=== PATIENT | male | born 1945 | race Caucasian/White ===

== ENCOUNTER → 2017-10-06 11:25 | Outpatient (CLI) | payer MEDICARE, OTHER, SELFPAY ==
[2017-10-06 11:47] LABS: Basophils % 0.3 % (0.1-2.0); Eosinophils # 0.3 K/mm3 (0.0-0.4); Hematocrit 34.7 % (42.0-52.0); Hemoglobin 11.4 g/dL (14.1-18.0); Lymphocytes # 1.7 K/mm3 (0.7-4.5); Lymphocytes % 15.5 K/mm3 (10-50); Mean Corpuscular HGB Conc 32.8 g/dL (31.8-35.4); Mean Corpuscular Hemoglobin 27.6 pg (27.0-31.2); Mean Corpuscular Volume 84.3 fl (80-94); Mean Platelet Volume 9.1 fl (7.4-10.4); Monocytes # 0.9 K/mm3 (0.1-1.0); Monocytes % 8.2 % (1.7-9.3); Neutrophils # 7.9 K/mm3 (1.8-7.8); Neutrophils % 72.9 % (37.0-80.0); Platelet Count 153 K/mm3 (142-424); Red Blood Count 4.11 M/mm3 (4.60-6.20); Red Cell Distribution Width 13.8 % (11.5-17.5); White Blood Count 10.8 K/mm3 (4.8-10.8)
[2017-10-06 12:53] LABS: Alanine Aminotransferase 30 U/L (12-78); Albumin Level 3.5 gm/dL (3.4-5.0); Albumin/Globulin Ratio 1.1 (1.1-1.8); Alkaline Phosphatase 68 U/L (46-116); Anion Gap 11.1 mEq/L (5-15); Aspartate Amino Transferase 13 U/L (15-37); Bilirubin,Total 0.5 mg/dL (0.2-1.0); Blood Urea Nitrogen 28 mg/dL (7-18); Calcium 8.4 mg/dL (8.5-10.1); Carbon Dioxide 29 mmol/L (21.0-32.0); Chloride 103 mmol/L (98-107); Creatinine,Serum 1.48 mg/dL (0.70-1.30); Estimated Glomerular Filt Rate 47 ml/min (>60); GFR (African American) 56 ML/MIN (>60); Globulin 3.2 gm/dl (1.3-3.2); Glucose 103 mg/dL (74-106); Potassium 4.1 mmoL/L (3.5-5.1); Sodium 139 mmol/L (136-145); Total Protein,Serum 6.7 gm/dL (6.4-8.2)
== END ==
PROVIDERS: PCP Nurse Practitioner Family; Visit Provider Nurse Practitioner Family
DX: J18.0 Bronchopneumonia, unspecified organism (principal); R42 Dizziness and giddiness; R19.7 Diarrhea, unspecified
CPT/HCPCS: 36415; 80053; 85025

== ENCOUNTER → 2018-01-20 10:31 | Outpatient (CLI) | payer MEDICARE, OTHER, SELFPAY ==
[2018-01-20 10:50] LABS: Basophils % 0.3 % (0.1-2.0); Eosinophils # 0.1 K/mm3 (0.0-0.4); Eosinophils % 1.4 % (0.1-12.0); Hematocrit 37.3 % (42.0-52.0); Hemoglobin 12.4 g/dL (14.1-18.0); Lymphocytes # 1.9 K/mm3 (0.7-4.5); Lymphocytes % 21.4 K/mm3 (10-50); Mean Corpuscular HGB Conc 33.3 g/dL (31.8-35.4); Mean Corpuscular Hemoglobin 28.1 pg (27.0-31.2); Mean Corpuscular Volume 84.4 fl (80-94); Mean Platelet Volume 7.6 fl (7.4-10.4); Monocytes # 0.7 K/mm3 (0.1-1.0); Monocytes % 7.6 % (1.7-9.3); Neutrophils # 6.2 K/mm3 (1.8-7.8); Neutrophils % 69.4 % (37.0-80.0); Platelet Count 208 K/mm3 (142-424); Red Blood Count 4.42 M/mm3 (4.60-6.20); Red Cell Distribution Width 13.4 % (11.5-17.5); White Blood Count 8.9 K/mm3 (4.8-10.8)
--- NOTE | 2018-01-20 11:11 | XR_ITS ---
XR chest 2V HISTORY: Cough, COPD ITS.REASON: COPD ORDERING PHYSICIAN: Ronna Bush PATIENT AGE: 72 years COMPARISON: 09/26/2017 FINDINGS: The cardiomediastinal silhouette and pulmonary vascularity are within normal limits. The lungs are clear without infiltrates, suspicious nodules, or pleural effusions. No acute bony abnormalities. IMPRESSION: Negative chest, no acute finding
[2018-01-20 12:13] LABS: Alanine Aminotransferase 26 U/L (12-78); Albumin Level 3.7 gm/dL (3.4-5.0); Albumin/Globulin Ratio 1.1 (1.1-1.8); Alkaline Phosphatase 98 U/L (46-116); Anion Gap 13.2 mEq/L (5-15); Aspartate Amino Transferase 18 U/L (15-37); Bilirubin,Total 0.5 mg/dL (0.2-1.0); Blood Urea Nitrogen 22 mg/dL (7-18); Calcium 9.1 mg/dL (8.5-10.1); Carbon Dioxide 27 mmol/L (21.0-32.0); Chloride 103 mmol/L (98-107); Chol/HDL Ratio 3.3 (1-3.5); Cholesterol 166 mg/dL (140-200); Creatinine,Serum 1.36 mg/dL (0.70-1.30); Estimated Glomerular Filt Rate 51 ml/min (>60); GFR (African American) 62 ML/MIN (>60); Globulin 3.4 gm/dl (1.3-3.2); Glucose 91 mg/dL (74-106); HDL Cholesterol 50 mg/dL (27-67); LDL Cholesterol 94 mg/dL (0-130); Potassium 4.2 mmoL/L (3.5-5.1); Sodium 139 mmol/L (136-145); Thyroid Stimulating Hormone 1.79 uIU/ml (0.358-3.740); Total Protein,Serum 7.1 gm/dL (6.4-8.2); Triglycerides 109 mg/dL (30-200); VLDL Cholesterol 22 mg/dL (0-40)
== END ==
PROVIDERS: Visit Provider Nurse Practitioner Family
DX: Z00.00 Encounter for general adult medical examination without abnormal findings (principal); E03.9 Hypothyroidism, unspecified; J44.1 Chronic obstructive pulmonary disease with (acute) exacerbation
CPT/HCPCS: 36415; 71046; 80053; 80061; 84443; 85025

== ENCOUNTER → 2018-05-10 15:48 | Outpatient (CLI) | payer MEDICARE, OTHER, SELFPAY ==
--- NOTE | 2018-05-10 16:06 | XR_ITS ---
XR chest 2V HISTORY: ITS.REASON: COPD, SOA, COUGH ORDERING PHYSICIAN: Ronna Bush PATIENT AGE: 72 years COMPARISON: 01/20/2018 FINDINGS: Borderline cardiomegaly without failure. No lobar consolidation or collapse. There is mild biapical pleural thickening unchanged. The mediastinum is somewhat prominent and may be related to mediastinal lipomatosis. This is not significantly changed. No acute bony anomalies. There are degenerative changes in the thoracic spine. IMPRESSION: No acute finding
[2018-05-10 16:46] LABS: Basophils % 0.2 % (0.1-2.0); Eosinophils % 0.3 % (0.1-12.0); Hematocrit 37.4 % (42.0-52.0); Hemoglobin 11.8 g/dL (14.1-18.0); Lymphocytes # 0.7 K/mm3 (0.7-4.5); Mean Corpuscular HGB Conc 31.6 g/dL (31.8-35.4); Mean Corpuscular Hemoglobin 26.9 pg (27.0-31.2); Mean Corpuscular Volume 84.9 fl (80-94); Mean Platelet Volume 7.5 fl (7.4-10.4); Monocytes # 0.3 K/mm3 (0.1-1.0); Monocytes % 3.4 % (1.7-9.3); Neutrophils # 8.6 K/mm3 (1.8-7.8); Neutrophils % 89.1 % (37.0-80.0); Platelet Count 135 K/mm3 (142-424); Red Cell Distribution Width 14.5 % (11.5-17.5); White Blood Count 9.6 K/mm3 (4.8-10.8)
[2018-05-10 16:55] LABS: MANUAL DIFFERENTIAL MANUAL DIFFERENTIAL (MANUAL DIFF)
[2018-05-10 17:32] LABS: Alanine Aminotransferase 30 U/L (12-78); Albumin Level 3.2 gm/dL (3.4-5.0); Albumin/Globulin Ratio 1.1 (1.1-1.8); Alkaline Phosphatase 57 U/L (46-116); Aspartate Amino Transferase 10 U/L (15-37); Bilirubin,Total 0.6 mg/dL (0.2-1.0); Blood Urea Nitrogen 19 mg/dL (7-18); Calcium 8.2 mg/dL (8.5-10.1); Carbon Dioxide 25 mmol/L (21.0-32.0); Chloride 102 mmol/L (98-107); Creatinine,Serum 1.43 mg/dL (0.70-1.30); Estimated Glomerular Filt Rate 48 ml/min (>60); GFR (African American) 59 ML/MIN (>60); Globulin 2.9 gm/dl (1.3-3.2); Glucose 184 mg/dL (74-106); Sodium 138 mmol/L (136-145); Total Protein,Serum 6.1 gm/dL (6.4-8.2)
[2018-05-10 17:33] LABS: Lymphocytes % 4 % (10-50); Monocytes % 1 % (2-9); Neutrophils % 95 % (42-76); Platelet Estimate Slight Decrease; RBC Morphology Normal; Total Cells Counted 100
== END ==
PROVIDERS: PCP Nurse Practitioner Family; Visit Provider Nurse Practitioner Family
DX: R05 Cough (principal); R06.02 Shortness of breath; J44.1 Chronic obstructive pulmonary disease with (acute) exacerbation
CPT/HCPCS: 36415; 71046; 80053; 85007; 85025

== ENCOUNTER 2018-05-12 13:55 | Inpatient (IN) ==
[2018-05-12 15:41] LABS: Basophils % 0.1 % (0.1-2.0); Eosinophils # 0.1 K/mm3 (0.0-0.4); Eosinophils % 0.5 % (0.1-12.0); Hematocrit 34.2 % (42.0-52.0); Hemoglobin 11.1 g/dL (14.1-18.0); Lymphocytes # 0.9 K/mm3 (0.7-4.5); Lymphocytes % 9.8 K/mm3 (10-50); Mean Corpuscular HGB Conc 32.5 g/dL (31.8-35.4); Mean Corpuscular Hemoglobin 27.5 pg (27.0-31.2); Mean Corpuscular Volume 84.6 fl (80-94); Mean Platelet Volume 7.3 fl (7.4-10.4); Monocytes # 0.3 K/mm3 (0.1-1.0); Monocytes % 3.3 % (1.7-9.3); Neutrophils # 7.8 K/mm3 (1.8-7.8); Neutrophils % 86.2 % (37.0-80.0); Platelet Count 151 K/mm3 (142-424); Red Blood Count 4.04 M/mm3 (4.60-6.20); Red Cell Distribution Width 14.5 % (11.5-17.5); White Blood Count 9.1 K/mm3 (4.8-10.8)
[2018-05-12 15:49] LABS: Anion Gap 8.8 mEq/L (5-15); Calcium 8.2 mg/dL (8.5-10.1); Potassium 3.8 mmoL/L (3.5-5.1)
--- NOTE | 2018-05-12 15:59 | Pharmacy Consult Notes ---
[facility] Pharmacy VTE Monitoring - Patient Demographics Admission date: 05/12/18 Report Date: 05/12/18 Time: 15:59 Allergies/Adverse Reactions: Patient Allergies menthol [From BenGay] Allergy (Mild, Verified 05/12/18 15:58) Unknown allergy reaction methyl salicylate [From BenGay] Allergy (Mild, Verified 05/12/18 15:58) Unknown allergy reaction ramipril [From ALTACE] Allergy (Mild, Verified 05/12/18 15:58) Unknown allergy reaction tetracycline [TETRACYCLINE] Allergy (Mild, Verified 05/12/18 15:58) Unknown allergy reaction tolmetin [From TOLECTIN] Allergy (Mild, Verified 05/12/18 15:58) Unknown allergy reaction tramadol [From ULTRAM] Allergy (Mild, Verified 05/12/18 15:58) Unknown allergy reaction Height: 1.85 m Weight: 130.408 kg - VTE Risk Labs: VTE Related Lab Results Hgb 11.1 g/dL (14.1-18.0) L 05/12/18 15:20 Hct 34.2 % (42.0-52.0) L 05/12/18 15:20 Plt Count 151 K/mm3 (142-424) 05/12/18 15:20 BUN 20 mg/dL (7-18) H 05/12/18 15:20 Creatinine 1.18 mg/dL (0.70-1.30) 05/12/18 15:20 Estimated Creat Clear 103 mL/min (0-300) 05/12/18 15:20 VTE Risk Level: Very Low Risk - Prophylaxis VTE Prophylaxis Ordered?: Yes Types of VTE Prophylaxis: TEDS Knee High Location of Applied Device: Bilateral Lower Extremeties - VTE Diagnosis Confirmed Treatment or plan recommended: Continue Current Treatment
[2018-05-12 16:49] LABS: Lymphocytes % 14 % (10-50); Monocytes % 2 % (2-9); Neutrophils % 84 % (42-76); RBC Morphology Normal; Total Cells Counted 100
--- NOTE | 2018-05-12 17:52 | History & Physical Report ---
*Admission Date: 05/12/18 *Chief complaint: Shortness of air and cough *History of present illness: 72-year-old white male with long history of COPD, prednisone and antibiotics over the past week with significant history of exacerbation. Has been treated with Augmentin, doxycycline and prednisone but came to the office today with cough, congestion. Found to have wheezing. Dyspnea. Admitted to hospital for in-hospital care for COPD exacerbation given failure of outpatient therapy. [facility] History I have reviewed the patient's past medical history: Yes Medical History: Reports:: BPH, Chronic Obstructive Pulmonary Disease (COPD) ("just mild" per pt), Coronary Artery Disease, Gastroesophageal Reflux Disease(GERD), Hyperlipidemia, Hypertension Denies:: Cancer, Diabetes Mellitus Type 1, Diabetes Mellitus Type 2, MRSA Laterality Cases: Bilateral: Arthroscopy Hip, Total Hip Replacement Other Surgeries: Yes: Other Amputation: No Fractures: No - *Social History Educational Level: Completed High School Smoking Status: Former smoker Alcohol Intake: never Occupational Status: retired Housing: house Household Members: spouse, children - Psychiatric History Expresses thoughts of harming self/others: None Suicide Plan Description: No Plan Review of Systems - Review of Systems Review of systems:: pertinent systems reviewed and negative unless documented below - Constitutional Denies anorexia, Denies body ache(s) - Eyes Denies blurry vision - ENT Denies bleeding gums, Denies change in voice - *Cardiovascular Reports shortness of breath, Reports shortness of breath with activity, Reports leg swelling, Denies chest pain, Denies chest pain at rest, Denies irregular heart rhythm, Denies leg sores, Denies shortness of breath when lying down - *Respiratory Reports change in phlegm color, Reports chest congestion, Reports cough, Reports shortness of breath, Reports excessive phlegm production, Denies coughing up blood, Denies pain on inspiration - *Gastrointestinal Denies abdominal pain, Denies belching, Denies coffee ground vomit, Denies constipation, Denies difficulty swallowing - *Genitourinary Denies difficulty urinating - *Musculoskeletal Denies abnormal walking, Denies joint pain - Integumentary/Breasts Denies hair loss - *Neurologic Denies abnormal walking Meds Home Medications Medication Instructions Recorded Confirmed Type Albuterol Sulfate [Albuterol HFA 90 mcg INHALATION DAILY 09/26/17 05/12/18 History Inhaler] Amlodipine Besylate [Amlodipine 10 mg PO DAILY 09/26/17 05/12/18 History 10mg Tab] Carvedilol [Carvedilol 25mg Tab] 25 mg PO BID 09/26/17 05/12/18 History Gabapentin [Gabapentin 300mg Cap] 300 mg PO BID 09/26/17 05/12/18 History Montelukast Sodium [Singulair 10mg 10 mg PO PM 09/26/17 05/12/18 History tablet] Pantoprazole Sodium [Protonix 40mg 40 mg PO DAILY 09/26/17 05/12/18 History tablet] Simvastatin 10 mg PO DAILY 09/26/17 05/12/18 History Amoxicillin/Potassium Clav 1 tab PO Q12H PRN 05/12/18 05/12/18 History [Augmentin 875-125 Tablet] Aspirin [Aspirin 81mg chewable 81 mg PO DAILY 05/12/18 05/12/18 History tab] Budesonide/Formoterol Fumarate 10.2 gm IH BID 05/12/18 05/12/18 History [Symbicort 160-4.5 Mcg Inhaler] Escitalopram Oxalate 20 mg PO DAILY 05/12/18 05/12/18 History Levothyroxine Sodium 50 mcg PO DAILY 05/12/18 05/12/18 History [Levothyroxine 50mcg (0.05mg) Tab] Metformin HCl [Metformin HCl ER] 500 mg PO BID 05/12/18 05/12/18 History predniSONE [Prednisone 20mg 20 mg PO BID 05/12/18 05/12/18 History Tab] Allergies Allergy/AdvReac Type Severity Reaction Status Date / Time menthol [From BenGay] Allergy Mild Unknown Verified 05/12/18 15:58 allergy reaction methyl salicylate Allergy Mild Unknown Verified 05/12/18 15:58 [From BenGay] allergy reaction ramipril [From ALTACE] Allergy Mild Unknown Verified 05/12/18 15:58 allergy reaction tetracycline [TETRACYCLINE] Allergy Mild Unknown Verified 05/12/18 15:58 allergy reaction tolmetin [From TOLECTIN] Allergy Mild Unknown Verified 05/12/18 15:58 allergy reaction tramadol [From ULTRAM] Allergy Mild Unknown Verified 05/12/18 15:58 allergy reaction Exam Vital signs and Labs for Last 24 Hours: Temp Pulse Resp BP Pulse Ox 97.9 F 66 20 150/83 98 05/12/18 15:07 05/12/18 15:07 05/12/18 15:07 05/12/18 15:07 05/12/18 15:44 Laboratory Results - last 24 hr 05/12/18 15:20: Sodium 135 L, Potassium 3.8, Chloride 103, Carbon Dioxide 27, Anion Gap 8.8, BUN 20 H, Creatinine 1.18, Estimated Creat Clear 103, Estimated GFR 61, Est GFR ( Amer) 73, Glucose 141 H, Calcium 8.2 L 05/12/18 15:20: WBC 9.1, RBC 4.04 L, Hgb 11.1 L, Hct 34.2 L, MCV 84.6, MCH 27.5, MCHC 32.5, RDW 14.5, Plt Count 151, MPV 7.3 L, Neut % (Auto) 86.2 H, Lymph % (Auto) 9.8 L, [place] % (Auto) 3.3, Eos % (Auto) 0.5, Baso % (Auto) 0.1, Neut # (Auto) 7.8, Lymph # (Auto) 0.9, [place] # (Auto) 0.3, Eos # (Auto) 0.1, Baso # (Auto) 0.0, Total Counted 100, Neutrophils % (Manual) 84 H, Lymphocytes % (Manual) 14, Monocytes % (Manual) 2, Platelet Estimate Normal, RBC Morphology Normal 05/12/18 15:20: Mycoplasma pneumon IgM Non-reactive 05/12/18 16:30: Influenza Type A Ag Negative, Influenza Type B Ag Negative I & O for Last 24 hours: Intake & Output 05/10/18 05/11/18 05/12/18 05/13/18 11:59 11:59 11:59 11:59 Weight 287 lb 8 oz Narrative: Oropharynx clear, no JVD, ENT exam otherwise clear. Lungs with rhonchi and wheezing in both lower and upper lung hammonds. Anterior and posterior lung hammonds have rhonchi in equal amounts. Heart rate regular but exam difficult because of wheezing and his obesity. Abdomen soft. 2+ ankle edema to the mid dukes. Old finding apparently. No skin breakdown. Patient is alert and oriented 3. Morbid obesity noted. Assessment and Plan (1) Chronic systolic CHF (congestive heart failure), NYHA class 2 Current visit: Yes Status: Acute Category: Medical Code(s): I50.22 - Chronic systolic (congestive) heart failure IV Lasix. Does not seem to be a significant exacerbation but given his IV fluids with antibiotics we will guard against fluid overload (2) Morbid obesity Current visit: Yes Status: Acute Category: Medical Code(s): E66.01 - Morbid (severe) obesity due to excess calories Complicates all aspects of his care (3) Hypertension, essential Current visit: Yes Status: Acute Category: Medical Code(s): I10 - Essential (primary) hypertension Complicate and factor (4) Hypothyroidism (acquired) Current visit: Yes Status: Acute Category: Medical Code(s): E03.9 - Hypothyroidism, unspecified Continue levothyroxine (5) History of depression Current visit: Yes Status: Acute Category: Medical Code(s): Z86.59 - Personal history of other mental and behavioral disorders Remains on SSRI. (6) COPD with exacerbation Current visit: No Status: Acute Category: Medical Code(s): J44.1 - Chronic obstructive pulmonary disease with (acute) exacerbation Admit, IV Solu-Medrol, enhanced pulmonary toilet. IV antibiotics.
[2018-05-13 06:25] LABS: Basophils % 0.1 % (0.1-2.0); Eosinophils % 0.1 % (0.1-12.0); Hematocrit 39.5 % (42.0-52.0); Lymphocytes # 1.1 K/mm3 (0.7-4.5); Mean Corpuscular HGB Conc 31.7 g/dL (31.8-35.4); Mean Corpuscular Hemoglobin 26.9 pg (27.0-31.2); Mean Corpuscular Volume 84.8 fl (80-94); Mean Platelet Volume 7.3 fl (7.4-10.4); Monocytes # 0.3 K/mm3 (0.1-1.0); Monocytes % 2.2 % (1.7-9.3); Neutrophils # 10.3 K/mm3 (1.8-7.8); Neutrophils % 88.6 % (37.0-80.0); Platelet Count 164 K/mm3 (142-424); Red Blood Count 4.66 M/mm3 (4.60-6.20); Red Cell Distribution Width 14.3 % (11.5-17.5); White Blood Count 11.6 K/mm3 (4.8-10.8)
[2018-05-13 07:00] LABS: Hemoglobin 12.5 g/dL (14.1-18.0)
--- NOTE | 2018-05-13 07:34 | Progress Note ---
Internal Medicine - PN: Subj *Date: 05/13/18 *Time: 07:33 Interval history: Overall patient feels much better, has had a good diuresis with IV Lasix. Breathing is improving. He feels nebulizers have helped significantly. Exam Vital signs and Labs for Last 24 Hours: Temp Pulse Resp BP Pulse Ox 97.8 F 84 22 188/90 95 05/13/18 04:00 05/13/18 07:11 05/13/18 04:00 05/13/18 04:00 05/13/18 07:11 Laboratory Results - last 24 hr 05/12/18 15:20: Sodium 135 L, Potassium 3.8, Chloride 103, Carbon Dioxide 27, Anion Gap 8.8, BUN 20 H, Creatinine 1.18, Estimated Creat Clear 103, Estimated GFR 61, Est GFR ( Amer) 73, Glucose 141 H, Calcium 8.2 L 05/12/18 15:20: WBC 9.1, RBC 4.04 L, Hgb 11.1 L, Hct 34.2 L, MCV 84.6, MCH 27.5, MCHC 32.5, RDW 14.5, Plt Count 151, MPV 7.3 L, Neut % (Auto) 86.2 H, Lymph % (Auto) 9.8 L, [place] % (Auto) 3.3, Eos % (Auto) 0.5, Baso % (Auto) 0.1, Neut # (Auto) 7.8, Lymph # (Auto) 0.9, [place] # (Auto) 0.3, Eos # (Auto) 0.1, Baso # (Auto) 0.0, Total Counted 100, Neutrophils % (Manual) 84 H, Lymphocytes % (Manual) 14, Monocytes % (Manual) 2, Platelet Estimate Normal, RBC Morphology Normal 05/12/18 15:20: Mycoplasma pneumon IgM Non-reactive 05/12/18 16:30: Influenza Type A Ag Negative, Influenza Type B Ag Negative 05/13/18 05:35: WBC 11.6 H D, RBC 4.66, Hgb 12.5 L D, Hct 39.5 L, MCV 84.8, MCH 26.9 L, MCHC 31.7 L, RDW 14.3, Plt Count 164, MPV 7.3 L, Neut % (Auto) 88.6 H, Lymph % (Auto) 9.0 L, [place] % (Auto) 2.2, Eos % (Auto) 0.1, Baso % (Auto) 0.1, Neut # (Auto) 10.3 H, Lymph # (Auto) 1.1, [place] # (Auto) 0.3, Eos # (Auto) 0.0, Baso # (Auto) 0.0 I & O for Last 24 hours: Intake & Output 05/10/18 05/11/18 05/12/18 05/13/18 11:59 11:59 11:59 11:59 Intake Total 1459 / 1459 Output Total 1700 / 1700 Balance -241 / -241 Weight 283 lb 6 oz Narrative: Patient is awake, pleasant. ENT exam clear. No JVD. Oropharynx clear. Lungs have much better air entry. He continues to have some rhonchi in the bases. Heart rate regular. Edema is much improved. Patient is wearing CRYSTAL hose. Assessment and Plan (1) Chronic systolic CHF (congestive heart failure), NYHA class 2 Current visit: Yes Status: Acute Category: Medical Code(s): I50.22 - Chronic systolic (congestive) heart failure (2) Morbid obesity Current visit: Yes Status: Acute Category: Medical Code(s): E66.01 - Morbid (severe) obesity due to excess calories (3) Hypertension, essential Current visit: Yes Status: Acute Category: Medical Code(s): I10 - Essential (primary) hypertension (4) Hypothyroidism (acquired) Current visit: Yes Status: Acute Category: Medical Code(s): E03.9 - Hypothyroidism, unspecified (5) History of depression Current visit: Yes Status: Acute Category: Medical Code(s): Z86.59 - Personal history of other mental and behavioral disorders (6) COPD with exacerbation Current visit: No Status: Acute Category: Medical Code(s): J44.1 - Chronic obstructive pulmonary disease with (acute) exacerbation - Assessment and plan all Dx Assessment and Plan for all problems:: Overall improving. Serologic testing negative. Await sputum culture and blood culture results given his significant infections burden over the past couple of weeks. Possible discharge home tomorrow with home nebulizer treatments.
[2018-05-13 07:46] LABS: Lymphocytes % 9 % (10-50); Monocytes % 3 % (2-9); Neutrophils % 86 % (42-76); Total Cells Counted 100
[2018-05-13 08:01] LABS: Anion Gap 13.3 mEq/L (5-15); Calcium 8.8 mg/dL (8.5-10.1); Potassium 4.3 mmoL/L (3.5-5.1)
[2018-05-14 06:48] LABS: Basophils % 0.1 % (0.1-2.0); Eosinophils % 0.1 % (0.1-12.0); Hematocrit 35.2 % (42.0-52.0); Hemoglobin 11.4 g/dL (14.1-18.0); Lymphocytes # 0.9 K/mm3 (0.7-4.5); Lymphocytes % 7.1 K/mm3 (10-50); Mean Corpuscular HGB Conc 32.3 g/dL (31.8-35.4); Mean Corpuscular Volume 83.5 fl (80-94); Mean Platelet Volume 7.1 fl (7.4-10.4); Monocytes # 0.5 K/mm3 (0.1-1.0); Monocytes % 4.2 % (1.7-9.3); Neutrophils # 11.3 K/mm3 (1.8-7.8); Neutrophils % 88.5 % (37.0-80.0); Platelet Count 146 K/mm3 (142-424); Red Blood Count 4.21 M/mm3 (4.60-6.20); Red Cell Distribution Width 14.4 % (11.5-17.5); White Blood Count 12.7 K/mm3 (4.8-10.8)
[2018-05-14 06:55] LABS: Anion Gap 9.4 mEq/L (5-15); Calcium 8.5 mg/dL (8.5-10.1); Potassium 3.4 mmoL/L (3.5-5.1)
[2018-05-14 07:15] LABS: Lymphocytes % 9 % (10-50); Monocytes % 2 % (2-9); Neutrophils % 84 % (42-76); RBC Morphology Normal; Total Cells Counted 100
--- NOTE | 2018-05-14 08:27 | Discharge Summary ---
General - General Admission date:: 05/12/18 Discharge date: 05/14/18 HPI HPI: 72-year-old white male with long history of COPD, prednisone and antibiotics over the past week with significant history of exacerbation. Has been treated with Augmentin, doxycycline and prednisone but came to the office today with cough, congestion. Found to have wheezing. Dyspnea. Admitted to hospital for in-hospital care for COPD exacerbation given failure of outpatient therapy. Hospital Course Hospital Course: Patient was admitted, diuresed with IV Lasix 3 doses. Had a good diuresis and nice improvement of his leg edema. Placed on standard community-acquired pneumonia/COPD exacerbation antibiotics and steroids. He did very nicely with this with the addition of nebulized albuterol/Atrovent to his regimen. Over the next 48 hours he improved. This morning his exam is nearly normal in his lungs. He will be discharged home with home nebulizer treatment, continued antibiotic therapy, Lasix and close follow-up in our office. Objective Vital signs: Temp Pulse Resp BP Pulse Ox 98.0 F 87 20 172/80 98 05/14/18 07:43 05/14/18 07:43 05/14/18 07:43 05/14/18 07:43 05/14/18 07:49 Narrative: Oropharynx clear, no JVD. Alert, oriented, no scleral icterus. Otherwise ENT exam clear. Lungs are much clearer with excellent air movement. Minimal rhonchi with a deep breath but vastly improved over admission. Heart rate regular without murmurs. Abdomen soft nontender. Extremities with trace ankle edema while wearing CRYSTAL hose. Results Labs on day of discharge: Labs from last 24 hours 05/14/18 05/14/18 06:08 06:08 WBC 12.7 H RBC 4.21 L Hgb 11.4 L Hct 35.2 L MCV 83.5 MCH 27.0 MCHC 32.3 RDW 14.4 Plt Count 146 MPV 7.1 L Neut % (Auto) 88.5 H Lymph % (Auto) 7.1 L [place] % (Auto) 4.2 Eos % (Auto) 0.1 Baso % (Auto) 0.1 Neut # (Auto) 11.3 H Lymph # (Auto) 0.9 [place] # (Auto) 0.5 Eos # (Auto) 0.0 Baso # (Auto) 0.0 Total Counted 100 Neutrophils % (Manual) 84 H Band Neutrophils % 5.0 Lymphocytes % (Manual) 9 L Monocytes % (Manual) 2 Platelet Estimate Normal RBC Morphology Normal Sodium 137 Potassium 3.4 L D Chloride 101 Carbon Dioxide 30 Anion Gap 9.4 BUN 31 H D Creatinine 1.18 Estimated Creat Clear 101 Estimated GFR 61 Est GFR ( Amer) 73 Glucose 149 H Calcium 8.5 DS: Diagnosis - Discharge Diagnosis (1) Chronic systolic CHF (congestive heart failure), NYHA class 2 Status: Acute (2) Morbid obesity Status: Acute (3) Hypertension, essential Status: Acute (4) Hypothyroidism (acquired) Status: Acute (5) History of depression Status: Acute (6) COPD with exacerbation Status: Acute Discharge Plan - Patient Discharge Instructions ACTIVITY: Continue current activity DIET: continue same diet - Follow up Plan Follow up with: Ronna Bush APRN [Nurse Practitioner] - 1 week Disposition: Home, Self-Detention Medications: Home Medications Medication Instructions Recorded Confirmed Type Albuterol Sulfate [Albuterol HFA 90 mcg INHALATION DAILY 09/26/17 05/12/18 History Inhaler] Amlodipine Besylate [Amlodipine 10 mg PO DAILY 09/26/17 05/12/18 History 10mg Tab] Carvedilol [Carvedilol 25mg Tab] 25 mg PO BID 09/26/17 05/12/18 History Gabapentin [Gabapentin 300mg Cap] 300 mg PO BID 09/26/17 05/12/18 History Montelukast Sodium [Singulair 10mg 10 mg PO PM 09/26/17 05/12/18 History tablet] Pantoprazole Sodium [Protonix 40mg 40 mg PO DAILY 09/26/17 05/12/18 History tablet] Simvastatin 10 mg PO DAILY 09/26/17 05/12/18 History Amoxicillin/Potassium Clav 1 tab PO Q12H PRN 05/12/18 05/12/18 History [Augmentin 875-125 Tablet] Aspirin [Aspirin 81mg chewable 81 mg PO DAILY 05/12/18 05/12/18 History tab] Budesonide/Formoterol Fumarate 10.2 gm IH BID 05/12/18 05/12/18 History [Symbicort 160-4.5 Mcg Inhaler] Escitalopram Oxalate 20 mg PO DAILY 05/12/18 05/12/18 History Levothyroxine Sodium 50 mcg PO DAILY 05/12/18 05/12/18 History [Levothyroxine 50mcg (0.05mg) Tab] Metformin HCl [Metformin HCl ER] 500 mg PO BID 05/12/18 05/12/18 History predniSONE [Prednisone 20mg 20 mg PO BID 05/12/18 05/12/18 History Tab] Prescriptions/Medication Reconciliation: New Azithromycin [Zithromax 250mg tab] 250 mg PO DIRECTED #6 tab Cefdinir [Omnicef 300mg Capsule] 300 mg PO BID #14 cap Ipratropium/Albuterol Sulfate [Duoneb 3mL neb] 3 ml IH TID 30 Days neb Continue Montelukast Sodium [Singulair 10mg tablet] 10 mg PO PM Amlodipine Besylate [Amlodipine 10mg Tab] 10 mg PO DAILY Simvastatin 10 mg PO DAILY Pantoprazole Sodium [Protonix 40mg tablet] 40 mg PO DAILY Gabapentin [Gabapentin 300mg Cap] 300 mg PO BID Carvedilol [Carvedilol 25mg Tab] 25 mg PO BID Aspirin [Aspirin 81mg chewable tab] 81 mg PO DAILY predniSONE [Prednisone 20mg Tab] 20 mg PO BID Budesonide/Formoterol Fumarate [Symbicort 160-4.5 Mcg Inhaler] 10.2 gm IH BID Metformin HCl [Metformin HCl ER] 500 mg PO BID Escitalopram Oxalate 20 mg PO DAILY Levothyroxine Sodium [Levothyroxine 50mcg (0.05mg) Tab] 50 mcg PO DAILY Discontinued Albuterol Sulfate [Albuterol HFA Inhaler] 90 mcg INHALATION DAILY Amoxicillin/Potassium Clav [Augmentin 875-125 Tablet] 1 tab PO Q12H PRN PRN Reason: DENTAL WORK
== END 2018-05-14 09:35 | disposition home or self-care (01) ==
LOC: 2ND 13:57
PROVIDERS: ADMIT Internal Medicine Adolescent Medicine; ATTEND Internal Medicine Adolescent Medicine

== ENCOUNTER → 2018-05-12 14:58 | Outpatient (CLI) | payer MEDICARE, OTHER, SELFPAY ==
[2018-05-12 13:15] LABS: Basophils % 0.3 % (0.1-2.0); Eosinophils # 0.1 K/mm3 (0.0-0.4); Eosinophils % 0.9 % (0.1-12.0); Hematocrit 35.6 % (42.0-52.0); Hemoglobin 11.3 g/dL (14.1-18.0); Lymphocytes # 0.9 K/mm3 (0.7-4.5); Mean Corpuscular HGB Conc 31.7 g/dL (31.8-35.4); Mean Corpuscular Hemoglobin 27.1 pg (27.0-31.2); Mean Corpuscular Volume 85.5 fl (80-94); Mean Platelet Volume 7.9 fl (7.4-10.4); Monocytes # 0.4 K/mm3 (0.1-1.0); Monocytes % 4.1 % (1.7-9.3); Neutrophils # 7.1 K/mm3 (1.8-7.8); Neutrophils % 83.7 % (37.0-80.0); Platelet Count 135 K/mm3 (142-424); Red Blood Count 4.16 M/mm3 (4.60-6.20); Red Cell Distribution Width 14.4 % (11.5-17.5); White Blood Count 8.5 K/mm3 (4.8-10.8)
[2018-05-12 13:20] LABS: Alanine Aminotransferase 27 U/L (12-78); Albumin Level 2.9 gm/dL (3.4-5.0); Albumin/Globulin Ratio 0.9 (1.1-1.8); Alkaline Phosphatase 54 U/L (46-116); Anion Gap 10.8 mEq/L (5-15); Aspartate Amino Transferase 7 U/L (15-37); Bilirubin,Total 0.5 mg/dL (0.2-1.0); Blood Urea Nitrogen 20 mg/dL (7-18); Calcium 8.3 mg/dL (8.5-10.1); Carbon Dioxide 28 mmol/L (21.0-32.0); Chloride 104 mmol/L (98-107); Creatinine,Serum 1.21 mg/dL (0.70-1.30); Estimated Glomerular Filt Rate 59 ml/min (>60); GFR (African American) 71 ML/MIN (>60); Globulin 3.3 gm/dl (1.3-3.2); Glucose 138 mg/dL (74-106); Potassium 3.8 mmoL/L (3.5-5.1); Sodium 139 mmol/L (136-145); Total Protein,Serum 6.2 gm/dL (6.4-8.2)
== END ==
PROVIDERS: PCP Internal Medicine Adolescent Medicine; Visit Provider Nurse Practitioner Family
DX: J44.1 Chronic obstructive pulmonary disease with (acute) exacerbation (principal)
CPT/HCPCS: 36415; 80053; 85025

== ENCOUNTER → 2018-05-30 08:19 | Outpatient (CLI) | payer MEDICARE, OTHER, SELFPAY ==
--- NOTE | 2018-05-30 08:21 | CA_ITS ---
PROCEDURE: 2-D M-mode and color Doppler study INDICATIONS FOR THE TEST: Chest pain COPD+ Heart Murmur+ Tobacco Smokingex Palpitations+ Fatigue+ Syncope+ Edema+ Hypertension+Diabetes Mellitus+ Rheumatic Fever SOB+JIMENEZ+Obesity+Hyperlipidemia+ Family History HD+ Additional History cad, chf, 2 cardiac stents PATIENT INFORMATION HEIGHT: 72 WEIGHT: 284 GENDER: Male B/P: 150/83 2-D/M-MODE INTERPRETATION: 2-D MEASUREMENTS OBSERVED VALUES IN CMS Right Ventricular Dimension (RVDd) 2.7 Interventricular Septum (Thickness)(IVsd) 1.9 Left Ventricular Internal Dimensions(LVIDd) 3.2 Left Ventricular Posterior Wall (Thickness)(LVPWd) 1.8 Aortic Root 3.0 Aortic Cusp Separation 2.1 Left Atrial Dimensions (LAD) 4.4 2D 1. Technically difficult study because of the patient's factor and poor acoustic windows 2. The left atrium is mildly enlarged, left ventricle is normal size, there is moderate concentric left ventricular hypertrophy, visually estimated ejection fraction of 55-60% with no regional wall motion abnormality. 3. The aortic valve is thickened and calcified. 4. The mitral and tricuspid valve are grossly normal. 5. The pulmonic valve is poorly visualized. 6. No significant pericardial effusion noted. DOPPLER INTERROGATION: Doppler interrogation of the aortic, mitral and tricuspid valve reveals mean gradient of 14 mmHg across the aortic valve this represents mild aortic stenosis, there is moderate aortic insufficiency present. There is mild mitral and tricuspid regurgitation noted, tricuspid regurgitation jet velocity is insufficient for calculation of the right ventricular systolic pressure, grade 1 diastolic dysfunction seen with tissue Doppler evidence of raised left atrial pressure. CONCLUSION: 1. Technically difficult study because of the patient's factor and poor acoustic windows 2. The left atrium is mildly enlarged, left ventricle is normal size, moderate concentric left ventricular hypertrophy, visually estimated ejection fraction of 55-60% with no obvious regional wall motion abnormality, grade 1 diastolic dysfunction seen with tissue Doppler evidence of raised left atrial pressure. 3. Thickened and calcified aortic valve with mild aortic stenosis, there is moderate aortic insufficiency. 4. Mild mitral and tricuspid regurgitation. 5. No significant pericardial effusion noted.
== END ==
PROVIDERS: PCP Internal Medicine Adolescent Medicine; Visit Provider Nurse Practitioner Family
DX: R06.02 Shortness of breath (principal); R42 Dizziness and giddiness; R60.9 Edema, unspecified
CPT/HCPCS: 93306

== ENCOUNTER 2018-09-19 22:30 | Inpatient (IN) ==
[2018-09-19 23:09] LABS: Basophils % 0.2 % (0.1-2.0); Eosinophils # 0.1 K/mm3 (0.0-0.4); Eosinophils % 0.7 % (0.1-12.0); Hematocrit 30.7 % (42.0-52.0); Lymphocytes # 1.7 K/mm3 (0.7-4.5); Lymphocytes % 8.4 % (10-50); Mean Corpuscular HGB Conc 35.8 g/dL (31.8-35.4); Mean Corpuscular Hemoglobin 29.5 pg (27.0-31.2); Mean Corpuscular Volume 82.5 fl (80-94); Mean Platelet Volume 6.9 fl (7.4-10.4); Monocytes % 5.2 % (1.7-9.3); Neutrophils % 85.5 % (37.0-80.0); Platelet Count 188 K/mm3 (142-424); Red Blood Count 3.72 M/mm3 (4.60-6.20); Red Cell Distribution Width 14.4 % (11.5-17.5); White Blood Count 19.8 K/mm3 (4.8-10.8)
[2018-09-19 23:20] LABS: Albumin Level 3.8 gm/dL (3.4-5.0); Anion Gap 13.7 mEq/L (5-15); Bilirubin,Total 0.4 mg/dL (0.2-1.0); Calcium 8.8 mg/dL (8.5-10.1); Globulin 3.8 gm/dl (1.3-3.2); Potassium 3.7 mmoL/L (3.5-5.1); Total Protein,Serum 7.6 gm/dL (6.4-8.2)
[2018-09-20 00:15] LABS: Microscopic, Urine URINE MICROSCOPIC (MICROSCOPIC)
[2018-09-20 00:19] LABS: Appearance,Urine CLEAR (Clear); Bilirubin,Urine Negative (Negative); Blood, Urine 2+ (Negative); Color,Urine YELLOW (Yellow); Glucose,Urine (UA) Negative (Negative); Ketones,Urine Negative (Negative); Leukocyte Esterase,Urine 1+ (Negative); PH,Urine 5.5 (5.0-8.5); Protein,Urine TRACE (Negative); Urobilinogen,Urine 0.2 EU/dl (0.2)
[2018-09-20 00:22] LABS: Eosinophils % 1 % (0-3); Lymphocytes % 7 % (10-50); Monocytes % 1 % (2-9); Neutrophils % 90 % (42-76); Total Cells Counted 100
[2018-09-20 00:23] LABS: Anisocytosis 1+; Ovalocytes 1+
--- NOTE | 2018-09-20 00:25 | Emergency Department Note ---
ED Disposition Clinical Impression: Morbid obesity, Renal insufficiency Community acquired pneumonia Qualifiers: Laterality: right Lung location: lower lobe of lung Qualified Code(s): J18.1 - Lobar pneumonia, unspecified organism Leukocytosis Qualifiers: Leukocytosis type: unspecified Qualified Code(s): D72.829 - Elevated white blood cell count, unspecified Disposition: Admitted as Observation Condition on Discharge: Good Referrals: Sterling Rodriguez MD [Primary Care Provider] - - Critical Care Critical Care Time: No Attestation: On 09/19/18, the high probability of a clinically significant, sudden or life threatening deterioration of the following system(s) required my full and direct attention, intervention and personal management. The time I documented below is in addition to time spent performing reported procedures but includes the following listed in this critical care notation. Medical Decision Making - Medical Records Medical records reviewed: Yes: I reviewed the patient's medical records. - Jesus Inquiry Pt receiving controlled substance: No Vital Signs: 09/19/18 22:35 09/20/18 00:02 Temperature 98.2 F Temperature Source Oral Pulse Rate [Right Brachial] 81 76 Respiratory Rate 18 16 Blood Pressure [Right Arm] 132/76 141/75 H Blood Pressure Mean [Right Arm] 94 97 Blood Pressure Source [Right Arm] Automatic Cuff Automatic Cuff Blood Pressure Position [Right Arm] Sitting Sitting 02 Sat by Pulse Oximetry 96 96 Oxygen Delivery Method Room Air Room Air - Lab Data Lab results reviewed: Yes: I reviewed the patient's lab results. Lab Results 09/19/18 22:41: Influenza Type A Ag Negative, Influenza Type B Ag Negative 09/19/18 22:56: WBC 19.8 H, RBC 3.72 L, Hgb 11.0 L, Hct 30.7 L, MCV 82.5, MCH 29.5, MCHC 35.8 H, RDW 14.4, Plt Count 188, MPV 6.9 L, Neut % (Auto) 85.5 H, Lymph % (Auto) 8.4 L, [place] % (Auto) 5.2, Eos % (Auto) 0.7, Baso % (Auto) 0.2, Neut # (Auto) 17.0 H, Lymph # (Auto) 1.7, [place] # (Auto) 1.0, Eos # (Auto) 0.1, Baso # (Auto) 0.0 09/19/18 22:56: Sodium 137, Potassium 3.7, Chloride 99, Carbon Dioxide 28, Anion Gap 13.7, BUN 21 H, Creatinine 1.41 H, Estimated Creat Clear 83, Estimated GFR 49 L, Est GFR ( Amer) 59, Glucose 108 H, Calcium 8.8, Total Bilirubin 0.4, AST 13 L, ALT 23, Alkaline Phosphatase 84, Total Protein 7.6, Albumin 3.8, Globulin 3.8 H, Albumin/Globulin Ratio 1.0 L 09/19/18 22:56: Lactate 1.0 Result diagrams: 09/19/18 22:56 09/19/18 22:56 Orders (Tests/Meds): ED MEDICATIONS Generic Name Dose Route Start Last Admin Trade Name Freq PRN Reason Stop Dose Admin Sodium Chloride 10 ml 09/19/18 22:49 Saline Flush 10ml Syringe IV 10/19/18 22:48 NEEDED PRN Maintain IV Site ORDERS Category Date Time Status CXR --portable [XR chest portable] Stat Exams 09/19/18 22:57 Taken Complete Blood Count Auto Diff Stat Lab 09/19/18 22:56 Results Urinalysis and Microscopic Stat Lab 09/20/18 00:08 Ordered Blood Culture Stat Micro 09/19/18 23:06 Ordered - Radiology Data #1 Image(s): Chest Image Reviewed: Yes I reviewed the patient's radiology image Preliminary Findings: Abnormal (changes rt base ) - Physician Consults Physician Consulted: kobe Reason -: Admission Resp/SOB HPI - General Chief Complaint: Fever Stated Complaint: fever,cough,vomiting Time Seen by Provider: 09/19/18 23:00 Mode of Arrival: Wheelchair Source of Information: Patient, Spouse, Medical Record Limitations: No Limitations Description of Symptoms (Recalled from ER Triage Doc. by RN): Pt has a fever for a couple days, cough, congestion, weakness, vomiting. - History of Present Illness progressive weakness and has cough with greenish sputum with fever/chills - no diabetes with dec po intake Complaint: cough Onset (ago): day(s) Severity: moderate Associated symptoms: fever, other (chills ) - Related Data Home oxygen amount: none Home Medications Medication Instructions Recorded Confirmed Carvedilol [Carvedilol 25mg Tab] 25 mg PO BID 09/26/17 09/19/18 Gabapentin [Gabapentin 300mg Cap] 300 mg PO BID 09/26/17 09/19/18 Montelukast Sodium [Singulair 10mg 10 mg PO PM 09/26/17 09/19/18 tablet] Pantoprazole Sodium [Protonix 40mg 40 mg PO DAILY 09/26/17 09/19/18 tablet] Simvastatin 10 mg PO DAILY 09/26/17 09/19/18 Aspirin [Aspirin 81mg chewable 81 mg PO DAILY 05/12/18 09/19/18 tab] Escitalopram Oxalate 20 mg PO DAILY 05/12/18 09/19/18 Levothyroxine Sodium 50 mcg PO DAILY 05/12/18 09/19/18 [Levothyroxine 50mcg (0.05mg) Tab] Losartan Potassium 100 mg PO DAILY 08/08/18 09/19/18 Oxycodone HCl/Acetaminophen 1 each PO BID PRN 08/08/18 09/19/18 [Percocet 7.5-325 mg Tablet] Potassium Chloride 20 meq PO DAILY 08/08/18 09/19/18 Allergies Allergy/AdvReac Type Severity Reaction Status Date / Time tolmetin [From TOLECTIN] Allergy Severe Anaphylaxis Verified 09/19/18 22:44 tetracycline [TETRACYCLINE] Allergy Intermediate Hives Verified 09/19/18 22:44 menthol [From BenGay] Allergy Mild Rash Verified 09/19/18 22:44 methyl salicylate Allergy Mild Rash Verified 09/19/18 22:44 [From BenGay] ramipril [From ALTACE] Allergy Mild Cough Verified 09/19/18 22:44 tramadol [From ULTRAM] Allergy Mild Nausea Verified 09/19/18 22:44 [facility] History - Hepatitis A Screen Drug use history?: No High risk sexual behaviors?: No History of sexually transmitted infection?: No Currently employed?: No Childcare worker?: No Do you have indoor plumbing?: Yes Do you have electricity?: Yes Attestation statement:: This patient has been screened for Hepatitis A risk factors. I have reviewed the patient's past medical history: Yes Medical History: Reports:: BPH, Chronic Obstructive Pulmonary Disease (COPD), Coronary Artery Disease, Gastroesophageal Reflux Disease(GERD), Hyperlipidemia, Hypertension Denies:: Cancer, Diabetes Mellitus Type 1, Diabetes Mellitus Type 2, MRSA Laterality Cases: Bilateral: Arthroscopy Hip, Total Hip Replacement Other Surgeries: Yes: Other Amputation: No Fractures: No Comment: spinal fusion, rt CEA, left elbow bursa, beto shoulders rotator cuff, rt shoulder replacement, rt thumb arthroplasty, EGD esophageal dilation x11, heart cath w/ 2 stents, oral surgery, lumbar discectomy x2, vasectomy, cystoscopy, bronchoscopy - Social History Smoking Status: Former smoker Alcohol Intake: never Occupational Status: retired Housing: house Household Members: spouse, children - Psychiatric History Expresses thoughts of harming self/others: None Suicide Plan Description: No Plan ROS Obtained: Yes All systems reviewed & no additional complaints - Constitutional Constitutional: Reports chills, Reports fever(s) - Eyes Eyes: Denies change in vision - ENT Ears, Nose, Mouth, and Throat: Denies sore throat - Cardiovascular Cardiovascular: Denies chest pain, Denies dyspnea - Respiratory Respiratory: Yes change in phlegm color, Yes cough - Gastrointestinal Gastrointestingal: Reports: as per HPI, nausea. Denies: diarrhea - Genitourinary Male Genitourinary: Denies hematuria - Musculoskeletal Musculoskeletal: Denies joint pain, Denies joint swelling, Denies neck pain - Integumentary/Breasts Skin/Breast: Denies rash - Neurologic Neurologic: Denies seizure-like activity Physical Exam - General General appearance: in no apparent distress, obese - Head Head exam: normocephalic - Eye Eye exam: Present: PERRL, EOMI. Absent: scleral icterus - ENT ENT exam: Present: mucous membranes dry - Neck Neck exam: Present: trachea midline - Respiratory Respiratory exam: Present: other (dec bs bilat ). Absent: respiratory distress - Cardiovascular Cardiovascular exam: Present: regular rate, systolic murmur, +S4 - Abdominal Exam Abdominal exam: Present: soft - Neurological Exam Neurological exam: Present: alert, oriented X3, CN II-XII intact - Psychiatric Psychiatric exam: Present: normal affect - Skin Skin exam: Absent: rash
[2018-09-20 00:58] LABS: Bacteria,Urine 4+ /lpf; Mucus,Urine 2+ /lpf
[2018-09-20 07:20] LABS: Basophils % 0.2 % (0.1-2.0); Eosinophils # 0.1 K/mm3 (0.0-0.4); Eosinophils % 0.3 % (0.1-12.0); Hematocrit 33.4 % (42.0-52.0); Hemoglobin 10.5 g/dL (14.1-18.0); Lymphocytes # 1.9 K/mm3 (0.7-4.5); Lymphocytes % 9.8 % (10-50); Mean Corpuscular HGB Conc 31.6 g/dL (31.8-35.4); Mean Corpuscular Hemoglobin 26.5 pg (27.0-31.2); Mean Corpuscular Volume 83.9 fl (80-94); Mean Platelet Volume 7.1 fl (7.4-10.4); Monocytes # 1.1 K/mm3 (0.1-1.0); Monocytes % 5.7 % (1.7-9.3); Neutrophils # 16.3 K/mm3 (1.8-7.8); Neutrophils % 83.9 % (37.0-80.0); Platelet Count 169 K/mm3 (142-424); Red Blood Count 3.98 M/mm3 (4.60-6.20); Red Cell Distribution Width 14.4 % (11.5-17.5); White Blood Count 19.4 K/mm3 (4.8-10.8)
[2018-09-20 07:27] LABS: Anion Gap 13.6 mEq/L (5-15); Blood Urea Nitrogen 18 mg/dL (7-18); Calcium 8.6 mg/dL (8.5-10.1); Carbon Dioxide 27 mmol/L (21.0-32.0); Chloride 99 mmol/L (98-107); Glucose 104 mg/dL (74-106); Potassium 3.6 mmoL/L (3.5-5.1); Sodium 136 mmol/L (136-145)
--- NOTE | 2018-09-20 07:48 | Pharmacy Consult Notes ---
[facility] Pharmacy VTE Monitoring - Patient Demographics Admission date: 09/20/18 Report Date: 09/20/18 Time: 07:48 Allergies/Adverse Reactions: Patient Allergies tolmetin [From TOLECTIN] Allergy (Severe, Verified 09/19/18 22:44) Anaphylaxis tetracycline [TETRACYCLINE] Allergy (Intermediate, Verified 09/19/18 22:44) Hives menthol [From BenGay] Allergy (Mild, Verified 09/19/18 22:44) Rash methyl salicylate [From BenGay] Allergy (Mild, Verified 09/19/18 22:44) Rash ramipril [From ALTACE] Allergy (Mild, Verified 09/19/18 22:44) Cough tramadol [From ULTRAM] Allergy (Mild, Verified 09/19/18 22:44) Nausea Height: 1.85 m Weight: 79.379 kg Patient Problems: Current Active Problems Morbid obesity (Acute) Community acquired pneumonia (Acute) Renal insufficiency (Acute) Leukocytosis (Acute) - VTE Risk Labs: VTE Related Lab Results Hgb 10.5 g/dL (14.1-18.0) L 09/20/18 06:53 Hct 33.4 % (42.0-52.0) L 09/20/18 06:53 Plt Count 169 K/mm3 (142-424) 09/20/18 06:53 BUN 18 mg/dL (7-18) 09/20/18 06:53 Creatinine 1.22 mg/dL (0.70-1.30) 09/20/18 06:53 Estimated Creat Clear 60 mL/min (50-200) 09/20/18 06:53 - Prophylaxis VTE Prophylaxis Ordered?: Yes Types of VTE Prophylaxis: TEDS Knee High Location of Applied Device: Bilateral Lower Extremeties - VTE Diagnosis Confirmed Treatment or plan recommended: Continue Current Treatment
--- NOTE | 2018-09-20 08:08 | History & Physical Report ---
*Admission Date: 09/20/18 *Chief complaint: Cough/congestion/weakness *History of present illness: 73-year-old white male with history of stroke disease in the recent past who K emerged with cough and congestion. Found to have right lower lobe infiltrate on chest x-ray, elevated white blood cell count and was admitted to hospital for IV therapy given his age, comorbidities and leukocytosis. He reports productive cough over the past week. Denies GI symptoms although has had some posttussive emesis in the hospital. No diarrhea noted. No ill contacts. [facility] History I have reviewed the patient's past medical history: Yes Medical History: Reports:: BPH, Cancer (skin), Chronic Obstructive Pulmonary Disease (COPD), Coronary Artery Disease, Gastroesophageal Reflux Disease(GERD), Hyperlipidemia, Hypertension Denies:: Diabetes Mellitus Type 1, Diabetes Mellitus Type 2, MRSA Have you ever received a pneumonia vaccine?: Yes Have you received a flu vaccine this season?: Yes Laterality Cases: Right: Arthroscopy Shoulder, Bilateral: Arthroscopy Hip, Total Hip Replacement Other Surgeries: Yes: Other Amputation: No Fractures: No - *Social History Educational Level: Completed GED/General Educational Development Smoking Status: Former smoker Tobacco Type: cigarettes Alcohol Intake: never Occupational Status: retired Housing: house Household Members: spouse, children Travel in the last 8 weeks: None - Psychiatric History Expresses thoughts of harming self/others: None Suicide Plan Description: No Plan *Family Hx:: No significant family history Review of Systems - Review of Systems Review of systems:: pertinent systems reviewed and negative unless documented below - Constitutional Reports chills, Reports fever(s), Denies anorexia, Denies body ache(s) - Eyes Denies blind spots, Denies blurry vision - ENT Denies abnormal hearing, Denies bleeding gums, Denies change in voice - *Cardiovascular Reports shortness of breath, Reports shortness of breath with activity, Denies chest pain, Denies chest pain at rest, Denies chest pain with activity, Denies irregular heart rhythm - *Respiratory Reports change in phlegm color, Reports chest congestion, Reports cough, Reports shortness of breath, Reports shortness of breath with activity, Reports excessive phlegm production, Reports wheezing, Denies stridor - *Gastrointestinal Reports vomiting, Denies abdominal pain, Denies belching, Denies coffee ground vomit, Denies vomiting blood, Denies bright, red blood in stools - *Genitourinary Denies difficulty urinating - *Musculoskeletal Denies abnormal walking - *Neurologic Denies seizure-like activity Meds Home Medications Medication Instructions Recorded Confirmed Type Carvedilol [Carvedilol 25mg Tab] 25 mg PO BID 09/26/17 09/19/18 History Gabapentin [Gabapentin 300mg Cap] 300 mg PO BID 09/26/17 09/19/18 History Montelukast Sodium [Singulair 10mg 10 mg PO PM 09/26/17 09/19/18 History tablet] Pantoprazole Sodium [Protonix 40mg 40 mg PO DAILY 09/26/17 09/19/18 History tablet] Simvastatin 10 mg PO DAILY 09/26/17 09/19/18 History Aspirin [Aspirin 81mg chewable 81 mg PO DAILY 05/12/18 09/19/18 History tab] Escitalopram Oxalate 20 mg PO DAILY 05/12/18 09/19/18 History Levothyroxine Sodium 50 mcg PO DAILY 05/12/18 09/19/18 History [Levothyroxine 50mcg (0.05mg) Tab] Losartan Potassium 100 mg PO DAILY 08/08/18 09/19/18 History Oxycodone HCl/Acetaminophen 1 each PO BID PRN 08/08/18 09/19/18 History [Percocet 7.5-325 mg Tablet] Potassium Chloride 20 meq PO DAILY 08/08/18 09/19/18 History Amlodipine Besylate 10 mg PO DAILY 09/20/18 09/20/18 History Allergies Allergy/AdvReac Type Severity Reaction Status Date / Time tolmetin [From TOLECTIN] Allergy Severe Anaphylaxis Verified 09/19/18 22:44 tetracycline [TETRACYCLINE] Allergy Intermediate Hives Verified 09/19/18 22:44 menthol [From BenGay] Allergy Mild Rash Verified 09/19/18 22:44 methyl salicylate Allergy Mild Rash Verified 09/19/18 22:44 [From BenGay] ramipril [From ALTACE] Allergy Mild Cough Verified 09/19/18 22:44 tramadol [From ULTRAM] Allergy Mild Nausea Verified 09/19/18 22:44 Exam Vital signs and Labs for Last 24 Hours: Temp Pulse Resp BP Pulse Ox 98.4 F 82 20 141/60 H 95 09/20/18 04:31 09/20/18 04:31 09/20/18 04:31 09/20/18 04:31 09/20/18 04:31 Laboratory Results - last 24 hr 09/19/18 22:41: Influenza Type A Ag Negative, Influenza Type B Ag Negative 09/19/18 22:56: WBC 19.8 H, RBC 3.72 L, Hgb 11.0 L, Hct 30.7 L, MCV 82.5, MCH 29.5, MCHC 35.8 H, RDW 14.4, Plt Count 188, MPV 6.9 L, Neut % (Auto) 85.5 H, Lymph % (Auto) 8.4 L, [place] % (Auto) 5.2, Eos % (Auto) 0.7, Baso % (Auto) 0.2, Neut # (Auto) 17.0 H, Lymph # (Auto) 1.7, [place] # (Auto) 1.0, Eos # (Auto) 0.1, Baso # (Auto) 0.0, Total Counted 100, Neutrophils % (Manual) 90 H, Lymphocytes % (Manual) 7 L, Monocytes % (Manual) 1 L, Eosinophils % (Manual) 1, Basophils % (Manual) 1.0, Platelet Estimate Normal, Anisocytosis 1+, Ovalocytes 1+ 09/19/18 22:56: Sodium 137, Potassium 3.7, Chloride 99, Carbon Dioxide 28, Anion Gap 13.7, BUN 21 H, Creatinine 1.41 H, Estimated Creat Clear 83, Estimated GFR 49 L, Est GFR ( Amer) 59, Glucose 108 H, Calcium 8.8, Total Bilirubin 0.4, AST 13 L, ALT 23, Alkaline Phosphatase 84, Total Protein 7.6, Albumin 3.8, Globulin 3.8 H, Albumin/Globulin Ratio 1.0 L 09/19/18 22:56: Lactate 1.0 09/20/18 00:08: Urine Color Yellow, Urine Appearance Clear, Urine pH 5.5, Ur Specific [place] 1.020, Urine Protein Trace, Urine Glucose (UA) Negative, Urine Ketones Negative, Urine Blood 2+, Urine Nitrate Positive, Urine Bilirubin Negative, Urine Urobilinogen 0.2, Ur Leukocyte Esterase 1+ A, Urine RBC 5-10, Urine WBC 10-20, Urine Bacteria 4+, Urine Mucus 2+ 09/20/18 03:50: Troponin I < 0.02 09/20/18 06:53: WBC 19.4 H, RBC 3.98 L, Hgb 10.5 L, Hct 33.4 L, MCV 83.9, MCH 26.5 L, MCHC 31.6 L, RDW 14.4, Plt Count 169, MPV 7.1 L, Neut % (Auto) 83.9 H, Lymph % (Auto) 9.8 L, [place] % (Auto) 5.7, Eos % (Auto) 0.3, Baso % (Auto) 0.2, Neut # (Auto) 16.3 H, Lymph # (Auto) 1.9, [place] # (Auto) 1.1 H, Eos # (Auto) 0.1, Baso # (Auto) 0.0 09/20/18 06:53: Sodium 136, Potassium 3.6, Chloride 99, Carbon Dioxide 27, Anion Gap 13.6, BUN 18, Creatinine 1.22, Estimated Creat Clear 60, Estimated GFR 58 L, Est GFR ( Amer) 70, Glucose 104, Calcium 8.6, Troponin I < 0.02 I & O for Last 24 hours: Intake & Output 09/17/18 09/18/18 09/19/18 09/20/18 11:59 11:59 11:59 11:59 Intake Total 1110 / 1110 Output Total 400 / 400 Balance 710 / 710 Weight 175 lb Narrative: Patient pleasant. Alert. Previously noted hemiparesis but cranial nerves are intact. New para heart rate regular. And soft and nontender. No clubbing/edema or cyanosis of his extremities and has good capillary refill. Crackles in both lower lung hammonds, slightly worse on the right. No wheezing. Good air movement. Assessment and Plan (1) Community acquired pneumonia Current visit: Yes Status: Acute Qualifiers: Laterality: right Lung location: lower lobe of lung Qualified Code(s): J18.1 - Lobar pneumonia, unspecified organism Category: Medical Code(s): J18.9 - Pneumonia, unspecified organism Agree with admission to hospital. IV antibiotics, culture sputum. Given fairly onset of disease will check upper respiratory PCR for viral pathogens. (2) Leukocytosis Current visit: Yes Status: Acute Qualifiers: Leukocytosis type: unspecified Qualified Code(s): D72.829 - Elevated white blood cell count, unspecified Category: Medical Code(s): D72.829 - Elevated white blood cell count, unspecified Follow in a.m. (3) Renal insufficiency Current visit: Yes Status: Acute Category: Medical Code(s): N28.9 - Disorder of kidney and ureter, unspecified Improved/resolved overnight with IV (4) Chronic systolic CHF (congestive heart failure), NYHA class 2 Current visit: No Status: Acute Category: Medical Code(s): I50.22 - Chronic systolic (congestive) heart failure Patient is euvolemic watch fluid status carefully
[2018-09-20 09:46] LABS: Coronavirus 229E Not Detected (NotDetected); Coronavirus NL63 Not Detected (NotDetected); Coronavirus OC43 Not Detected (NotDetected); Coronovirus HKU1,PCR Not Detected (NotDetected)
[2018-09-21 06:47] LABS: Basophils % 0.3 % (0.1-2.0); Eosinophils # 0.2 K/mm3 (0.0-0.4); Eosinophils % 1.2 % (0.1-12.0); Hematocrit 32.2 % (42.0-52.0); Lymphocytes # 1.9 K/mm3 (0.7-4.5); Lymphocytes % 14.7 % (10-50); Mean Corpuscular HGB Conc 31.1 g/dL (31.8-35.4); Mean Corpuscular Hemoglobin 26.3 pg (27.0-31.2); Mean Corpuscular Volume 84.6 fl (80-94); Mean Platelet Volume 7.6 fl (7.4-10.4); Monocytes # 0.7 K/mm3 (0.1-1.0); Monocytes % 5.6 % (1.7-9.3); Neutrophils # 9.8 K/mm3 (1.8-7.8); Neutrophils % 78.1 % (37.0-80.0); Platelet Count 171 K/mm3 (142-424); Red Blood Count 3.81 M/mm3 (4.60-6.20); Red Cell Distribution Width 14.4 % (11.5-17.5); White Blood Count 12.6 K/mm3 (4.8-10.8)
[2018-09-21 06:55] LABS: Anion Gap 11.8 mEq/L (5-15); Calcium 8.3 mg/dL (8.5-10.1); Potassium 3.8 mmoL/L (3.5-5.1)
--- NOTE | 2018-09-21 08:57 | Progress Note ---
Internal Medicine - PN: Subj *Date: 09/21/18 *Time: 08:00 Interval history: Patient states he "feels better." Continues to have non-productive cough, occasionally vomiting, no nausea. Appetite is good. [place] in place, no urinary symptoms. Exam Vital signs and Labs for Last 24 Hours: Temp Pulse Resp BP Pulse Ox 98.6 F 70 18 117/76 98 09/21/18 07:42 09/21/18 07:42 09/21/18 07:42 09/21/18 07:42 09/21/18 07:42 Laboratory Results - last 24 hr 09/20/18 00:08: Urine Color Yellow, Urine Appearance Clear, Urine pH 5.5, Ur Specific [place] 1.020, Urine Protein Trace, Urine Glucose (UA) Negative, Urine Ketones Negative, Urine Blood 2+, Urine Nitrate Positive, Urine Bilirubin Negative, Urine Urobilinogen 0.2, Ur Leukocyte Esterase 1+ A, Urine RBC 5-10, Urine WBC 10-20, Urine Bacteria 4+, Urine Mucus 2+ 09/20/18 08:45: Chlamy pneumoniae PCR Not detected, Adenovirus (PCR) Not detected, B. pertussis DNA (PCR) Not detected, Coronavirus OC43 (PCR) Not detected, Coronavirus HKU1 (PCR) Not detected, Coronavirus 229E (PCR) Not detected, Coronavirus NL63 (PCR) Not detected, Human Metapneumovir PCR Not detected, Influenza A (H1) PCR Not detected, Influ A (H1N1/09) PCR Not detected, Influenza A (H3) PCR Not detected, Influenza Type A (PCR) Not detected, Influenza Type B (PCR) Not detected, M. pneumoniae (PCR) Not detected, Parainfluenza 1 (PCR) Not detected, Parainfluenza 2 (PCR) Not detected, Parainfluenza 3 (PCR) Not detected, Parainfluenza 4 (PCR) Not detected, RSV (PCR) Not detected, Entero/Rhino (PCR) Not detected 09/21/18 06:05: WBC 12.6 H D, RBC 3.81 L, Hgb 10.0 L, Hct 32.2 L, MCV 84.6, MCH 26.3 L, MCHC 31.1 L, RDW 14.4, Plt Count 171, MPV 7.6, Neut % (Auto) 78.1, Lymph % (Auto) 14.7, [place] % (Auto) 5.6, Eos % (Auto) 1.2, Baso % (Auto) 0.3, Neut # (Auto) 9.8 H, Lymph # (Auto) 1.9, [place] # (Auto) 0.7, Eos # (Auto) 0.2, Baso # (Auto) 0.0 09/21/18 06:05: Sodium 137, Potassium 3.8, Chloride 102, Carbon Dioxide 27, Anion Gap 11.8, BUN 18, Creatinine 1.22, Estimated Creat Clear 95, Estimated GFR 58 L, Est GFR ( Amer) 70, Glucose 99, Calcium 8.3 L I & O for Last 24 hours: Intake & Output 09/18/18 09/19/18 09/20/18 09/21/18 11:59 11:59 11:59 11:59 Intake Total 1110 / 1110 2311 / 2311 Output Total 400 / 400 1325 / 1325 Balance 710 / 710 986 / 986 Weight 175 lb 279 lb Microbiology Reports for the Last 24 Hours: Microbiology 09/20/18 07:30 Sputum - Expectorated Sputum Gram Stain - Final 09/20/18 07:30 Sputum - Expectorated Sputum Sputum Culture - Preliminary 09/20/18 00:08 Urine,Catheterized Urine Culture - Preliminary Gram Negative Rods Narrative: Alert and oriented x3. Rate and rhythm regular. + murmur. 1+ BLE edema. Lung sounds with scattered wheezes, crackles RLL. Abdomen soft and nontender Assessment and Plan (1) Community acquired pneumonia Current visit: Yes Status: Acute Qualifiers: Laterality: right Lung location: lower lobe of lung Qualified Code(s): J18.1 - Lobar pneumonia, unspecified organism Category: Medical Code(s): J18.9 - Pneumonia, unspecified organism (2) Leukocytosis Current visit: Yes Status: Acute Qualifiers: Leukocytosis type: unspecified Qualified Code(s): D72.829 - Elevated white blood cell count, unspecified Category: Medical Code(s): D72.829 - Elevated white blood cell count, unspecified (3) Renal insufficiency Current visit: Yes Status: Acute Category: Medical Code(s): N28.9 - Disorder of kidney and ureter, unspecified (4) Chronic systolic CHF (congestive heart failure), NYHA class 2 Current visit: No Status: Acute Category: Medical Code(s): I50.22 - Chronic systolic (congestive) heart failure (5) UTI (urinary tract infection) Current visit: Yes Status: Acute Qualifiers: Urinary tract infection type: catheter-associated UTI Category: Medical Code(s): N39.0 - Urinary tract infection, site not specified - Assessment and plan all Dx Assessment and Plan for all problems:: Urine culture is growing gram - rods, sensitivity pending. UTI is likely the cause of his leukocytosis as respiratory symptoms are more viral in presentation. Sputum culture is pending. has been straight cathing at home TID since his stroke approx one month ago which puts him at high risk for recurrent UTI's. This is the second UTI in the last month. Continue broad spectrum antibiotics and leukocytosis/symptoms are improving, WBC 12 this morning. Up with PT today.
--- NOTE | 2018-09-22 00:24 | Discharge Summary ---
General - General Admission date:: 09/20/18 <Sterling Rodriguez - 09/22/18 08:23> 09/20/18 <John Marin - 09/22/18 00:24> Discharge date: 09/22/18 <John Marin - 09/22/18 00:24> HPI HPI: 73-year-old white male with history of stroke disease in the recent past who K emerged with cough and congestion. Found to have right lower lobe infiltrate on chest x-ray, elevated white blood cell count and was admitted to hospital for IV therapy given his age, comorbidities and leukocytosis. He reports productive cough over the past week. Denies GI symptoms although has had some posttussive emesis in the hospital. No diarrhea noted. No ill contacts. <John Marin - 09/22/18 00:24> Hospital Course Hospital Course: Patient was admitted to the hospital. And found to have a questionable right lower lobe infiltrate on his chest x-ray. Community-acquired pneumonia was diagnosed and antibiotics were started however he was found to have urinary tract infection with Escherichia coli, ESBL positive, sensitive to Augmentin therapy. This was treated during hospitalization empirically until the above- noted sensitivity panels returned. Patient had upper respiratory PCR testing that was unremarkable. I feel that his biggest symptoms/leukocytosis/fever or from the urinary tract infection and that the respiratory infection is most likely viral. Patient improved and this morning is doing very nicely. No oxygen requirement, back to his baseline functional status. He'll be discharged home finishing up azithromycin therapy and with a round of Augmentin. He will followup with us in 6 days and with his urologist. He will resume t.i.d. 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 <Sterling Rodriguez - 09/22/18 08:23> Objective Vital signs: Temp Pulse Resp BP Pulse Ox 98.1 F 62 18 145/83 H 98 09/22/18 04:00 09/22/18 04:00 09/22/18 04:00 09/22/18 04:00 09/22/18 04:00 <Sterling Rodriguez - 09/22/18 08:23> Temp Pulse Resp BP Pulse Ox 97.9 F 62 17 142/62 H 97 09/22/18 00:00 09/22/18 00:00 09/22/18 00:00 09/22/18 00:00 09/22/18 00:00 <John Marin - 09/22/18 00:24> no acute distress, cooperative <Sterling Rodriguez 09/22/18 08:23> - *Routine HEENT Exam Head: Present: normocephalic, atraumatic <Sterling Rodriguez 09/22/18 08:23> Eye: Present: EOMI, PERRL <Sterling Rodriguez 09/22/18 08:23> ENT: Present: mucous membranes moist <Sterling Rodriguez 09/22/18 08:23> - *Routine Neck Exam Present: supple, full ROM. Absent: JVD <Sterling Rodriguez 09/22/18 08:23> - *Routine Respiratory Exam Present: CTA bilaterally <Sterling Rodriguez 09/22/18 08:23> - *Routine Cardiovascular Exam Present: RRR, Normal S1, Normal S2 <Sterling Rodriguez 09/22/18 08:23> - *Routine Abdominal Exam Present: soft, normoactive bowel sounds <Sterling Rodriguez 09/22/18 08:23> - *Routine Extremities Exam Present: cyanosis, clubbing, full ROM, pulses intact <Sterling Rodriguez 09/22/18 08:23> Results Labs on day of discharge: Preliminary micro results at discharge 09/19/18 22:56 Blood Culture - Preliminary Blood NO GROWTH AFTER 48 HOURS 09/19/18 22:56 Blood Culture - Preliminary Blood NO GROWTH AFTER 48 HOURS <Sterling Rodriguez 09/22/18 08:23> Labs from last 24 hours 09/21/18 09/21/18 09/20/18 06:05 06:05 00:08 WBC 12.6 H D RBC 3.81 L Hgb 10.0 L Hct 32.2 L MCV 84.6 MCH 26.3 L MCHC 31.1 L RDW 14.4 Plt Count 171 MPV 7.6 Neut % (Auto) 78.1 Lymph % (Auto) 14.7 [place] % (Auto) 5.6 Eos % (Auto) 1.2 Baso % (Auto) 0.3 Neut # (Auto) 9.8 H Lymph # (Auto) 1.9 [place] # (Auto) 0.7 Eos # (Auto) 0.2 Baso # (Auto) 0.0 Sodium 137 Potassium 3.8 Chloride 102 Carbon Dioxide 27 Anion Gap 11.8 BUN 18 Creatinine 1.22 Estimated Creat Clear 95 Estimated GFR 58 L Est GFR ( Amer) 70 Glucose 99 Calcium 8.3 L Urine Color Yellow Urine Appearance Clear Urine pH 5.5 Ur Specific [place] 1.020 Urine Protein Trace Urine Glucose (UA) Negative Urine Ketones Negative Urine Blood 2+ Urine Nitrate Positive Urine Bilirubin Negative Urine Urobilinogen 0.2 Ur Leukocyte Esterase 1+ A Urine RBC 5-10 Urine WBC 10-20 Urine Bacteria 4+ Urine Mucus 2+ Preliminary micro results at discharge 09/19/18 22:56 Blood Culture - Preliminary Blood NO GROWTH AFTER 48 HOURS 09/19/18 22:56 Blood Culture - Preliminary Blood NO GROWTH AFTER 48 HOURS 09/20/18 07:30 Sputum Culture - Preliminary Sputum - Expectorated Sputum 09/20/18 00:08 Urine Culture - Preliminary Urine,Catheterized Gram Negative Rods <John Marin - 09/22/18 00:24> DS: Diagnosis - Discharge Diagnosis (1) Community acquired pneumonia Status: Acute (2) Leukocytosis Status: Acute (3) Renal insufficiency Status: Acute (4) Chronic systolic CHF (congestive heart failure), NYHA class 2 Status: Chronic (5) UTI (urinary tract infection) Status: Acute <John Marin - 09/22/18 00:19> (1) Community acquired pneumonia Status: Resolved (2) Leukocytosis Status: Resolved (3) Renal insufficiency Status: Resolved (4) Chronic systolic CHF (congestive heart failure), NYHA class 2 Status: Chronic (5) UTI (urinary tract infection) Status: Acute (6) E coli infection Status: Acute <Sterling Rodriguez - 09/22/18 08:23> Discharge Plan - Patient Discharge Instructions ACTIVITY: Continue current activity <John Marin - 09/22/18 00:24> DIET: continue same diet <John Marin - 09/22/18 00:24> - Follow up Plan Follow up with: Ronna Bush APRN [Nurse Practitioner] - 09/27/18 < Sterling Rodriguez - 09/22/18 08:23> Disposition: Home, Self-Care <Sterling Rodriguez - 09/22/18 08:23> Home Medications: Home Medications Medication Instructions Recorded Confirmed Type Carvedilol [Carvedilol 25mg Tab] 25 mg PO BID 09/26/17 09/19/18 History Gabapentin [Gabapentin 300mg Cap] 300 mg PO BID 09/26/17 09/20/18 History Montelukast Sodium [Singulair 10mg 10 mg PO HS 09/26/17 09/20/18 History tablet] Pantoprazole Sodium [Protonix 40mg 40 mg PO DAILY 09/26/17 09/19/18 History tablet] Simvastatin 10 mg PO DAILY 09/26/17 09/19/18 History Aspirin [Aspirin 81mg chewable 81 mg PO DAILY 05/12/18 09/19/18 History tab] Escitalopram Oxalate 20 mg PO DAILY 05/12/18 09/19/18 History Levothyroxine Sodium 50 mcg PO DAILY 05/12/18 09/19/18 History [Levothyroxine 50mcg (0.05mg) Tab] Oxycodone HCl/Acetaminophen 1 each PO BIDP PRN 08/08/18 09/20/18 History [Percocet 7.5-325 mg Tablet] Potassium Chloride 20 meq PO DAILY 08/08/18 09/19/18 History Amlodipine Besylate 10 mg PO DAILY 09/20/18 09/20/18 History Finasteride [Proscar 5mg Tablet] 5 mg PO DAILY 09/20/18 09/20/18 History Losartan Potassium 100 mg PO DAILY 09/20/18 09/20/18 History Tamsulosin HCl [Flomax 0.4mg 0.4 mg PO DAILY 09/20/18 09/20/18 History capsule] Amoxicillin/Potassium Clav 1 tab PO Q12H 6 Days #12 tab 09/22/18 Rx [Augmentin 875-125 Tablet] Azithromycin [Zithromax 250mg 250 mg PO DAILY 1 Days #1 tab 09/22/18 Rx tab] <Sterling Rodriguez - 09/22/18 08:23> Prescriptions/Medication Reconciliation: New Azithromycin [Zithromax 250mg tab] 250 mg PO DAILY 1 Days #1 tab Amoxicillin/Potassium Clav [Augmentin 875-125 Tablet] 1 tab PO Q12H 6 Days #12 tab Continue Montelukast Sodium [Singulair 10mg tablet] 10 mg PO HS Simvastatin 10 mg PO DAILY Pantoprazole Sodium [Protonix 40mg tablet] 40 mg PO DAILY Gabapentin [Gabapentin 300mg Cap] 300 mg PO BID Carvedilol [Carvedilol 25mg Tab] 25 mg PO BID Aspirin [Aspirin 81mg chewable tab] 81 mg PO DAILY Losartan Potassium 100 mg PO DAILY Escitalopram Oxalate 20 mg PO DAILY Levothyroxine Sodium [Levothyroxine 50mcg (0.05mg) Tab] 50 mcg PO DAILY Potassium Chloride 20 meq PO DAILY Oxycodone HCl/Acetaminophen [Percocet 7.5-325 mg Tablet] 1 each PO BIDP PRN PRN Reason: pain Amlodipine Besylate 10 mg PO DAILY Finasteride [Proscar 5mg Tablet] 5 mg PO DAILY Tamsulosin HCl [Flomax 0.4mg capsule] 0.4 mg PO DAILY <Sterling Rodriguez - 09/22/18 08:23>
== END 2018-09-22 09:37 | disposition home or self-care (01) | DRG 698 ==
LOC: ER 22:30 → ICU 22:30 → 2ND 09-21 17:08
PROVIDERS: ADMIT Internal Medicine Adolescent Medicine; ATTEND Internal Medicine Adolescent Medicine
DX: R33.8 Other retention of urine; B96.29 Other Escherichia coli [E. coli] as the cause of diseases classified elsewhere; I11.0 Hypertensive heart disease with heart failure; I50.22 Chronic systolic (congestive) heart failure; T83.511A Infection and inflammatory reaction due to indwelling urethral catheter, initial encounter; N39.0 Urinary tract infection, site not specified; I69.351 Hemiplegia and hemiparesis following cerebral infarction affecting right dominant side; J18.9 Pneumonia, unspecified organism; I69.398 Other sequelae of cerebral infarction
CPT/HCPCS: 36415; 71010; 71045; 80048; 80053; 81001; 83605; 84484; 85007; 85025; 87040; 87070; 87086; 87088; 87186; 87205; 87275; 87276; 87486; 87581; 87633; 87798; 96365; 97162; 99285; J0456; J2405

== ENCOUNTER 2018-10-22 12:14 | Observation (INO) ==
--- NOTE | 2018-10-22 12:31 | Emergency Department Note ---
ED Disposition Clinical Impression: Urinary tract infection Qualifiers: Urinary tract infection type: site unspecified Hematuria presence: without hematuria Qualified Code(s): N39.0 - Urinary tract infection, site not specified Disposition: Admitted as Observation Condition on Discharge: Fair Referrals: Sterling Rodriguez MD [Primary Care Provider] - - Critical Care Critical Care Time: No Attestation: On 10/22/18, the high probability of a clinically significant, sudden or life threatening deterioration of the following system(s) required my full and direct attention, intervention and personal management. The time I documented below is in addition to time spent performing reported procedures but includes the following listed in this critical care notation. Medical Decision Making - Jesus Inquiry Pt receiving controlled substance: No Vital Signs: 10/22/18 12:21 10/22/18 13:15 10/22/18 13:40 Temperature 101.9 F H Temperature Source Temporal Artery Scan Pulse Rate [Right Radial] 101 H 93 H 94 H Respiratory Rate 20 20 Blood Pressure [Right Arm] 140/78 119/75 119/64 Blood Pressure Mean [Right Arm] 98 89 82 Blood Pressure Source [Right Arm] Automatic Cuff Automatic Cuff Automatic Cuff Blood Pressure Position [Right Arm] Sitting Sitting 02 Sat by Pulse Oximetry 96 93 L 93 L Oxygen Delivery Method Room Air Room Air Room Air 10/22/18 13:50 Temperature 101.7 F H Temperature Source Tympanic Pulse Rate [Right Radial] Respiratory Rate Blood Pressure [Right Arm] Blood Pressure Mean [Right Arm] Blood Pressure Source [Right Arm] Blood Pressure Position [Right Arm] 02 Sat by Pulse Oximetry Oxygen Delivery Method - Lab Data Lab Results 10/22/18 12:25: Influenza Type A Ag Negative, Influenza Type B Ag Negative 10/22/18 12:45: WBC 12.8 H, RBC 4.28 L, Hgb 11.3 L, Hct 34.2 L, MCV 80.0, MCH 26.3 L, MCHC 32.9, RDW 15.0, Plt Count 180, MPV 7.3 L, Neut % (Auto) 89.0 H, Lymph % (Auto) 4.7 L, [place] % (Auto) 5.4, Eos % (Auto) 0.7, Baso % (Auto) 0.3, Neut # (Auto) 11.4 H, Lymph # (Auto) 0.6 L, [place] # (Auto) 0.7, Eos # (Auto) 0.1, Baso # (Auto) 0.0, Total Counted 100, Neutrophils % (Manual) 89 H, Lymphocytes % (Manual) 3 L, Atypical Lymphs % 2.0, Monocytes % (Manual) 6, Platelet Estimate Normal, RBC Morphology Normal 10/22/18 12:45: Sodium 136, Potassium 3.9, Chloride 98, Carbon Dioxide 28, Anion Gap 13.9, BUN 19 H, Creatinine 1.62 H, Estimated Creat Clear 72, Estimated GFR 42 L, Est GFR ( Amer) 51 L, Glucose 119 H, Calcium 9.2, Total Bilirubin 0.7, AST 17, ALT 20, Alkaline Phosphatase 86, Total Protein 7.3, Albumin 3.5, Globulin 3.8 H, Albumin/Globulin Ratio 0.9 L 10/22/18 12:45: Lactate 1.9 10/22/18 13:05: Urine Color Yellow, Urine Appearance Cloudy, Urine pH 7.0, Ur Specific [place] 1.010, Urine Protein Negative, Urine Glucose (UA) Negative, Urine Ketones Negative, Urine Blood 1+, Urine Nitrate Positive, Urine Bilirubin Negative, Urine Urobilinogen 0.2, Ur Leukocyte Esterase 2+ A, Urine WBC 20-50, Ur Squamous Epith Cells 3-5, Urine Bacteria 4+ Result diagrams: 10/22/18 12:45 10/22/18 12:45 Orders (Tests/Meds): ED MEDICATIONS Generic Name Dose Route Start Last Admin Trade Name Freq PRN Reason Stop Dose Admin Ceftriaxone Sodium 1 gm/ 50 mls @ 100 mls/hr 10/22/18 14:00 10/22/18 14:08 Sodium Chloride IV 11/05/18 13:59 100 mls/hr Q24H DA Administration Protocol Sodium Chloride 10 ml 10/22/18 12:39 Saline Flush 10ml Syringe IV 11/21/18 12:38 NEEDED PRN Maintain IV Site Discontinued Medications Generic Name Dose Route Start Last Admin Trade Name Freq PRN Reason Stop Dose Admin Acetaminophen 650 mg 10/22/18 12:40 10/22/18 12:46 Acetaminophen 325mg Tab PO 10/22/18 12:41 650 mg ONCE ONE Administration ORDERS Category Date Time Status XR chest portable Stat Exams 10/22/18 12:38 Taken Urinalysis and Microscopic Stat Lab 10/22/18 13:05 Ordered Blood Culture Stat Micro 10/22/18 12:45 Received Urine Culture Stat Micro 10/22/18 13:05 Received - Radiology Data #1 Image(s): Chest Image Reviewed: Yes I reviewed the patient's radiology image Preliminary Findings: Normal/NAD - Physician Consults Physician Consulted: Betty Rodriguez Time: 14:27 Reason -: Admission Comment/Response: Agrees to admit the patient to the hospital. We discussed the patient's clinical information, including history, exam, laboratory and radiology results and ED course. Per hospital procedure, I will write temporary bridge inpatient orders on the patient. Specific orders requested by the admitting physician: Continue antibiotics General Adult HPI - General Stated complaint: fver vomiting Time Seen by Provider: 10/22/18 12:30 - History of Present Illness HPI narrative: Onset of vomiting this morning, then took a severe chill and was discovered to have a temperature of 103 degrees. No diarrhea. Denies any pain anywhere including abdominal pain. He has to self catheterize 3 times a day and his suspects he has a urinary tract infection. He is currently on Bactrim. He just recently had a cystoscopy 10/19/[address] Crowder for his urinary retention. He is being referred for a TURP. He was given Zofran and Phenergan at home. No medication was given for his fever. Denies cough or sore throat. Minimal rhinorrhea which is chronic. - Related Data Home Medications Medication Instructions Recorded Confirmed Carvedilol [Carvedilol 25mg Tab] 25 mg PO BID 09/26/17 10/12/18 Gabapentin [Gabapentin 300mg Cap] 300 mg PO BID 09/26/17 10/12/18 Montelukast Sodium [Singulair 10mg 10 mg PO HS 09/26/17 10/12/18 tablet] Pantoprazole Sodium [Protonix 40mg 40 mg PO DAILY 09/26/17 10/12/18 tablet] Simvastatin 10 mg PO DAILY 09/26/17 10/12/18 Aspirin [Aspirin 81mg chewable 81 mg PO DAILY 05/12/18 10/12/18 tab] Escitalopram Oxalate 20 mg PO DAILY 05/12/18 10/12/18 Levothyroxine Sodium 50 mcg PO DAILY 05/12/18 10/12/18 [Levothyroxine 50mcg (0.05mg) Tab] Oxycodone HCl/Acetaminophen 1 each PO BIDP PRN 08/08/18 10/12/18 [Percocet 7.5-325 mg Tablet] Potassium Chloride 20 meq PO DAILY 08/08/18 10/12/18 Amlodipine Besylate 10 mg PO DAILY 09/20/18 10/12/18 Finasteride [Proscar 5mg Tablet] 5 mg PO DAILY 09/20/18 10/12/18 Losartan Potassium 100 mg PO DAILY 09/20/18 10/12/18 Tamsulosin HCl [Flomax 0.4mg 0.4 mg PO DAILY 09/20/18 10/12/18 capsule] Sulfamethoxazole/Trimethoprim 1 tab PO DAILY 10/22/18 10/22/18 [Sulfamethoxazole-Tmp Ss Tablet] Allergies Allergy/AdvReac Type Severity Reaction Status Date / Time tolmetin [From TOLECTIN] Allergy Severe Anaphylaxis Verified 10/12/18 10:52 tetracycline [TETRACYCLINE] Allergy Intermediate Hives Verified 10/12/18 10:52 menthol [From BenGay] Allergy Mild Rash Verified 10/12/18 10:52 methyl salicylate Allergy Mild Rash Verified 10/12/18 10:52 [From BenGay] ramipril [From ALTACE] Allergy Mild Cough Verified 10/12/18 10:52 tramadol [From ULTRAM] Allergy Mild Nausea Verified 10/12/18 10:52 [facility] History - Hepatitis A Screen Attestation statement:: This patient has been screened for Hepatitis A risk factors. I have reviewed the patient's past medical history: Yes Medical History: Reports:: BPH, Cancer, Chronic Obstructive Pulmonary Disease (COPD), Coronary Artery Disease, Gastroesophageal Reflux Disease(GERD), Hyperlipidemia, Hypertension Denies:: Diabetes Mellitus Type 1, Diabetes Mellitus Type 2, MRSA Laterality Cases: Right: Arthroscopy Shoulder, Bilateral: Arthroscopy Hip, Total Hip Replacement Other Surgeries: Yes: Other Amputation: No Fractures: No Comment: spinal fusion, rt CEA, left elbow bursa, beto shoulders rotator cuff, rt shoulder replacement, rt thumb arthroplasty, EGD esophageal dilation x11, heart cath w/ 2 stents, oral surgery, lumbar discectomy x2, vasectomy, cystoscopy, bronchoscopy - Social History Smoking Status: Former smoker Tobacco Type: cigarettes Alcohol Intake: never Occupational Status: retired Housing: house Household Members: spouse, children Family Hx:: No significant family history ROS Obtained: Yes All systems reviewed & no additional complaints - Constitutional Constitutional: Reports chills, Reports fever(s) - Cardiovascular Cardiovascular: Denies chest pain - Respiratory Respiratory: No cough, No dyspnea, No excessive phlegm production - Gastrointestinal Gastrointestingal: Reports: vomiting. Denies: abdominal pain, diarrhea - Genitourinary Male Genitourinary: Reports as per HPI - Musculoskeletal Musculoskeletal: Denies back pain, Denies neck pain - Neurologic Neurologic: Denies headache(s) Physical Exam - General General appearance: alert, in no apparent distress - Head Head exam: atraumatic, normocephalic - Eye Eye exam: Present: normal appearance, PERRL, EOMI - ENT ENT exam: Present: mucous membranes moist - Neck Neck exam: Present: normal inspection, trachea midline. Absent: meningismus, lymphadenopathy - Chest Chest inspection: Present: normal inspection, symmetric chest wall rise - Respiratory Respiratory exam: Present: normal lung sounds bilaterally. Absent: respiratory distress - Cardiovascular Cardiovascular exam: Present: regular rate, normal rhythm, normal heart sounds - Abdominal Exam Abdominal exam: Present: soft, tenderness. Absent: distention, guarding, rebound, rigidity Abdominal tenderness: Present: diffuse, mild - Extremities Exam Extremities exam: Present: normal inspection. Absent: tenderness - Neurological Exam Neurological exam: Present: alert, oriented X3 - Psychiatric Psychiatric exam: Present: normal affect, normal mood
[2018-10-22 12:55] LABS: Basophils % 0.3 % (0.1-2.0); Eosinophils # 0.1 K/mm3 (0.0-0.4); Eosinophils % 0.7 % (0.1-12.0); Hematocrit 34.2 % (42.0-52.0); Hemoglobin 11.3 g/dL (14.1-18.0); Lymphocytes # 0.6 K/mm3 (0.7-4.5); Lymphocytes % 4.7 % (10-50); Mean Corpuscular HGB Conc 32.9 g/dL (31.8-35.4); Mean Corpuscular Hemoglobin 26.3 pg (27.0-31.2); Mean Platelet Volume 7.3 fl (7.4-10.4); Monocytes # 0.7 K/mm3 (0.1-1.0); Monocytes % 5.4 % (1.7-9.3); Neutrophils # 11.4 K/mm3 (1.8-7.8); Platelet Count 180 K/mm3 (142-424); Red Blood Count 4.28 M/mm3 (4.60-6.20); White Blood Count 12.8 K/mm3 (4.8-10.8)
[2018-10-22 13:10] LABS: Albumin Level 3.5 gm/dL (3.4-5.0); Albumin/Globulin Ratio 0.9 (1.1-1.8); Anion Gap 13.9 mEq/L (5-15); Bilirubin,Total 0.7 mg/dL (0.2-1.0); Calcium 9.2 mg/dL (8.5-10.1); Globulin 3.8 gm/dl (1.3-3.2); Potassium 3.9 mmoL/L (3.5-5.1); Total Protein,Serum 7.3 gm/dL (6.4-8.2)
[2018-10-22 13:11] LABS: Lymphocytes % 3 % (10-50); Monocytes % 6 % (2-9); Neutrophils % 89 % (42-76); RBC Morphology Normal; Total Cells Counted 100
[2018-10-22 13:11] LABS: Microscopic, Urine URINE MICROSCOPIC (MICROSCOPIC)
[2018-10-22 13:21] LABS: Appearance,Urine CLOUDY (Clear); Bilirubin,Urine Negative (Negative); Blood, Urine 1+ (Negative); Color,Urine YELLOW (Yellow); Glucose,Urine (UA) Negative (Negative); Ketones,Urine Negative (Negative); Leukocyte Esterase,Urine 2+ (Negative); Protein,Urine Negative (Negative); Urobilinogen,Urine 0.2 EU/dl (0.2)
[2018-10-22 13:31] LABS: Bacteria,Urine 4+ /lpf; WBC,Urine 20-50 #/hpf (0-3)
--- NOTE | 2018-10-23 07:21 | Pharmacy Consult Notes ---
[facility] Pharmacy VTE Monitoring - Patient Demographics Admission date: 10/22/18 Report Date: 10/23/18 Time: 07:21 Allergies/Adverse Reactions: Patient Allergies tolmetin [From TOLECTIN] Allergy (Severe, Verified 10/12/18 10:52) Anaphylaxis tetracycline [TETRACYCLINE] Allergy (Intermediate, Verified 10/12/18 10:52) Hives menthol [From BenGay] Allergy (Mild, Verified 10/12/18 10:52) Rash methyl salicylate [From BenGay] Allergy (Mild, Verified 10/12/18 10:52) Rash ramipril [From ALTACE] Allergy (Mild, Verified 10/12/18 10:52) Cough tramadol [From ULTRAM] Allergy (Mild, Verified 10/12/18 10:52) Nausea Height: 1.85 m Weight: 122.045 kg Patient Problems: Current Active Problems UTI (urinary tract infection) (Acute) - VTE Risk Labs: VTE Related Lab Results Hgb 11.3 g/dL (14.1-18.0) L 10/22/18 12:45 Hct 34.2 % (42.0-52.0) L 10/22/18 12:45 Plt Count 180 K/mm3 (142-424) 10/22/18 12:45 BUN 19 mg/dL (7-18) H 10/22/18 12:45 Creatinine 1.62 mg/dL (0.70-1.30) H 10/22/18 12:45 Estimated Creat Clear 72 mL/min (50-200) 10/22/18 12:45 Was VTE Risk Assessment Performed: Yes VTE Score: 8 VTE Risk Level: Moderate Risk - Prophylaxis VTE Prophylaxis Ordered?: Yes Types of VTE Prophylaxis: TEDS Knee High Location of Applied Device: Bilateral Lower Extremeties - VTE Diagnosis Confirmed Treatment or plan recommended: Continue Current Treatment
--- NOTE | 2018-10-23 08:07 | History & Physical Report ---
*Admission Date: 10/22/18 *Chief complaint: Fever chills *History of present illness: 73-year-old white male with recent history of stroke disease that has left him with bladder outlet obstruction/dysfunction who undergoes self-catheterization procedure 3 times daily at home who has had a recent urinary tract infection who came to the emergency department with fever and chills and was found to have evidence of urinary tract infection. Given his repetitive instrumentation and high risk of resistant organism admitted to hospital for IV antibiotics. This morning he feels better. Denies respiratory symptoms. [facility] History I have reviewed the patient's past medical history: Yes Medical History: Reports:: BPH, Cancer, Chronic Obstructive Pulmonary Disease (COPD), Coronary Artery Disease, Gastroesophageal Reflux Disease(GERD), Hyperlipidemia, Hypertension Denies:: Diabetes Mellitus Type 1, Diabetes Mellitus Type 2, MRSA *Have you ever received a pneumonia vaccine?: Yes *Have you received a flu vaccine this season?: Yes Other Medical History: Reports: Anemia, Arthritis, Cataracts, Hypothyroidism Laterality Cases: Bilateral: Arthroscopy Hip, Arthroscopy Shoulder, Total Hip Replacement Other Surgeries: Yes: Cardiac Catheterization, Other Amputation: No Fractures: No - *Social History Educational Level: Completed GED/General Educational Development Smoking Status: Never smoker Tobacco Type: cigarettes Alcohol Intake: never *Occupational Status:: retired Housing: house Household Members: spouse, children *Travel in the last 8 weeks: None - Psychiatric History Expresses thoughts of harming self/others: None Suicide Plan Description: No Plan Family Hx:: No significant family history Review of Systems - Review of Systems Review of systems:: pertinent systems reviewed and negative unless documented below - Constitutional Reports chills, Reports fever(s), Denies anorexia, Denies body ache(s) - Eyes Denies blind spots, Denies blurry vision - ENT Denies abnormal hearing, Denies bleeding gums - *Cardiovascular Denies excessive sweating, Denies shortness of breath, Denies irregular heart rhythm - *Respiratory Denies change in phlegm color, Denies chest congestion, Denies cough - *Gastrointestinal Denies abdominal pain, Denies belching - *Genitourinary Reports difficulty urinating - *Musculoskeletal Denies abnormal walking, Denies joint pain - Integumentary/Breasts Denies acne, Denies hair loss - *Neurologic Denies abnormal walking, Denies abnormal hearing, Denies headache(s) - Endocrine Denies cold intolerance, Denies rapid, pounding, or irregular heartbeat - Hematologic/Lymphatic Denies easy bleeding Meds Home Medications Medication Instructions Recorded Confirmed Type Carvedilol [Carvedilol 25mg Tab] 12.5 mg PO BID 09/26/17 10/22/18 History Gabapentin [Gabapentin 300mg Cap] 300 mg PO HS 09/26/17 10/22/18 History Montelukast Sodium [Singulair 10mg 10 mg PO HS 09/26/17 10/22/18 History tablet] Pantoprazole Sodium [Protonix 40mg 40 mg PO DAILY 09/26/17 10/22/18 History tablet] Simvastatin 10 mg PO DAILY 09/26/17 10/22/18 History Aspirin [Aspirin 81mg chewable 81 mg PO DAILY 05/12/18 10/22/18 History tab] Escitalopram Oxalate 20 mg PO DAILY 05/12/18 10/22/18 History Levothyroxine Sodium 50 mcg PO DAILY 05/12/18 10/22/18 History [Levothyroxine 50mcg (0.05mg) Tab] Oxycodone HCl/Acetaminophen 1 each PO BIDP PRN 08/08/18 10/22/18 History [Percocet 7.5-325 mg Tablet] Potassium Chloride 20 meq PO DAILY 08/08/18 10/22/18 History Amlodipine Besylate 10 mg PO DAILY 09/20/18 10/22/18 History Finasteride [Proscar 5mg Tablet] 5 mg PO DAILY 09/20/18 10/22/18 History Losartan Potassium 100 mg PO DAILY 09/20/18 10/22/18 History Tamsulosin HCl [Flomax 0.4mg 0.4 mg PO DAILY 09/20/18 10/22/18 History capsule] Sulfamethoxazole/Trimethoprim 1 tab PO DAILY 10/22/18 10/22/18 History [Sulfamethoxazole-Tmp Ss Tablet] Allergies Allergy/AdvReac Type Severity Reaction Status Date / Time tolmetin [From TOLECTIN] Allergy Severe Anaphylaxis Verified 10/12/18 10:52 tetracycline [TETRACYCLINE] Allergy Intermediate Hives Verified 10/12/18 10:52 menthol [From BenGay] Allergy Mild Rash Verified 10/12/18 10:52 methyl salicylate Allergy Mild Rash Verified 10/12/18 10:52 [From BenGay] ramipril [From ALTACE] Allergy Mild Cough Verified 10/12/18 10:52 tramadol [From ULTRAM] Allergy Mild Nausea Verified 10/12/18 10:52 Exam Vital signs and Labs for Last 24 Hours: Temp Pulse Resp BP Pulse Ox 98.0 F 61 20 118/48 L 98 10/23/18 07:59 10/23/18 07:59 10/23/18 07:59 10/23/18 07:59 10/23/18 07:59 Laboratory Results - last 24 hr 10/22/18 12:25: Influenza Type A Ag Negative, Influenza Type B Ag Negative 10/22/18 12:45: WBC 12.8 H, RBC 4.28 L, Hgb 11.3 L, Hct 34.2 L, MCV 80.0, MCH 26.3 L, MCHC 32.9, RDW 15.0, Plt Count 180, MPV 7.3 L, Neut % (Auto) 89.0 H, Lymph % (Auto) 4.7 L, [place] % (Auto) 5.4, Eos % (Auto) 0.7, Baso % (Auto) 0.3, Neut # (Auto) 11.4 H, Lymph # (Auto) 0.6 L, [place] # (Auto) 0.7, Eos # (Auto) 0.1, Baso # (Auto) 0.0, Total Counted 100, Neutrophils % (Manual) 89 H, Lymphocytes % (Manual) 3 L, Atypical Lymphs % 2.0, Monocytes % (Manual) 6, Platelet Estimate Normal, RBC Morphology Normal 10/22/18 12:45: Sodium 136, Potassium 3.9, Chloride 98, Carbon Dioxide 28, Anion Gap 13.9, BUN 19 H, Creatinine 1.62 H, Estimated Creat Clear 72, Estimated GFR 42 L, Est GFR ( Amer) 51 L, Glucose 119 H, Calcium 9.2, Total Bilirubin 0.7, AST 17, ALT 20, Alkaline Phosphatase 86, Total Protein 7.3, Albumin 3.5, Globulin 3.8 H, Albumin/Globulin Ratio 0.9 L 10/22/18 12:45: Lactate 1.9 10/22/18 13:05: Urine Color Yellow, Urine Appearance Cloudy, Urine pH 7.0, Ur Specific [place] 1.010, Urine Protein Negative, Urine Glucose (UA) Negative, Urine Ketones Negative, Urine Blood 1+, Urine Nitrate Positive, Urine Bilirubin Negative, Urine Urobilinogen 0.2, Ur Leukocyte Esterase 2+ A, Urine WBC 20-50, Ur Squamous Epith Cells 3-5, Urine Bacteria 4+ I & O for Last 24 hours: Intake & Output 10/20/18 10/21/18 10/22/18 10/23/18 11:59 11:59 11:59 11:59 Intake Total 2099 / 2100 Output Total 200 / 200 Balance 1900 / 1900 Weight 269 lb 1 oz Microbiology Reports for the Last 24 Hours: Microbiology 10/22/18 13:05 Urine,Catheterized Urine Culture - Preliminary Gram Negative Rods Narrative: Patient is pleasant talkative, oriented x3. No rashes. ENT exam clear. Oropharynx clear, JVD. Lungs are clear bilaterally. Heart rate regular with previously noted holosystolic murmur. Abdomen soft and nontender. No edema or clubbing. Globally weak but moves extremities well and no notable neurologic deficits except for prior defects from his stroke. Assessment and Plan (1) UTI (urinary tract infection) Current visit: Yes Status: Acute Qualifiers: Urinary tract infection type: site unspecified Hematuria presence: without hematuria Qualified Code(s): N39.0 - Urinary tract infection, site not specified Category: Medical Code(s): N39.0 - Urinary tract infection, site not specified Given history of UTI status and evidence of bladder outlet obstruction we will await culture to assess adequate therapy. Has appointment with urology for surgical mention near the end of this month. (2) History of depression Current visit: No Status: Acute Category: Medical Code(s): Z86.59 - Personal history of other mental and behavioral disorders On medication, complicates care. (3) Morbid obesity Current visit: No Status: Acute Category: Medical Code(s): E66.01 - Morbid (severe) obesity due to excess calories Stable. Complicates care
[2018-10-23 08:37] LABS: Basophils # 0.1 K/mm3 (0-0.2); Basophils % 0.6 % (0.1-2.0); Eosinophils # 0.2 K/mm3 (0.0-0.4); Eosinophils % 2.4 % (0.1-12.0); Hematocrit 32.1 % (42.0-52.0); Hemoglobin 10.5 g/dL (14.1-18.0); Lymphocytes # 1.7 K/mm3 (0.7-4.5); Lymphocytes % 17.7 % (10-50); Mean Corpuscular HGB Conc 32.7 g/dL (31.8-35.4); Mean Corpuscular Hemoglobin 26.4 pg (27.0-31.2); Mean Corpuscular Volume 80.8 fl (80-94); Mean Platelet Volume 7.3 fl (7.4-10.4); Monocytes # 0.6 K/mm3 (0.1-1.0); Monocytes % 6.3 % (1.7-9.3); Neutrophils % 73.1 % (37.0-80.0); Platelet Count 168 K/mm3 (142-424); Red Blood Count 3.97 M/mm3 (4.60-6.20); White Blood Count 9.6 K/mm3 (4.8-10.8)
[2018-10-23 08:45] LABS: Anion Gap 11.8 mEq/L (5-15); Calcium 8.3 mg/dL (8.5-10.1); Potassium 3.8 mmoL/L (3.5-5.1)
[2018-10-24 06:50] LABS: Basophils # 0.1 K/mm3 (0-0.2); Basophils % 0.8 % (0.1-2.0); Eosinophils # 0.3 K/mm3 (0.0-0.4); Hematocrit 33.2 % (42.0-52.0); Hemoglobin 10.6 g/dL (14.1-18.0); Lymphocytes # 1.9 K/mm3 (0.7-4.5); Lymphocytes % 24.5 % (10-50); Mean Corpuscular Hemoglobin 25.8 pg (27.0-31.2); Mean Corpuscular Volume 80.7 fl (80-94); Mean Platelet Volume 7.3 fl (7.4-10.4); Monocytes # 0.4 K/mm3 (0.1-1.0); Monocytes % 5.6 % (1.7-9.3); Neutrophils # 5.1 K/mm3 (1.8-7.8); Neutrophils % 65.2 % (37.0-80.0); Platelet Count 159 K/mm3 (142-424); Red Blood Count 4.11 M/mm3 (4.60-6.20); Red Cell Distribution Width 15.1 % (11.5-17.5); White Blood Count 7.9 K/mm3 (4.8-10.8)
[2018-10-24 06:56] LABS: Anion Gap 11.9 mEq/L (5-15); Calcium 8.8 mg/dL (8.5-10.1); Potassium 3.9 mmoL/L (3.5-5.1)
--- NOTE | 2018-10-24 07:53 | Discharge Summary ---
General - General Admission date:: 10/22/18 Discharge date: 10/24/18 HPI HPI: 73-year-old white male with recent history of stroke disease that has left him with bladder outlet obstruction/dysfunction who undergoes self-catheterization procedure 3 times daily at home who has had a recent urinary tract infection who came to the emergency department with fever and chills and was found to have evidence of urinary tract infection. Given his repetitive instrumentation and high risk of resistant organism admitted to hospital for IV antibiotics. This morning he feels better. Denies respiratory symptoms. Hospital Course Hospital Course: Mr. Gamino was admitted for urinary tract infection associated with his daily and out cathing. Initially treated with ceftriaxone. Transitioned to ertapenem based on previous culture and sensitivities. Urine culture returned with ESBL E. coli. Patient clinically improved. Remained afebrile during hospitalization. Tolerating regular diet. Plan to complete course of IV ertapenem as outpatient. PICC ordered today as patient is a stick with difficulty getting IVs, additionally has a phobia of needles and would prefer not to get IM injections daily for the next week. Plan to return to outpatient infusion for daily ertapenem to complete a 10-day course. Last dose of antibiotic scheduled for 11/01/18. Patient otherwise stable. No complaints. Medically stable for discharge home. Objective Vital signs: Temp Pulse Resp BP Pulse Ox 97.4 F L 77 20 160/70 H 96 10/24/18 04:00 10/24/18 04:00 10/24/18 04:00 10/24/18 04:00 10/24/18 04:00 Narrative: Patient is pleasant talkative, oriented x3. No acute distress in room air No rashes. ENT exam clear. Oropharynx clear, no JVD. Lungs are clear bilaterally. Heart rate regular with previously noted holosystolic murmur. Abdomen soft and nontender. No edema or clubbing. Globally weak but moves extremities well and no notable neurologic deficits except for prior defects from his stroke. Results Labs on day of discharge: Labs from last 24 hours 10/24/18 10/24/18 10/23/18 06:20 06:20 08:10 WBC 7.9 RBC 4.11 L Hgb 10.6 L Hct 33.2 L MCV 80.7 MCH 25.8 L MCHC 32.0 RDW 15.1 Plt Count 159 MPV 7.3 L Neut % (Auto) 65.2 Lymph % (Auto) 24.5 [place] % (Auto) 5.6 Eos % (Auto) 4.0 Baso % (Auto) 0.8 Neut # (Auto) 5.1 Lymph # (Auto) 1.9 [place] # (Auto) 0.4 Eos # (Auto) 0.3 Baso # (Auto) 0.1 Sodium 137 135 L Potassium 3.9 3.8 Chloride 101 98 Carbon Dioxide 28 29 Anion Gap 11.9 11.8 BUN 25 H 30 H D Creatinine 1.32 H D 1.82 H Estimated Creat Clear 85 61 Estimated GFR 53 L 37 L Est GFR ( Amer) 64 D 44 L Glucose 105 D 144 H D Calcium 8.8 8.3 L 10/23/18 08:10 WBC 9.6 RBC 3.97 L Hgb 10.5 L Hct 32.1 L MCV 80.8 MCH 26.4 L MCHC 32.7 RDW 15.0 Plt Count 168 MPV 7.3 L Neut % (Auto) 73.1 Lymph % (Auto) 17.7 [place] % (Auto) 6.3 Eos % (Auto) 2.4 Baso % (Auto) 0.6 Neut # (Auto) 7.0 Lymph # (Auto) 1.7 [place] # (Auto) 0.6 Eos # (Auto) 0.2 Baso # (Auto) 0.1 Sodium Potassium Chloride Carbon Dioxide Anion Gap BUN Creatinine Estimated Creat Clear Estimated GFR Est GFR ( Amer) Glucose Calcium DS: Diagnosis - Discharge Diagnosis (1) UTI (urinary tract infection) Status: Acute Problem details: Due to ESBL E. coli. Complete 10-day course of IV Invanz. (2) History of depression Status: Chronic (3) Morbid obesity Status: Chronic Discharge Plan - Patient Discharge Instructions Patient Instructions: DI for Urinary Tract Infection (UTI) - Follow up Plan Follow up with: Rajesh Crowder MD [Staff Physician] - Sterling Rodriguez MD [Primary Care Provider] - Disposition: Home, Self-Shelter Medications: Home Medications Medication Instructions Recorded Confirmed Type Carvedilol [Carvedilol 25mg Tab] 12.5 mg PO BID 09/26/17 10/22/18 History Gabapentin [Gabapentin 300mg Cap] 300 mg PO HS 09/26/17 10/22/18 History Montelukast Sodium [Singulair 10mg 10 mg PO HS 09/26/17 10/22/18 History tablet] Pantoprazole Sodium [Protonix 40mg 40 mg PO DAILY 09/26/17 10/22/18 History tablet] Simvastatin 10 mg PO DAILY 09/26/17 10/22/18 History Escitalopram Oxalate 20 mg PO DAILY 05/12/18 10/22/18 History Levothyroxine Sodium 50 mcg PO DAILY 05/12/18 10/22/18 History [Levothyroxine 50mcg (0.05mg) Tab] Oxycodone HCl/Acetaminophen 1 each PO BIDP PRN 08/08/18 10/22/18 History [Percocet 7.5-325 mg Tablet] Potassium Chloride 20 meq PO DAILY 08/08/18 10/22/18 History Amlodipine Besylate 10 mg PO DAILY 09/20/18 10/22/18 History Finasteride [Proscar 5mg Tablet] 5 mg PO DAILY 09/20/18 10/22/18 History Losartan Potassium 100 mg PO DAILY 09/20/18 10/22/18 History Tamsulosin HCl [Flomax 0.4mg 0.4 mg PO DAILY 09/20/18 10/22/18 History capsule] Sulfamethoxazole/Trimethoprim 1 tab PO DAILY 10/22/18 10/22/18 History [Sulfamethoxazole-Tmp Ss Tablet] Aspirin [Aspirin 81mg EC Tab] 81 mg PO DAILY 10/23/18 10/23/18 History Prescriptions/Medication Reconciliation: New Ertapenem Sodium [Invanz 1gm Vial] 1 gm IV 0900 vial Continue Montelukast Sodium [Singulair 10mg tablet] 10 mg PO HS Simvastatin 10 mg PO DAILY Pantoprazole Sodium [Protonix 40mg tablet] 40 mg PO DAILY Gabapentin [Gabapentin 300mg Cap] 300 mg PO HS Carvedilol [Carvedilol 25mg Tab] 12.5 mg PO BID Losartan Potassium 100 mg PO DAILY Sulfamethoxazole/Trimethoprim [Sulfamethoxazole-Tmp Ss Tablet] 1 tab PO DAILY Escitalopram Oxalate 20 mg PO DAILY Levothyroxine Sodium [Levothyroxine 50mcg (0.05mg) Tab] 50 mcg PO DAILY Potassium Chloride 20 meq PO DAILY Oxycodone HCl/Acetaminophen [Percocet 7.5-325 mg Tablet] 1 each PO BIDP PRN PRN Reason: pain Amlodipine Besylate 10 mg PO DAILY Finasteride [Proscar 5mg Tablet] 5 mg PO DAILY Tamsulosin HCl [Flomax 0.4mg capsule] 0.4 mg PO DAILY Aspirin [Aspirin 81mg EC Tab] 81 mg PO DAILY
== END 2018-10-24 13:30 | disposition home or self-care (01) ==
LOC: 2ND 12:14 → ER 12:14 → 2ND 15:09
PROVIDERS: ADMIT Emergency Medicine; ATTEND Internal Medicine Adolescent Medicine
DX: R50.9 Fever, unspecified; Z85.9 Personal history of malignant neoplasm, unspecified; Z16.39 Resistance to other specified antimicrobial drug; Z95.828 Presence of other vascular implants and grafts; I69.398 Other sequelae of cerebral infarction; Z79.82 Long term (current) use of aspirin; Z88.6 Allergy status to analgesic agent; Z88.8 Allergy status to other drugs, medicaments and biological substances; R11.10 Vomiting, unspecified; E66.01 Morbid (severe) obesity due to excess calories; I10 Essential (primary) hypertension; Z86.59 Personal history of other mental and behavioral disorders; N39.0 Urinary tract infection, site not specified; J44.9 Chronic obstructive pulmonary disease, unspecified; Z46.6 Encounter for fitting and adjustment of urinary device; Z79.899 Other long term (current) drug therapy; Z87.891 Personal history of nicotine dependence; N13.8 Other obstructive and reflux uropathy; Z87.39 Personal history of other diseases of the musculoskeletal system and connective tissue; E78.5 Hyperlipidemia, unspecified; B96.29 Other Escherichia coli [E. coli] as the cause of diseases classified elsewhere
CPT/HCPCS: 36415; 36569; 71010; 71045; 80048; 80053; 81001; 83605; 85007; 85025; 87040; 87086; 87088; 87186; 87275; 87276; 96374; 99285; C1751; G0378; J1335

== ENCOUNTER 2018-10-25 09:04 | Outpatient (CLI) | payer MEDICARE, OTHER, SELFPAY ==
[2018-10-25 09:17] VITALS: BP 121/67; PULSE 62; RESP 18; TEMP 36.6; O2SAT 98
[2018-10-25 09:55] VITALS: BP 120/61; PULSE 58; RESP 18; TEMP 36.6; O2SAT 97
== END 2018-10-25 09:55 | disposition home or self-care (01) ==
LOC: INF 09:04
PROVIDERS: Visit Provider Internal Medicine Adolescent Medicine
DX: N39.0 Urinary tract infection, site not specified (principal); B96.20 Unspecified Escherichia coli [E. coli] as the cause of diseases classified elsewhere
CPT/HCPCS: 96365; J1335

== ENCOUNTER 2018-10-26 08:57 | Outpatient (CLI) | payer MEDICARE, OTHER, SELFPAY ==
[2018-10-26 09:12] VITALS: BP 129/64; PULSE 67; RESP 18; TEMP 36.6; O2SAT 97
[2018-10-26 10:00] VITALS: BP 129/72; PULSE 68; RESP 18; TEMP 36.7; O2SAT 97
== END 2018-10-26 10:00 | disposition home or self-care (01) ==
LOC: INF 08:57
PROVIDERS: Visit Provider Internal Medicine Adolescent Medicine
DX: N39.0 Urinary tract infection, site not specified (principal); B96.20 Unspecified Escherichia coli [E. coli] as the cause of diseases classified elsewhere
CPT/HCPCS: 96365; J1335

== ENCOUNTER 2018-10-27 08:55 | Outpatient (CLI) | payer MEDICARE, OTHER, SELFPAY ==
[2018-10-27 09:15] VITALS: BP 136/57; PULSE 59; RESP 18; TEMP 36.3
[2018-10-27 09:45] VITALS: BP 128/62; PULSE 55; RESP 18
== END 2018-10-27 10:15 | disposition home or self-care (01) ==
LOC: INF 09:04
PROVIDERS: Visit Provider Internal Medicine Adolescent Medicine
DX: N39.0 Urinary tract infection, site not specified (principal); B96.20 Unspecified Escherichia coli [E. coli] as the cause of diseases classified elsewhere
CPT/HCPCS: 96365; J1335

== ENCOUNTER → 2018-10-28 08:53 | Outpatient (CLI) | payer MEDICARE, OTHER, SELFPAY ==
[2018-10-28 09:10] VITALS: BP 112/62; PULSE 68; RESP 16; TEMP 36.6; O2SAT 98
--- NOTE | 2018-10-28 09:54 | PC.NURSE ---
PATIENT REQUESTED PICC LINE DRESSING CHANGE BECAUSE THE DRESSING IS ROLLING UP
[2018-10-28 09:55] VITALS: BP 115/53; PULSE 60; RESP 14; TEMP 36.8; O2SAT 96
== END ==
PROVIDERS: PCP Internal Medicine Adolescent Medicine; Visit Provider Internal Medicine Adolescent Medicine
DX: N39.0 Urinary tract infection, site not specified (principal); B96.20 Unspecified Escherichia coli [E. coli] as the cause of diseases classified elsewhere
CPT/HCPCS: 96365; J1335

== ENCOUNTER → 2018-10-29 09:01 | Outpatient (CLI) | payer MEDICARE, OTHER, SELFPAY ==
[2018-10-29 09:15] VITALS: BP 112/61; PULSE 71; RESP 20; TEMP 36.5; O2SAT 96
[2018-10-29 09:59] VITALS: BP 101/50; PULSE 87; RESP 16; TEMP 36.8; O2SAT 97
== END ==
PROVIDERS: PCP Internal Medicine Adolescent Medicine; Visit Provider Internal Medicine Adolescent Medicine
DX: N39.0 Urinary tract infection, site not specified (principal); B96.20 Unspecified Escherichia coli [E. coli] as the cause of diseases classified elsewhere
CPT/HCPCS: 96365; J1335

== ENCOUNTER 2018-10-30 09:00 | Outpatient (CLI) | payer MEDICARE, OTHER, SELFPAY ==
[2018-10-30 09:15] VITALS: BP 115/62; RESP 18; TEMP 36.9; O2SAT 95
[2018-10-30 10:00] VITALS: BP 125/65; PULSE 50; RESP 20; TEMP 36.9; O2SAT 95
== END 2018-10-30 10:00 | disposition home or self-care (01) ==
LOC: INF 09:00
PROVIDERS: Visit Provider Internal Medicine Adolescent Medicine
DX: N39.0 Urinary tract infection, site not specified (principal); B96.20 Unspecified Escherichia coli [E. coli] as the cause of diseases classified elsewhere
CPT/HCPCS: 96365; J1335

== ENCOUNTER 2018-11-07 13:00 | Outpatient (CLI) | payer MEDICARE, OTHER, SELFPAY | END 2018-11-07 13:10 | disposition home or self-care (01) | LOC: INF 13:00 | PROVIDERS: Visit Provider Internal Medicine Adolescent Medicine | DX: Z45.2 Encounter for adjustment and management of vascular access device (principal) | CPT/HCPCS: 96523 ==

== ENCOUNTER 2018-11-09 13:34 | Outpatient (CLI) | payer MEDICARE, OTHER, SELFPAY | END 2018-11-09 13:45 | disposition home or self-care (01) | LOC: INF 13:34 | PROVIDERS: Visit Provider Internal Medicine Adolescent Medicine | DX: Z45.2 Encounter for adjustment and management of vascular access device (principal) | CPT/HCPCS: G0463 ==

== ENCOUNTER → 2019-03-15 14:11 | Outpatient (CLI) | payer MEDICARE, OTHER, SELFPAY | PROVIDERS: Visit Provider Urology | DX: N28.9 Disorder of kidney and ureter, unspecified (principal) | CPT/HCPCS: 87086; 87088; 87186 ==

== ENCOUNTER → 2019-04-26 10:00 | Observation (INO) ==
--- NOTE | 2019-04-25 11:26 | History & Physical Report ---
*Admission Date: 04/25/19 *Chief complaint: shortness of breath *History of present illness: 73 year old male with multiple chronic medical conditions including COPD was direct admitted from PCP office for COPD exacerbation failed outpatient treatment. Patient was seen in the office last week for shortness of air and cough. He was treated with Kenalog, rocephin and azithromycin. Today, he returned to office with worsening shortness of air and productive cough, sputum green. Tearful in office, states "I just can't take it anymore." Patient was admitted for IV antibodies and further evaluation. [facility] History I have reviewed the patient's past medical history: Yes Medical History: Reports:: BPH, Cancer, Chronic Obstructive Pulmonary Disease (COPD), Coronary Artery Disease, Gastroesophageal Reflux Disease(GERD), Hyperlipidemia, Hypertension Denies:: Diabetes Mellitus Type 1, Diabetes Mellitus Type 2, MRSA *Have you ever received a pneumonia vaccine?: Yes *Have you received a flu vaccine this season?: Yes Other Medical History: Reports: Anemia, Arthritis, Cataracts, Hypothyroidism Laterality Cases: Bilateral: Arthroscopy Hip, Arthroscopy Shoulder, Total Hip Replacement Other Surgeries: Yes: Cardiac Catheterization, Other Amputation: No Fractures: No - *Social History Educational Level: Completed GED/General Educational Development Smoking Status: Former smoker # Packs/Day (cigarettes): 1 Alcohol Intake: never Substance Use Type: denies use *Occupational Status:: retired Housing: house Household Members: spouse, children *Travel in the last 8 weeks: None Family Hx:: Asthma, Cancer, Coronary Artery Disease, Heart Attack, Hyperlipidemia, Hypertension, Stroke Review of Systems - Review of Systems Review of systems:: pertinent systems reviewed and negative unless documented below - Constitutional Reports fatigue, Reports malaise - ENT Reports sore throat - *Cardiovascular Reports leg swelling - *Respiratory Reports change in phlegm color, Reports chest congestion, Reports cough, Reports shortness of breath Meds Home Medications Medication Instructions Recorded Confirmed Type Carvedilol [Carvedilol 25mg Tab] 12.5 mg PO BID 09/26/17 03/15/19 History Gabapentin [Gabapentin 300mg Cap] 300 mg PO HS 09/26/17 03/15/19 History Montelukast Sodium [Singulair 10mg 10 mg PO HS 09/26/17 03/15/19 History tablet] Pantoprazole Sodium [Protonix 40mg 40 mg PO DAILY 09/26/17 03/15/19 History tablet] Simvastatin 10 mg PO DAILY 09/26/17 03/15/19 History Escitalopram Oxalate 20 mg PO DAILY 05/12/18 03/15/19 History Levothyroxine Sodium 50 mcg PO DAILY 05/12/18 03/15/19 History [Levothyroxine 50mcg (0.05mg) Tab] Oxycodone HCl/Acetaminophen 1 each PO BIDP PRN 08/08/18 03/15/19 History [Percocet 7.5-325 mg Tablet] Potassium Chloride 20 meq PO DAILY 08/08/18 03/15/19 History Amlodipine Besylate 10 mg PO DAILY 09/20/18 03/15/19 History Finasteride [Proscar 5mg Tablet] 5 mg PO DAILY 09/20/18 03/15/19 History Losartan Potassium 100 mg PO DAILY 09/20/18 03/15/19 History Tamsulosin HCl [Flomax 0.4mg 0.4 mg PO DAILY 09/20/18 03/15/19 History capsule] Sulfamethoxazole/Trimethoprim 1 tab PO DAILY 10/22/18 03/15/19 History [Sulfamethoxazole-Tmp Ss Tablet] Aspirin [Aspirin 81mg EC Tab] 81 mg PO DAILY 10/23/18 03/15/19 History Acetaminophen/Diphenhydramine 1 each PO HS 10/25/18 03/15/19 History [Tylenol Pm Ex-Strength Caplet] Cyanocobalamin (Vitamin B-12) 2,500 mcg PO DAILY 10/25/18 03/15/19 History [Vitamin B12 2.5mg Tab] Ergocalciferol (Vitamin D2) 2,000 unit PO DAILY 10/25/18 03/15/19 History [Vitamin D2] Furosemide [Lasix 40mg tab] 40 mg PO BID 10/25/18 03/15/19 History Ondansetron HCl [Zofran 4mg Tab] 4 mg PO Q4-6H 10/25/18 03/15/19 History Sennosides/Docusate Sodium 1 each PO DAILY PRN 10/25/18 03/15/19 History [Senna-S Tablet] Ertapenem Sodium [Invanz 1gm Vial] 1 gm IV 0900 10/26/18 03/15/19 History Allergies Allergy/AdvReac Type Severity Reaction Status Date / Time tolmetin [From TOLECTIN] Allergy Severe Anaphylaxis Verified 03/15/19 10:46 tetracycline [TETRACYCLINE] Allergy Intermediate Hives Verified 03/15/19 10:46 menthol [From BenGay] Allergy Mild Rash Verified 03/15/19 10:46 methyl salicylate Allergy Mild Rash Verified 03/15/19 10:46 [From BenGay] ramipril [From ALTACE] Allergy Mild Cough Verified 03/15/19 10:46 tramadol [From ULTRAM] Allergy Mild Nausea Verified 03/15/19 10:46 Exam Vital signs and Labs for Last 24 Hours: Temp Pulse Resp BP Pulse Ox 98.1 F 43 L 20 157/67 H 97 04/25/19 10:13 04/25/19 10:13 04/25/19 10:13 04/25/19 10:13 04/25/19 10:13 I & O for Last 24 hours: Intake & Output 04/22/19 04/23/19 04/24/19 04/25/19 11:59 11:59 11:59 11:59 Weight 279 lb Narrative: Alert and oriented x3. Rate and rhythm regular. + murmur. 1+ BLE edema. LS with scattered wheeze and loose rhonchi left upper lobe. Abdomen soft and nontender. ENT exam unremarkable. No cervical LAD. No LVD Assessment and Plan (1) History of intracerebral hemorrhage without residual deficit Current visit: Yes Status: Chronic Category: Medical Code(s): Z86.79 - Personal history of other diseases of the circulatory system (2) COPD with exacerbation Current visit: No Status: Acute Category: Medical Code(s): J44.1 - Chronic obstructive pulmonary disease with (acute) exacerbation (3) Hypertension, essential Current visit: No Status: Chronic Category: Medical Code(s): I10 - Essential (primary) hypertension (4) Hypothyroidism (acquired) Current visit: No Status: Chronic Category: Medical Code(s): E03.9 - Hypothyroidism, unspecified (5) Chronic systolic CHF (congestive heart failure), NYHA class 2 Current visit: No Status: Chronic Category: Medical Code(s): I50.22 - Chronic systolic (congestive) heart failure (6) History of depression Current visit: No Status: Chronic Category: Medical Code(s): Z86.59 - Personal history of other mental and behavioral disorders (7) Morbid obesity Current visit: No Status: Chronic Category: Medical Code(s): E66.01 - Morbid (severe) obesity due to excess calories (8) Renal insufficiency Current visit: No Status: Chronic Category: Medical Code(s): N28.9 - Disorder of kidney and ureter, unspecified - Assessment and plan all Dx Assessment and Plan for all problems:: Patient admitted, placed on Levaquin with CAP protocol. Solu-medrol added. CXR, labs, and blood cultures pending. Noted to be bradycardiac on admission vitals, asymptomatic. Will obtain EKG.
[2019-04-25 13:04] LABS: Basophils % 0.3 % (0.1-2.0); Eosinophils # 0.1 K/mm3 (0.0-0.4); Eosinophils % 0.7 % (0.1-12.0); Hematocrit 35.7 % (42.0-52.0); Hemoglobin 11.3 g/dL (14.1-18.0); Lymphocytes # 2.4 K/mm3 (0.7-4.5); Lymphocytes % 15.7 % (10-50); Mean Corpuscular HGB Conc 31.7 g/dL (31.8-35.4); Mean Corpuscular Volume 82.7 fl (80-94); Mean Platelet Volume 7.1 fl (7.4-10.4); Monocytes % 6.5 % (1.7-9.3); Neutrophils # 11.9 K/mm3 (1.8-7.8); Neutrophils % 76.8 % (37.0-80.0); Platelet Count 239 K/mm3 (142-424); Red Blood Count 4.32 M/mm3 (4.60-6.20); Red Cell Distribution Width 15.4 % (11.5-17.5); White Blood Count 15.4 K/mm3 (4.8-10.8)
--- NOTE | 2019-04-25 13:04 | Electrocardiograph Report ---
APPROVED REPORT Exam: Resting ECG HR:56 bpm ECG Measurements Heart Rate 56 AXES VA 162 P 5 QRSd 86 QRS 22 QT 448 T31 QTc 432 <Conclusion> Sinus bradycardia Otherwise normal ECG Electronically signed by : Sterling Rodriguez, 04/25/2019 13:03:25
[2019-04-25 13:11] LABS: Coronavirus 229E Not Detected (NotDetected); Coronavirus NL63 Not Detected (NotDetected); Coronavirus OC43 Not Detected (NotDetected); Coronovirus HKU1,PCR Not Detected (NotDetected)
[2019-04-25 13:17] LABS: Albumin Level 3.5 gm/dL (3.4-5.0); Anion Gap 12.1 mEq/L (5-15); Bilirubin,Total 0.4 mg/dL (0.2-1.0); Calcium 8.9 mg/dL (8.5-10.1); Globulin 3.5 gm/dl (1.3-3.2)
[2019-04-25 13:34] LABS: Eosinophils % 1 % (0-3); Hypochromasia 1+; Lymphocytes % 13 % (10-50); Monocytes % 7 % (2-9); Neutrophils % 79 % (42-76); Total Cells Counted 100
--- NOTE | 2019-04-25 14:50 | Pharmacy Consult Notes ---
[facility] Pharmacy VTE Monitoring - Patient Demographics Admission date: 04/25/19 Report Date: 04/25/19 Time: 14:50 Allergies/Adverse Reactions: Patient Allergies tolmetin [From TOLECTIN] Allergy (Severe, Verified 03/15/19 10:46) Anaphylaxis tetracycline [TETRACYCLINE] Allergy (Intermediate, Verified 03/15/19 10:46) Hives menthol [From BenGay] Allergy (Mild, Verified 03/15/19 10:46) Rash methyl salicylate [From BenGay] Allergy (Mild, Verified 03/15/19 10:46) Rash ramipril [From ALTACE] Allergy (Mild, Verified 03/15/19 10:46) Cough tramadol [From ULTRAM] Allergy (Mild, Verified 03/15/19 10:46) Nausea Height: 1.85 m Weight: 126.552 kg Patient Problems: Current Active Problems History of intracerebral hemorrhage without residual deficit (Chronic) - VTE Risk Labs: VTE Related Lab Results Hgb 11.3 g/dL (14.1-18.0) L 04/25/19 12:42 Hct 35.7 % (42.0-52.0) L 04/25/19 12:42 Plt Count 239 K/mm3 (142-424) 04/25/19 12:42 BUN 23 mg/dL (7-18) H 04/25/19 12:42 Creatinine 1.21 mg/dL (0.70-1.30) 04/25/19 12:42 Estimated Creat Clear 96 mL/min (50-200) 04/25/19 12:42 Clinical Trial Participant: No - Prophylaxis VTE Prophylaxis Ordered?: Yes Types of VTE Prophylaxis: TEDS Knee High
[2019-04-26 06:39] LABS: Hematocrit 37.9 % (42.0-52.0); Lymphocytes # 1.2 K/mm3 (0.7-4.5); Lymphocytes % 7.6 % (10-50); Mean Corpuscular HGB Conc 31.7 g/dL (31.8-35.4); Mean Corpuscular Volume 82.7 fl (80-94); Mean Platelet Volume 7.4 fl (7.4-10.4); Monocytes # 0.4 K/mm3 (0.1-1.0); Monocytes % 2.9 % (1.7-9.3); Neutrophils # 13.9 K/mm3 (1.8-7.8); Neutrophils % 89.5 % (37.0-80.0); Platelet Count 304 K/mm3 (142-424); Red Blood Count 4.58 M/mm3 (4.60-6.20); Red Cell Distribution Width 15.3 % (11.5-17.5); White Blood Count 15.5 K/mm3 (4.8-10.8)
[2019-04-26 06:41] LABS: Anion Gap 16.9 mEq/L (5-15); Calcium 9.2 mg/dL (8.5-10.1)
--- NOTE | 2019-04-26 07:50 | Discharge Summary ---
General - General Admission date:: 04/25/19 Discharge date: 04/26/19 HPI HPI: 73 year old male with multiple chronic medical conditions including COPD was direct admitted from PCP office for COPD exacerbation failed outpatient treatment. Patient was seen in the office last week for shortness of air and cough. He was treated with Kenalog, rocephin and azithromycin. Today, he returned to office with worsening shortness of air and productive cough, sputum green. Tearful in office, states "I just can't take it anymore." Patient was admitted for IV antibodies and further evaluation. Hospital Course Hospital Course: Patient was treated overnight with IV fluids and nebulizer treatments. He did very nicely. His coughing remained unchanged. PCR testing was positive for rhinovirus. Chest x-ray was clear. Plan will be to discharge patient with nebulizer treatments, cough medicine and Z-Filiberto for inflammatory chronic bronchitis exacerbation. Objective Vital signs: Temp Pulse Resp BP Pulse Ox 98.1 F 86 22 166/88 H 96 04/26/19 04:05 04/26/19 06:15 04/26/19 04:05 04/26/19 04:05 04/26/19 06:15 Narrative: Patient is pleasant, alert. Talkative. No JVD. Oropharynx clear. Lungs have good air movement, minimal rhonchi but cleared with a cough. Heart rate regular. Abdomen soft and nontender. No edema or clubbing. No edema, neurologically intact. Results Labs on day of discharge: Labs from last 24 hours 04/26/19 04/26/19 04/25/19 05:42 05:42 13:00 WBC 15.5 H RBC 4.58 L Hgb 12.0 L Hct 37.9 L MCV 82.7 MCH 26.2 L MCHC 31.7 L RDW 15.3 Plt Count 304 D MPV 7.4 Neut % (Auto) 89.5 H Lymph % (Auto) 7.6 L [place] % (Auto) 2.9 Eos % (Auto) 0.0 L Baso % (Auto) 0.0 L Neut # (Auto) 13.9 H Lymph # (Auto) 1.2 [place] # (Auto) 0.4 Eos # (Auto) 0.0 Baso # (Auto) 0.0 Total Counted Neutrophils % (Manual) Lymphocytes % (Manual) Monocytes % (Manual) Eosinophils % (Manual) Platelet Estimate Hypochromasia Sodium 135 L Potassium 3.9 Chloride 100 Carbon Dioxide 22 Anion Gap 16.9 H BUN 21 H Creatinine 1.21 Estimated Creat Clear 96 Estimated GFR 59 Est GFR ( Amer) 71 Glucose 153 H D Calcium 9.2 Total Bilirubin AST ALT Alkaline Phosphatase Total Protein Albumin Globulin Albumin/Globulin Ratio Chlamy pneumoniae PCR Not detected Adenovirus (PCR) Not detected B. pertussis DNA (PCR) Not detected Coronavirus OC43 (PCR) Not detected Coronavirus HKU1 (PCR) Not detected Coronavirus 229E (PCR) Not detected Coronavirus NL63 (PCR) Not detected Human Metapneumovir PCR Not detected Influenza A (H1) PCR Not detected Influ A (H1N1/09) PCR Not detected Influenza A (H3) PCR Not detected Influenza Type A (PCR) Not detected Influenza Type B (PCR) Not detected M. pneumoniae (PCR) Not detected Parainfluenza 1 (PCR) Not detected Parainfluenza 2 (PCR) Not detected Parainfluenza 3 (PCR) Not detected Parainfluenza 4 (PCR) Not detected RSV (PCR) Not detected Entero/Rhino (PCR) Detected A 04/25/19 04/25/19 12:42 12:42 WBC 15.4 H RBC 4.32 L Hgb 11.3 L Hct 35.7 L MCV 82.7 MCH 26.2 L MCHC 31.7 L RDW 15.4 Plt Count 239 MPV 7.1 L Neut % (Auto) 76.8 Lymph % (Auto) 15.7 [place] % (Auto) 6.5 Eos % (Auto) 0.7 Baso % (Auto) 0.3 Neut # (Auto) 11.9 H Lymph # (Auto) 2.4 [place] # (Auto) 1.0 Eos # (Auto) 0.1 Baso # (Auto) 0.0 Total Counted 100 Neutrophils % (Manual) 79 H Lymphocytes % (Manual) 13 Monocytes % (Manual) 7 Eosinophils % (Manual) 1 Platelet Estimate Normal Hypochromasia 1+ Sodium 138 Potassium 4.1 Chloride 103 Carbon Dioxide 27 Anion Gap 12.1 BUN 23 H Creatinine 1.21 Estimated Creat Clear 96 Estimated GFR 59 Est GFR ( Amer) 71 Glucose 83 Calcium 8.9 Total Bilirubin 0.4 AST 10 L ALT 23 Alkaline Phosphatase 83 Total Protein 7.0 Albumin 3.5 Globulin 3.5 H Albumin/Globulin Ratio 1.0 L Chlamy pneumoniae PCR Adenovirus (PCR) B. pertussis DNA (PCR) Coronavirus OC43 (PCR) Coronavirus HKU1 (PCR) Coronavirus 229E (PCR) Coronavirus NL63 (PCR) Human Metapneumovir PCR Influenza A (H1) PCR Influ A (H1N1/09) PCR Influenza A (H3) PCR Influenza Type A (PCR) Influenza Type B (PCR) M. pneumoniae (PCR) Parainfluenza 1 (PCR) Parainfluenza 2 (PCR) Parainfluenza 3 (PCR) Parainfluenza 4 (PCR) RSV (PCR) Entero/Rhino (PCR) DS: Diagnosis - Discharge Diagnosis (1) History of intracerebral hemorrhage without residual deficit Status: Chronic (2) COPD with exacerbation Status: Acute (3) Hypertension, essential Status: Chronic (4) Hypothyroidism (acquired) Status: Chronic (5) Chronic systolic CHF (congestive heart failure), NYHA class 2 Status: Chronic (6) History of depression Status: Chronic (7) Morbid obesity Status: Chronic (8) Renal insufficiency Status: Chronic Discharge Plan - Patient Discharge Instructions ACTIVITY: Continue current activity DIET: continue same diet Patient Instructions: DI for Chronic Obstructive Pulmonary Disease - Follow up Plan Follow up with: Ronna Bush APRN [Nurse Practitioner] - 05/02/19 Disposition: Home, Self-Senior Living Medications: Home Medications Medication Instructions Recorded Confirmed Type Carvedilol [Carvedilol 25mg Tab] 12.5 mg PO BID 09/26/17 04/25/19 History Gabapentin [Gabapentin 300mg Cap] 300 mg PO HS 09/26/17 04/25/19 History Montelukast Sodium [Singulair 10mg 10 mg PO HS 09/26/17 04/25/19 History tablet] Pantoprazole Sodium [Protonix 40mg 40 mg PO DAILY 09/26/17 04/25/19 History tablet] Levothyroxine Sodium 50 mcg PO DAILY 05/12/18 04/25/19 History [Levothyroxine 50mcg (0.05mg) Tab] Oxycodone HCl/Acetaminophen 1 each PO BIDP PRN 08/08/18 04/25/19 History [Percocet 7.5-325 mg Tablet] Potassium Chloride 20 meq PO DAILY 08/08/18 04/25/19 History Amlodipine Besylate 10 mg PO DAILY 09/20/18 04/25/19 History Losartan Potassium 100 mg PO DAILY 09/20/18 04/25/19 History Aspirin [Aspirin 81mg EC Tab] 81 mg PO DAILY 10/23/18 04/25/19 History Acetaminophen/Diphenhydramine 1 each PO HS 10/25/18 04/25/19 History [Tylenol Pm Ex-Strength Caplet] Cyanocobalamin (Vitamin B-12) 2,500 mcg PO DAILY 10/25/18 04/25/19 History [Vitamin B12 2.5mg Tab] Ergocalciferol (Vitamin D2) 2,000 unit PO DAILY 10/25/18 04/25/19 History [Vitamin D2] Furosemide [Lasix 40mg tab] 40 mg PO BID 10/25/18 04/25/19 History Ondansetron HCl [Zofran 4mg Tab] 4 mg PO Q4-6H 10/25/18 04/25/19 History Sennosides/Docusate Sodium 1 each PO DAILY PRN 10/25/18 04/25/19 History [Senna-S Tablet] Albuterol Sulfate [Proair 2 puffs IH QIDP PRN 04/25/19 04/25/19 History Respiclick] Budesonide/Formoterol Fumarate 6 gm IH BID 04/25/19 04/25/19 History [Symbicort 160-4.5 Mcg Inhaler] Fluoxetine HCl [Prozac 20mg 20 mg PO DAILY 04/25/19 04/25/19 History Capsule] Simvastatin 20 mg PO HS 04/25/19 04/25/19 History Azithromycin [Zithromax 250mg 250 mg PO DIRECTED #6 tab 04/26/19 Rx tab] Ipratropium/Albuterol Sulfate 3 ml IH TID #90 neb 04/26/19 Rx [Duoneb 3mL neb] Promethazine/Dextromethorphan 5 ml PO Q6HP PRN #240 ml 04/26/19 Rx [Promethazine-Dm Syrup] Prescriptions/Medication Reconciliation: New Ipratropium/Albuterol Sulfate [Duoneb 3mL neb] 3 ml IH TID #90 neb Promethazine/Dextromethorphan [Promethazine-Dm Syrup] 5 ml PO Q6HP PRN #240 ml PRN Reason: Cough Azithromycin [Zithromax 250mg tab] 250 mg PO DIRECTED #6 tab Continued Montelukast Sodium [Singulair 10mg tablet] 10 mg PO HS Pantoprazole Sodium [Protonix 40mg tablet] 40 mg PO DAILY Gabapentin [Gabapentin 300mg Cap] 300 mg PO HS Carvedilol [Carvedilol 25mg Tab] 12.5 mg PO BID Losartan Potassium 100 mg PO DAILY Ergocalciferol (Vitamin D2) [Vitamin D2] 2,000 unit PO DAILY Ondansetron HCl [Zofran 4mg Tab] 4 mg PO Q4-6H Acetaminophen/Diphenhydramine [Tylenol Pm Ex-Strength Caplet] 1 each PO HS Sennosides/Docusate Sodium [Senna-S Tablet] 1 each PO DAILY PRN PRN Reason: Constipation Budesonide/Formoterol Fumarate [Symbicort 160-4.5 Mcg Inhaler] 6 gm IH BID Albuterol Sulfate [Proair Respiclick] 2 puffs IH QIDP PRN PRN Reason: Shortness Of Breath Fluoxetine HCl [Prozac 20mg Capsule] 20 mg PO DAILY Simvastatin 20 mg PO HS Levothyroxine Sodium [Levothyroxine 50mcg (0.05mg) Tab] 50 mcg PO DAILY Potassium Chloride 20 meq PO DAILY Oxycodone HCl/Acetaminophen [Percocet 7.5-325 mg Tablet] 1 each PO BIDP PRN PRN Reason: pain Amlodipine Besylate 10 mg PO DAILY Aspirin [Aspirin 81mg EC Tab] 81 mg PO DAILY Furosemide [Lasix 40mg tab] 40 mg PO BID Cyanocobalamin (Vitamin B-12) [Vitamin B12 2.5mg Tab] 2,500 mcg PO DAILY - Problem Reconciliation Problems Reviewed?: Yes
[2019-04-26 09:14] LABS: Lymphocytes % 8 % (10-50); Monocytes % 2 % (2-9); Neutrophils % 88 % (42-76); Total Cells Counted 100
== END | disposition home or self-care (01) ==
LOC: 2ND
PROVIDERS: ADMIT Internal Medicine Adolescent Medicine; ATTEND Internal Medicine Adolescent Medicine
DX: F32.9 Major depressive disorder, single episode, unspecified; E66.01 Morbid (severe) obesity due to excess calories; I13.0 Hypertensive heart and chronic kidney disease with heart failure and stage 1 through stage 4 chronic kidney disease, or unspecified chronic kidney disease; Z83.438 Family history of other disorder of lipoprotein metabolism and other lipidemia; R00.1 Bradycardia, unspecified; Z82.49 Family history of ischemic heart disease and other diseases of the circulatory system; Z86.73 Personal history of transient ischemic attack (TIA), and cerebral infarction without residual deficits; K21.9 Gastro-esophageal reflux disease without esophagitis; J44.1 Chronic obstructive pulmonary disease with (acute) exacerbation; I50.22 Chronic systolic (congestive) heart failure; Z79.82 Long term (current) use of aspirin; Z88.8 Allergy status to other drugs, medicaments and biological substances; Z82.3 Family history of stroke; N40.0 Benign prostatic hyperplasia without lower urinary tract symptoms; N18.9 Chronic kidney disease, unspecified; E78.5 Hyperlipidemia, unspecified; Z87.891 Personal history of nicotine dependence; Z79.890 Hormone replacement therapy; I25.10 Atherosclerotic heart disease of native coronary artery without angina pectoris; Z68.36 Body mass index [BMI] 36.0-36.9, adult; E03.9 Hypothyroidism, unspecified; Z79.899 Other long term (current) drug therapy; Z82.5 Family history of asthma and other chronic lower respiratory diseases; Z96.649 Presence of unspecified artificial hip joint
CPT/HCPCS: 36415; 71020; 71046; 80048; 80053; 85007; 85025; 87040; 87486; 87581; 87633; 87798; 93005; 94640; 94761; G0378; J1956

== ENCOUNTER → 2019-05-28 16:28 | Outpatient (CLI) | payer MEDICARE, OTHER, SELFPAY ==
--- NOTE | 2019-05-28 16:34 | XR_ITS ---
PROCEDURE: XR FOOT WT BEARING LT 3V CLINICAL INDICATION: pain, 5th toe pain COMPARISON: No exams were available for comparison FINDINGS: No fracture or dislocation. No lytic or blastic change. There is normal mineralization. Mild hyperostosis is present at the base of the 5th metatarsal. Other findings:None. IMPRESSION: No acute findings. Dictated by: Rodrigo Henson MD 05/28/2019 16:47 Electronically signed by Rodrigo Henson MD in [facility] 05/28/2019 16:47
== END ==
PROVIDERS: PCP Internal Medicine Adolescent Medicine; Visit Provider Podiatrist
DX: M79.672 Pain in left foot (principal)
CPT/HCPCS: 73630

== ENCOUNTER → 2020-01-14 09:09 | Outpatient (CLI) | payer MEDICARE, OTHER, SELFPAY ==
--- NOTE | 2020-01-14 09:20 | XR_ITS ---
PROCEDURE: XR SHOULDER LT MIN 2V CLINICAL INDICATION: left shoulder pauin COMPARISON: XR SHOULDER LT MIN 2V from 11/30/2019 FINDINGS: [id number] osteoarthritis of the glenohumeral joint. Mild osteoarthritis of the acromioclavicular joint. No acute fracture or dislocation. There is some sclerosis of the greater tubercle region which may be seen with rotator cuff disease. There is mild subacromial stenosis. IMPRESSION: Mild degenerative changes. No significant change Dictated by: Rodrigo Henson MD 01/14/2020 09:47 Electronically signed by Rodrigo Henson MD in [facility] 01/14/2020 09:47
== END ==
PROVIDERS: PCP Internal Medicine Adolescent Medicine; Visit Provider Orthopaedic Surgery
DX: M25.512 Pain in left shoulder (principal)
CPT/HCPCS: 73030

== ENCOUNTER → 2020-01-28 09:00 | Outpatient (CLI) | payer MEDICARE, OTHER, SELFPAY ==
[2020-01-28 11:36] LABS: Coronavirus 19 IgG Antibody Negative (Negative); Coronavirus 19 IgM Antibody Negative (Negative)
== END ==
PROVIDERS: Visit Provider Ophthalmology
DX: Z01.818 Encounter for other preprocedural examination (principal)
CPT/HCPCS: 36415; 86328

== ENCOUNTER 2020-01-29 06:21 | Day surgery (SDC) | payer MEDICARE, OTHER, SELFPAY ==
--- NOTE | 2020-01-23 10:27 | SUR.PREOP ---
01/23/2020 @ 1030--PHONE CALL MADE TO PATIENT. PATIENT UNDERSTANDS THAT LAB WORK AND COVID TESTING NEEDS TO BE COMPLETED @ 0900 ON 01/28/2020. PATIENT UNDERSTANDS IF LAB WORK AND COVID-19 TESTS ARE NOT COMPLETED BY 12PM ON THAT DATE, THE SURGERY SCHEDULED WILL BE CANCELLED AND RESCHEDULED FOR ANOTHER TIME.
[2020-01-24 12:57] VITALS: BMI 37.4
[2020-01-29] VITALS (7 sets, daily range): BP systolic 155–182; BP diastolic 78–86; PULSE 67–90; RESP 18–20; TEMP 36.4–36.8; O2SAT 97–99
== END 2020-01-29 08:19 | disposition home or self-care (01) ==
LOC: OR 06:24
PROVIDERS: PCP Internal Medicine Adolescent Medicine; Visit Provider Ophthalmology
DX: H26.20 Unspecified complicated cataract (principal); H25.813 Combined forms of age-related cataract, bilateral; I11.9 Hypertensive heart disease without heart failure; Z86.73 Personal history of transient ischemic attack (TIA), and cerebral infarction without residual deficits; Z96.649 Presence of unspecified artificial hip joint; Z96.659 Presence of unspecified artificial knee joint; Z87.438 Personal history of other diseases of male genital organs; Z88.1 Allergy status to other antibiotic agents; Z88.8 Allergy status to other drugs, medicaments and biological substances; Z79.82 Long term (current) use of aspirin; Z79.51 Long term (current) use of inhaled steroids; Z79.899 Other long term (current) drug therapy
CPT/HCPCS: 66982; V2632

== ENCOUNTER → 2020-02-11 10:48 | Outpatient (CLI) | payer MEDICARE, OTHER, SELFPAY ==
[2020-02-11 15:23] LABS: Coronavirus 19 IgG Antibody Negative (Negative); Coronavirus 19 IgM Antibody Negative (Negative)
== END ==
PROVIDERS: Visit Provider Ophthalmology
DX: Z01.818 Encounter for other preprocedural examination (principal)
CPT/HCPCS: 36415; 86328

== ENCOUNTER 2020-02-12 06:14 | Day surgery (SDC) | payer MEDICARE, OTHER, SELFPAY ==
[2020-02-06 09:43] VITALS: BMI 36.9
--- NOTE | 2020-02-08 09:02 | SUR.PREOP ---
02/08/2020 @ 0900--PHONE CALL MADE TO PATIENT. PATIENT UNDERSTANDS THAT LAB WORK AND COVID TESTING NEEDS TO BE COMPLETED 8-12 ON 02/11/2020. PATIENT UNDERSTANDS IF LAB WORK AND COVID-19 TESTS ARE NOT COMPLETED BY 12PM ON THAT DATE, THE SURGERY SCHEDULED WILL BE CANCELLED AND RESCHEDULED FOR ANOTHER TIME.
[2020-02-12 07:09] VITALS: BP 118/57; PULSE 59; RESP 18; TEMP 36.6; O2SAT 94
[2020-02-12 08:06] VITALS: BP 190/81; PULSE 57; RESP 20; O2SAT 99
[2020-02-12 08:11] VITALS: BP 171/70; PULSE 56; RESP 20; O2SAT 100
[2020-02-12 08:16] VITALS: BP 156/74; PULSE 55; RESP 22; O2SAT 100
[2020-02-12 08:21] VITALS: BP 166/72; PULSE 56; RESP 22; O2SAT 100
[2020-02-12 08:25] VITALS: BP 153/70; PULSE 61; RESP 18; TEMP 36.6; O2SAT 99
== END 2020-02-12 08:40 | disposition home or self-care (01) ==
LOC: OR 06:16
PROVIDERS: PCP Internal Medicine Adolescent Medicine; Visit Provider Ophthalmology
DX: H26.9 Unspecified cataract (principal); H53.8 Other visual disturbances; I11.9 Hypertensive heart disease without heart failure; Z86.73 Personal history of transient ischemic attack (TIA), and cerebral infarction without residual deficits; Z96.649 Presence of unspecified artificial hip joint; Z96.659 Presence of unspecified artificial knee joint; Z79.899 Other long term (current) drug therapy; Z79.82 Long term (current) use of aspirin
CPT/HCPCS: 66984; V2632

== ENCOUNTER → 2020-03-03 14:59 | Outpatient (CLI) | payer MEDICARE, OTHER, SELFPAY ==
[2020-03-03 15:22] LABS: Basophils # 0.1 K/mm3 (0-0.2); Eosinophils # 0.4 K/mm3 (0.0-0.4); Eosinophils % 3.4 % (0.1-12.0); Hematocrit 36.2 % (42.0-52.0); Hemoglobin 12.5 g/dL (14.1-18.0); Lymphocytes # 2.3 K/mm3 (0.7-4.5); Lymphocytes % 19.6 % (10-50); Mean Corpuscular HGB Conc 34.7 g/dL (31.8-35.4); Mean Corpuscular Hemoglobin 27.5 pg (27.0-31.2); Mean Corpuscular Volume 79.4 fl (80-94); Mean Platelet Volume 7.6 fl (7.4-10.4); Monocytes # 0.7 K/mm3 (0.1-1.0); Monocytes % 6.2 % (1.7-9.3); Neutrophils # 8.1 K/mm3 (1.8-7.8); Neutrophils % 69.7 % (37.0-80.0); Platelet Count 249 K/mm3 (142-424); Red Blood Count 4.55 M/mm3 (4.60-6.20); White Blood Count 11.6 K/mm3 (4.8-10.8)
[2020-03-03 16:29] LABS: Chloride 104 mmol/L (98-107); Potassium 3.6 mmoL/L (3.5-5.1); Sodium 135 mmol/L (136-145)
[2020-03-03 16:31] LABS: Alanine Aminotransferase 15 U/L (12-78); Aspartate Amino Transferase 18 U/L (17-59); Blood Urea Nitrogen 17 mg/dl (9-20); Estimated Glomerular Filt Rate 59 ml/min (>60); GFR (African American) 71 ML/MIN (>60)
[2020-03-03 16:32] LABS: Albumin Level 4.1 g/dl (3.5-5.0); Albumin/Globulin Ratio 1.5 (1.1-1.8); Alkaline Phosphatase 76 U/L (38-126); Anion Gap 9.6 mEq/L (5-15); Bilirubin,Total 0.6 mg/dl (0.2-1.3); Calcium 9.4 mg/dl (8.4-10.2); Carbon Dioxide 25 mmol/L (22.0-30.0); Globulin 2.7 g/dL (1.3-3.2); Glucose 100 mg/dl (74-100); Magnesium 1.8 mg/dl (1.6-2.3); Total Protein,Serum 6.8 g/dl (6.3-8.2)
[2020-03-03 16:52] LABS: Triiodothryronine (T3) Uptake 36 % (23.5-40.5)
[2020-03-03 16:53] LABS: Free Thyroxine Index 4.1 ug/dL (5.93-13.13); T4 (Thyroxine) 11.5 ug/dl (5.53-11.0)
[2020-03-03 17:06] LABS: Thyroid Stimulating Hormone 2.31 uIU/mL (0.465-4.68)
[2020-03-05 11:39] LABS: Vitamin B12 >2000 pg/mL (232-1245)
== END ==
PROVIDERS: Visit Provider Internal Medicine Adolescent Medicine
DX: R55 Syncope and collapse (principal); I25.10 Atherosclerotic heart disease of native coronary artery without angina pectoris; E78.5 Hyperlipidemia, unspecified
CPT/HCPCS: 36415; 80053; 82607; 83735; 84436; 84443; 84479; 85025; 93225; 93226

== ENCOUNTER → 2020-03-12 07:47 | Outpatient (CLI) | payer MEDICARE, OTHER, SELFPAY ==
--- NOTE | 2020-03-12 07:53 | MR_ITS ---
PROCEDURE: MR HEAD/BRAIN WO CON CLINICAL INDICATION: ATAXIA Dizziness and falling frequently. Unstable gait, frontal headache, 3months hx of stroke in 2018, prior CT 08-08-18 COMPARISON: HEADWO CT head/brain wo con from 08/08/2018 TECHNIQUE: Routine multiplanar multi echo sequences are performed without gadolinium enhancement. FINDINGS: No midline shift, mass effect, intracranial hemorrhage, or hydrocephalus is evident. There is a sánchez cisterna magnum as a normal variant. The cerebellopontine angles have an unremarkable appearance. No evidence of acute infarction. Nonspecific increased periventricular and subcortical T2 white matter hyperintensities noted and may be due to ischemic gliotic change from microvascular disease. Small cystic areas are present in the [place] and may be due to old small lacunar infarctions versus perivascular dilated spaces. Prominent perivascular dilated spaces are present within the basal ganglia with an old lacunar infarction of the left basal ganglia and external capsule with cystic changes. The pituitary, optic chiasm, and corpus callosum have an unremarkable appearance. No mastoid effusion or sinus air-fluid level. There is mucosal thickening along the floor of both maxillary sinuses. IMPRESSION: 1. No acute intracranial findings. 2. Atrophy with chronic periventricular ischemic gliotic change with old left-sided lacunar infarctions and possible old lacunar infarctions versus dilated perivascular spaces of the [place]. Prominent dilated perivascular spaces are present in the basal ganglia. 3. Bilateral maxillary sinus disease Dictated by: Rodrigo Henson MD 03/13/2020 12:41 Electronically signed by Rodrigo Henson MD in [facility] 03/13/2020 12:41
== END ==
PROVIDERS: PCP Internal Medicine Adolescent Medicine; Visit Provider Internal Medicine Adolescent Medicine
DX: R27.0 Ataxia, unspecified (principal)
CPT/HCPCS: 70551

== ENCOUNTER → 2020-03-25 12:19 | Outpatient (CLI) | payer MEDICARE, OTHER, SELFPAY ==
[2020-03-25 13:06] LABS: Blood Urea Nitrogen 17 mg/dl (9-20); Estimated Glomerular Filt Rate 65 ml/min (>60); GFR (African American) 79 ML/MIN (>60)
== END ==
PROVIDERS: Visit Provider Nurse Practitioner Family
DX: Z01.818 Encounter for other preprocedural examination (principal)
CPT/HCPCS: 36415; 82565; 84520

== ENCOUNTER → 2020-03-26 08:51 | Outpatient (CLI) | payer MEDICARE, OTHER, SELFPAY ==
--- NOTE | 2020-03-26 08:56 | CT_ITS ---
PROCEDURE: CT ABDOMEN PELVIS W CON CLINICAL INDICATION: LOWER ABD PAIN,IBS W/CONSTIPATION COMPARISON: No exams were available for comparison TECHNIQUE: IV Contrast: 75ML OPTIRAY 350 Oral Contrast None Axial images obtained with sagittal and coronal reformats. All CT scans at the facility use one or more dose reduction, viz: automated exposure control, ma/kV adjustment per patient size (including targeted exams where dose is matched to indication, i.e. head), or iterative reconstruction technique. FINDINGS: LOWER THORAX: There are coronary artery calcifications and/or stents noted. There is minimal thickening of the pericardium posteriorly. Abdomen and pelvis: The liver, gallbladder, spleen, adrenal glands, and pancreas has an unremarkable appearance. There is mild bilateral renal cortical scarring with bilateral renal cysts noted. No intestinal obstruction or free air. No evidence of appendicitis or diverticulitis. There are scattered colonic diverticula of the descending and sigmoid colon. Prominent artifact is present from bilateral hip prosthesis. There is calcific plaque at the ostium of the SMA and celiac artery. Cannot adequately determine the degree of stenosis based on this non angiographic exam. Postsurgical changes are present from prior fusion at L5-S1. IMPRESSION: 1. No acute abdominal or pelvic findings. 2. Colonic diverticulosis without diverticulitis. 3. Coronary artery calcifications and/or stents 4. Atherosclerotic calcification at the ostium of the celiac and SMA Dictated by: Rodrigo Henson MD 03/27/2020 11:18 Electronically signed by Rodrigo Henson MD in [facility] 03/27/2020 11:18
== END ==
PROVIDERS: PCP Internal Medicine Adolescent Medicine; Visit Provider Nurse Practitioner Family
DX: R10.30 Lower abdominal pain, unspecified (principal); R11.2 Nausea with vomiting, unspecified; K58.1 Irritable bowel syndrome with constipation
CPT/HCPCS: 74177; Q9967

== ENCOUNTER → 2020-08-25 10:28 | Outpatient (CLI) | payer MEDICARE, OTHER, SELFPAY ==
--- NOTE | 2020-08-25 10:41 | MR_ITS ---
PROCEDURE: MR LUMBAR SPINE WO/W CON CLINICAL INDICATION: LUMBAGO WITH SCIATICA hx 2 back surgeries last surgery was in 2014. lbp. symtpoms xyrs. COMPARISON: CR CXR2V XR chest 2V from 05/12/2018 MR MR HEAD/BRAIN WO CON from 03/12/[address] ABDOMEN PELVIS W CON from 03/26/2020 TECHNIQUE: Standard multiplanar multiecho sequences are performed without contrast. 3-D MIP and myelographic images are also rendered and reviewed FINDINGS: There are no previous exams available for comparison. There is a transitional segment at the lumbosacral junction and is labeled as L5. Spinal cord ends at the T12-L1 level. The spinal canal is fairly prominent extending to the lower sacral region. T12-L1, L1-L2 have an unremarkable appearance. L2-L3: Mild facet hypertrophic change. L3-L4: Moderate left-sided facet hypertrophy with moderate left-sided foraminal narrowing. There is mild right foraminal narrowing as well. L4-5: Inter pedicular screws are present at L4 and L5 with moderate degree of artifact from the screws. L5-S1: Unremarkable. IMPRESSION: 1. Postsurgical changes at L4-5. 2. Moderate left-sided foraminal narrowing and mild right foraminal narrowing at L3-L4 from facet and ligamentum hypertrophic change 3. Transitional segment at the lumbosacral junction labeled as L5. Please correlate with lateral radiograph of any intervention is contemplated. Dictated by: Rodrigo Henson MD 08/27/2020 12:17 Rodrigo Henson MD in [facility] 08/27/2020 12:17
[2020-08-25 10:57] LABS: Blood Urea Nitrogen 21 mg/dl (9-20); Estimated Glomerular Filt Rate 42 ml/min (>60); GFR (African American) 51 ML/MIN (>60)
== END ==
PROVIDERS: PCP Internal Medicine Adolescent Medicine; Visit Provider Nurse Practitioner Family
DX: M54.42 Lumbago with sciatica, left side (principal)
CPT/HCPCS: 36415; 72158; 76376; 82565; 84520; A9576

== ENCOUNTER → 2020-09-18 12:48 | Outpatient (CLI) | payer MEDICARE, OTHER, SELFPAY ==
--- NOTE | 2020-09-18 12:52 | MR_ITS ---
PROCEDURE: MR CERVICAL SPINE WO CON CLINICAL INDICATION: CERVICALGIA STIFFNESS IN NECK. HEADACHE. NO PRIOR. COMPARISON: MR MR HEAD/BRAIN WO CON from 03/12/2020 TECHNIQUE: Standard multiplanar multiecho sequences are performed without contrast. 3-D MIP and myelographic images are also rendered and reviewed FINDINGS: There is straightening of the cervical lordosis. Prominent CSF signal intensity is present in the retro and infra cerebellar region and is consistent with a incidental sánchez cisterna magna. This did have a similar appearance on 03/12/2020 C2-C3: There is mild bulging disc with facet and ligamentum hypertrophy. There is mild left-sided foraminal narrowing in there is canal stenosis at 10 mm. C3-C4: Mild degenerative disc disease with canal stenosis at 9 mm and mild bilateral foraminal narrowing from facet hypertrophic change. C4-C5: Degenerative disc disease with minimal bulging disc with canal stenosis at 9 mm and with bilateral foraminal narrowing. Anterior osteophytes are present. There is some minimal anterior impingement upon the cord with minimal cord flattening anteriorly at C4-C5. C5-C6: Degenerative disc disease. There is a small right paracentral disc osteophyte complex. There is canal stenosis of 10 mm. There is right lateral recess narrowing and bilateral foraminal narrowing. C6-C7: Degenerative disc disease. Mild left-sided foraminal narrowing from uncovertebral and facet hypertrophy. C7-T1: Mild degenerative disc disease. IMPRESSION: Multilevel cervical spondylosis with canal stenosis and lateral recess and foraminal narrowing. Please see above for detailed description at each level. Dictated by: Rodrigo Henson MD 09/19/2020 11:38 Rodrigo Henson MD in [place] 09/19/2020 11:38
== END ==
PROVIDERS: PCP Internal Medicine Adolescent Medicine; Visit Provider Neurological Surgery
DX: M54.2 Cervicalgia (principal)
CPT/HCPCS: 72141; 76376

== ENCOUNTER → 2020-10-20 10:55 | Outpatient (POV) | payer MEDICARE, OTHER, SELFPAY ==
[2020-10-20 11:20] VITALS: BP 141/74; PULSE 77; RESP 18; TEMP 36.8; O2SAT 98; BMI 38.6
--- NOTE | 2020-10-20 11:56 | [facility].PMCON ---
Assessment and Plan (1) Postlaminectomy syndrome Status: Chronic Category: Medical Code(s): M96.1 - Postlaminectomy syndrome, not elsewhere classified (2) Back pain Status: Chronic Category: Medical Code(s): M54.9 - Dorsalgia, unspecified (3) Degenerative disc disease Status: Chronic Category: Medical - Assessment and plan all Dx Assessment and Plan for all problems:: Patient I had a long conversation about intrathecal therapy he would like to pursue this. He is not on any anticoagulation therapy. He is failed 6 months of conservative therapies including epidurals, facet joint injections, radiofrequency ablations, physical therapy and medications. Patient has had multiple surgeries with no pain relief. Patient is not on any narcotic medications at this time. We will set him up for a psychological evaluation to determine if he is a good candidate for this therapy. Dr. Jorgensen has reviewed this note and agrees with this plan of care. This note was dictated using voice recognition software and may contain errors or omissions HPI - Data of Consult Consult date: 10/20/20 Requesting Physician: Lyudmila Justin APRN Primary Care Provider: Sterling Rodriguez MD - Consult Narrative Reason for consult: Back pain History of present illness: Mr. Gamino is a 75 year old male who presents today for consultation regards his low back pain. Patient has had multiple surgeries by Dr. Machuca in the past. He has low back pain. He does not have a lot of radicular symptoms. Most of his pain is in his low back and gets worse with activity. He rates his pain today a 6 out of 10. Patient is now raising 3 young children. He is having difficulty with activities of daily life. Patient has had multiple injections including epidural injections, facet joint injections. He has had no long-term relief. He also had an RFA with no long-term relief. He has had physical therapy with no relief. He is failed over 6 months of conservative therapy including physical therapy, anti-inflammatories, medications. Patient does not tolerate oral medications well. CC: Lyudmila Justin APRN [facility] History I have reviewed the patient's past medical history: Yes Medical History: Reports:: BPH, Chronic Obstructive Pulmonary Disease (COPD), Coronary Artery Disease, Gastroesophageal Reflux Disease(GERD), Hyperlipidemia, Hypertension Denies:: Cancer, Diabetes Mellitus Type 1, Diabetes Mellitus Type 2, Internal Pacemaker, MRSA, Seizures *Have you ever received a pneumonia vaccine?: No *Have you received a flu vaccine this season?: No Other Medical History: Reports: Anemia, Arthritis, Cataracts, Hypothyroidism Laterality Cases: Bilateral: Arthroscopy Hip, Arthroscopy Shoulder, Total Hip Replacement Other Surgeries: Yes: Cardiac Catheterization, Colonoscopy, Coronary Stent, Hernia Repair, Other. No: Pacemaker Amputation: No Fractures: No - *Social History Smoking Status: Never smoker # Packs/Day (cigarettes): 1 Alcohol Intake: never Substance Use Type: denies use *Occupational Status:: retired Housing: house Household Members: other *Travel in the last 8 weeks: None Family Hx:: Unable to obtain Review of Systems - Review of Systems ROS General: no recent weight change, no fever, no sleep disturbances Respiratory: no cough, no shortness of air, no recurring pulmonary infections Cardiovascular/Peripheral Vascular: No chest pain, No palpitations, no edema, no shortness of breath. Gastrointestinal: no new onset incontinence, normal bowel movements reported Genitourinary: no new onset incontinence Musculoskeletal: Back pain, Psychiatric: normal mood/ affect Neurological: [denies new onset weakness in extremities], [denies new onset balance issues] Meds Home Medications Medication Instructions Recorded Confirmed Type Gabapentin [Gabapentin 300mg Cap] 300 mg PO HS 09/26/17 02/12/20 History Montelukast Sodium [Singulair 10mg 10 mg
== END ==
PROVIDERS: PCP Internal Medicine Adolescent Medicine; Visit Provider Clinical Nurse Specialist Family Health
DX: M96.1 Postlaminectomy syndrome, not elsewhere classified (principal); M54.9 Dorsalgia, unspecified
CPT/HCPCS: 99202; G0463

== ENCOUNTER 2020-11-17 20:22 | Inpatient (IN) | payer MEDICARE, OTHER, SELFPAY ==
--- NOTE | 2020-11-17 20:19 | ECG_ITS ---
APPROVED REPORT Exam: Resting ECG HR:84 bpm ECG Measurements Heart Rate 84 AXES MO 160 P 40 QRSd 72 QRS 22 QT 368 T 86 QTc 434 Conclusion Sinus rhythm with premature supraventricular complexes Low voltage QRS ST & T wave abnormality, consider lateral ischemia Abnormal ECG Electronically signed by : Sterling Rodriguez, 11/18/2020 19:36:48
[2020-11-17 20:23] VITALS: BP 156/111; PULSE 89; RESP 18; TEMP 36.8; O2SAT 99; BMI 37.6
[2020-11-17 20:27] VITALS: BMI 36.9
--- NOTE | 2020-11-17 20:46 | HMH.EDCP ---
ED Disposition Clinical Impression: Unstable angina pectoris, Obesity (BMI 30-39.9), Hypothyroidism (acquired) Disposition: Admitted As Inpatient Condition on Discharge: Serious - Critical Care Critical Care Time: No Attestation: On 11/17/20, the high probability of a clinically significant, sudden or life threatening deterioration of the following system(s) required my full and direct attention, intervention and personal management. The time I documented below is in addition to time spent performing reported procedures but includes the following listed in this critical care notation. Medical Decision Making - Medical Records Medical records reviewed: Yes: I reviewed the patient's medical records. - Jesus Inquiry Pt receiving controlled substance: No Vital Signs: 11/17/20 20:23 Temperature 98.2 F Temperature Source Oral Pulse Rate [Right Brachial] 89 Respiratory Rate 18 Blood Pressure [Right Arm] 156/111 H Blood Pressure Mean [Right Arm] 126 Blood Pressure Source [Right Arm] Automatic Cuff Blood Pressure Position [Right Arm] Sitting 02 Sat by Pulse Oximetry 99 Oxygen Delivery Method Room Air - Lab Data Lab results reviewed: Yes: I reviewed the patient's lab results. Lab Results 11/17/20 20:30: WBC 15.9 H, RBC 4.13 L, Hgb 10.8 L, Hct 34.1 L, MCV 82.6, MCH 26.3 L, MCHC 31.8, RDW 14.6, Plt Count 250, MPV 8.5, Neut % (Auto) 66.4, Lymph % (Auto) 18.5, [place] % (Auto) 7.3, Eos % (Auto) 7.0, Baso % (Auto) 0.6, Neut # (Auto) 10.6 H, Lymph # (Auto) 3.0, [place] # (Auto) 1.2 H, Eos # (Auto) 1.1 H, Baso # (Auto) 0.1, Total Counted 100, Neutrophils % (Manual) 64, Lymphocytes % (Manual) 26, Monocytes % (Manual) 1 L, Eosinophils % (Manual) 8 H, Basophils % (Manual) 1.0, Platelet Estimate Normal, Ovalocytes 1+ 11/17/20 20:30: Sodium 139, Potassium 3.8, Chloride 103, Carbon Dioxide 23, Anion Gap 16.8 H, BUN 19, Creatinine 1.10, Estimated Creat Clear 92, Estimated GFR 65, Est GFR ( Amer) 79, Glucose 142 H, Calcium 9.7, Troponin I 0.02, NT-Pro-B Natriuret Pep 753 H, TSH 4.50, Thyroxine (T4) 10.6 Result diagrams: 11/17/20 20:30 11/17/20 20:30 Orders (Tests/Meds): ED MEDICATIONS Generic Name Dose Route Start Last Admin Trade Name Freq PRN Reason Stop Dose Admin Nitroglycerin/Dextrose 250 mls @ 1.5 mls/hr 11/17/20 21:30 11/17/20 21:45 Nitroglycerin 50mg/250ml D5w IV 12/17/20 21:29 5 mcg/min .Q24H DA 1.5 mls/hr Administration Protocol 5 MCG/MIN Nitroglycerin 0.4 mg 11/17/20 20:45 Nitroglycerin 0.4mg Sl Tablet SL 12/17/20 20:44 Q5MINP PRN Chest Pain Sodium Chloride 8 ml 11/17/20 20:44 Sodium Chloride 0.9% 10ml Vial IV 12/17/20 20:43 NEEDED PRN dilute pepcid Discontinued Medications Generic Name Dose Route Start Last Admin Trade Name Freq PRN Reason Stop Dose Admin Famotidine 20 mg 11/17/20 20:44 11/17/20 20:52 Famotidine 20mg/2ml Vial IV 11/17/20 20:45 20 mg ONCE ONE Administration Metoclopramide HCl 10 mg 11/17/20 20:44 11/17/20 20:52 Metoclopramide Hcl 10mg/2ml Vial IVP 11/17/20 20:45 10 mg ONCE ONE Administration Metoprolol Tartrate 10 mg 11/17/20 21:27 11/17/20 21:30 Metoprolol Tartrate 5mg/5ml Vial IV 11/17/20 21:28 10 mg ONCE ONE Administration Morphine Sulfate 4 mg 11/17/20 20:44 11/17/20 20:52 Morphine 4mg/Ml Syringe IV 11/17/20 20:45 4 mg ONCE ONE Administration Nitroglycerin 1 gm 11/17/20 20:45 11/17/20 20:53 Nitroglycerin 1 Gm Ointment TD 11/17/20 20:46 1 gm ONCE ONE Administration Ondansetron HCl 4 mg 11/17/20 20:44 11/17/20 20:52 Ondansetron 4mg/2ml Vial IV 11/17/20 20:45 4 mg ONCE ONE Administration Ondansetron HCl 4 mg 11/17/20 20:45 11/17/20 20:52 Ondansetron 4mg/2ml Vial IV 11/17/20 20:46 4 mg ONCE ONE Administration ORDERS Category Date Time Status CT Chest w/PE protocol [CT angio chest] Stat Cat Scan 11/17/20 20:49 Ordered Chest XR --
--- NOTE | 2020-11-17 20:48 | XR_ITS ---
PROCEDURE: XR CHEST PORTABLE CLINICAL HISTORY: chest pain COMPARISON: CR [id number] XR chest portable from 10/22/2018 CR [id number] XR chest portable PICC plac from 10/24/2018 DX XR CHEST 2V from 04/25/2019 FINDINGS: The cardiomediastinal silhouette and pulmonary vascularity are within normal limits. The lungs are clear without infiltrates, suspicious nodules, or pleural effusions. Prior right humeral head replacement. Subchondral cyst left humeral head at 5 mm. IMPRESSION: No acute findings. Dictated by: Rodrigo Henson MD 11/18/2020 05:43 Rodrigo Henson MD in [place] 11/18/2020 05:43
[2020-11-17 20:57] LABS: Basophils # 0.1 K/mm3 (0-0.2); Basophils % 0.6 % (0.1-2.0); Eosinophils # 1.1 K/mm3 (0.0-0.4); Hematocrit 34.1 % (42.0-52.0); Hemoglobin 10.8 g/dL (14.1-18.0); Lymphocytes % 18.5 % (10-50); Mean Corpuscular HGB Conc 31.8 g/dL (31.8-35.4); Mean Corpuscular Hemoglobin 26.3 pg (27.0-31.2); Mean Corpuscular Volume 82.6 fl (80-94); Mean Platelet Volume 8.5 fl (7.4-10.4); Monocytes # 1.2 K/mm3 (0.1-1.0); Monocytes % 7.3 % (1.7-9.3); Neutrophils # 10.6 K/mm3 (1.8-7.8); Neutrophils % 66.4 % (37.0-80.0); Platelet Count 250 K/mm3 (142-424); Red Blood Count 4.13 M/mm3 (4.60-6.20); Red Cell Distribution Width 14.6 % (11.5-17.5); White Blood Count 15.9 K/mm3 (4.8-10.8)
--- NOTE | 2020-11-17 20:58 | ECG_ITS ---
APPROVED REPORT Exam: Resting ECG HR:88 bpm ECG Measurements Heart Rate 88 AXES MT 190 P 46 QRSd 78 QRS 33 QT 390 T 86 QTc 471 Conclusion Normal sinus rhythm with sinus arrhythmia Low voltage QRS Nonspecific ST and T wave abnormality Prolonged QT Abnormal ECG Electronically signed by : Sterling Rodriguez, 11/21/2020 11:44:19
[2020-11-17 21:01] LABS: MANUAL DIFFERENTIAL MANUAL DIFFERENTIAL (MANUAL DIFF)
[2020-11-17 21:11] LABS: Anion Gap 16.8 mEq/L (5-15); Blood Urea Nitrogen 19 mg/dl (9-20); Calcium 9.7 mg/dl (8.4-10.2); Carbon Dioxide 23 mmol/L (22.0-30.0); Chloride 103 mmol/L (98-107); Creatinine Clearance Estimated 92 mL/min (50-200); Estimated Glomerular Filt Rate 65 ml/min (>60); GFR (African American) 79 ML/MIN (>60); Glucose 142 mg/dl (74-100); Potassium 3.8 mmoL/L (3.5-5.1); Sodium 139 mmol/L (136-145)
[2020-11-17 21:26] LABS: NT Pro Brain Natriuretic Pep. 753 pg/mL (0-450); Troponin I 0.02 ng/ml (0.00-0.034)
[2020-11-17 21:31] LABS: T4 (Thyroxine) 10.6 ug/dl (5.53-11.0)
[2020-11-17 21:42] LABS: Eosinophils % 8 % (0-3); Lymphocytes % 26 % (10-50); Monocytes % 1 % (2-9); Neutrophils % 64 % (42-76); Ovalocytes 1+; Platelet Estimate Normal; Total Cells Counted 100
--- NOTE | 2020-11-17 22:15 | ECG_ITS ---
APPROVED REPORT Exam: Resting ECG HR:77 bpm ECG Measurements Heart Rate 77 AXES AK 184 P 41 QRSd 84 QRS 4 QT 420 T 51 QTc 475 Conclusion Normal sinus rhythm Low voltage QRS Borderline ECG Electronically signed by : Sterling Rodriguez, 11/18/2020 19:36:13
[2020-11-18] VITALS (34 sets, daily range): BP systolic 122–173; BP diastolic 49–95; PULSE 46–119; RESP 14–22; TEMP 36.3–36.9; O2SAT 91–97; BMI 38.2
--- NOTE | 2020-11-18 | IR_ITS ---
APPROVED REPORT Patient Location: Inpatient Middle School Coach: GUI Shin RT (R) PROCEDURES Right heart catheterization Selective coronary angiogram INDICATION Acute non-ST elevation myocardial infarction, Pulmonary hypertension, Congestive heart failure Informed consent was obtained prior to the procedure. COMPLICATIONS NONE Estimated Blood Loss: LESS THAN 10 ML TECHNIQUE One percent lidocaine used to anesthetize the right anterior aspect of the wrist. The right radial artery was accessed via the Seldinger technique. A 6 [place] sheath was placed in the right radial artery. 2.5 mg of verapamil, 800 mcg of nitroglycerin, 1mg Lidocaine and 5000 U Heparin were given through the arterial sheath. The trap catheter was also used to perform left heart catheterization, left ventriculogram and selective coronary angiogram. At the end of the procedure the sheath was removed good hemostasis was achieved using Traclet band, patient was transferred to the postop holding area in stable condition. ANGIOGRAPHIC RESULTS The left main artery Normal The left anterior descending artery Has proximal 10% stenoses with mid vessel long 30% stenoses. The first and second diagonal artery are both small to moderate in size with mild nonflow limiting 10% stenoses. A large first septal pharmacy salesperson has an ostial greater than 90% stenosis yet still has RADAH-3 flow which supplies the chronically occluded right coronary artery The circumflex artery Is a large probably codominant vessel with mild luminal irregularities in the proximal segment a widely patent stent in the large first obtuse marginal artery with excellent proximal distal transitioning. The terminal obtuse marginal artery is patent The right coronary artery Probably codominant and ostially occluded and fills via [id number] collaterals The FINNEY ventriculogram reveals Not performed The left ventricular end-diastolic pressure Not measured Right atrial pressure 30 mmHg Right ventricular pressure 70/30 mmHg Pulmonary artery pressure 70/50 mmHg Pulmonary occlusion pressure 50 mmHg Right atrial saturation 47% Pulmonary artery saturation 45% IMPRESSION Chronically occluded right coronary artery which fills via left to right collaterals Severe pulmonary hypertension all secondary to left-sided congestive heart failure Severe biventricular congestive heart failure most likely all secondary to left ventricular diastolic dysfunction PLAN 1. Medical management for coronary disease 2. Patient requires significant diuresis. Recommend giving IV Lasix until patient shows signs and symptoms of being intravascularly deplete such as an increase in creatinine. 3. Recommend sleep study 4. LDL less than 55 Electronically signed by : Luis Eduardo Wilson, 11/18/2020 11:03:37
--- NOTE | 2020-11-18 01:20 | PC.NURSE ---
patient up to floor via wheelchair.
[2020-11-18 03:10] LABS: Troponin I 0.89 ng/ml (0.00-0.034)
--- NOTE | 2020-11-18 05:03 | PC.NURSE ---
Patient has not slept since admission. He said he is much better than when first coming in the ED, but still does not feel good. Patient has not complained of chest pain (or any other pain) since admission. Nitro drip has stayed on 5 mcg/min most of the shift, but just increased to 10 mcg/min. Patient walked around unit and I followed behind with a wheelchair to be sure patient was safe. Patient has had 2 bowel movements since admission and has urinated in the toilet. Urinal in the patient's room and he has been asked to use it to be measured. Patient shows NSR with slight 1st degree AV block on telemetry. 2+ edema to bilateral lower extremities.
[2020-11-18 05:12] LABS: Microscopic, Urine URINE MICROSCOPIC (MICROSCOPIC)
[2020-11-18 05:24] LABS: Appearance,Urine CLEAR (Clear); Bilirubin,Urine Negative (Negative); Blood, Urine Negative (Negative); Color,Urine YELLOW (Yellow); Glucose,Urine (UA) Negative (Negative); Ketones,Urine Negative (Negative); Leukocyte Esterase,Urine 1+ (Negative); Nitrate,Urine Negative (Negative); Protein,Urine Negative (Negative); Urobilinogen,Urine 0.2 EU/dl (0.2)
--- NOTE | 2020-11-18 06:41 | PC.NURSE ---
Nitro gtt increased from 10 mcg/min to 15 mcg/min due to BP of 167/69.
--- NOTE | 2020-11-18 06:58 | HMH.HP ---
*Admission Date: 11/18/20 *Chief complaint: chest pain *History of present illness: Mr. Gamino is a 75-year-old gentleman who presented to the ER with approximately an hour of chest pain. Received nitro from his but had no resolution of his chest pain. Reports this pain actually worsened and he had onset of vomiting. On arrival to the ER he complained of palpitations, EKG reviewed with ST depressions. Patient was started on nitro drip and admitted to medicine for further management. Cardiology consult placed, plan for heart cath in the morning. On assessment today, patient's chest pain is improved. Continued nitro drip overnight. Denies any shortness of breath. States he is hungry and wanted to know when he is going to the Home Care Assistant. Otherwise hemodynamically stable, afebrile. [facility] History I have reviewed the patient's past medical history: Yes Medical History: Reports:: BPH, Cancer, Chronic Obstructive Pulmonary Disease (COPD), Coronary Artery Disease, Gastroesophageal Reflux Disease(GERD), Hyperlipidemia, Hypertension Denies:: Diabetes Mellitus Type 1, Diabetes Mellitus Type 2, Internal Pacemaker, MRSA, Seizures *Have you ever received a pneumonia vaccine?: Yes *Have you received a flu vaccine this season?: Yes Other Medical History: Reports: Anemia, Arthritis, Cataracts, Hypothyroidism, Thyroid Disease Laterality Cases: Bilateral: Arthroscopy Hip, Arthroscopy Shoulder, Total Hip Replacement Other Surgeries: Yes: Cardiac Catheterization, Colonoscopy, Coronary Stent, Hernia Repair, Other. No: Pacemaker Amputation: No Fractures: No - *Social History Last grade of school completed: High school graduate Smoking Status: Never smoker # Packs/Day (cigarettes): 1 Alcohol Intake: never Substance Use Type: denies use *Occupational Status:: retired Housing: house Household Members: spouse *Travel in the last 8 weeks: None Family Hx:: Unable to obtain Review of Systems - Review of Systems Review of systems:: pertinent systems reviewed and negative unless documented below (14 point review of systems performed, pertinent positives and negatives as per HPI) - *Neurologic Denies headache(s), Denies seizure-like activity Meds Home Medications Medication Instructions Recorded Confirmed Type Gabapentin [Gabapentin 300mg Cap] 300 mg PO HS 09/26/17 11/17/20 History Montelukast Sodium [Singulair 10mg 10 mg PO HS 09/26/17 11/17/20 History tablet] Pantoprazole Sodium [Protonix 40mg 40 mg PO DAILY 09/26/17 11/17/20 History tablet] Levothyroxine Sodium 50 mcg PO DAILY 05/12/18 11/17/20 History [Levothyroxine 50mcg (0.05mg) Tab] Oxycodone HCl/Acetaminophen 1 each PO BIDP PRN 08/08/18 11/17/20 History [Percocet 7.5-325 mg Tablet] Potassium Chloride 20 meq PO DAILY 08/08/18 11/17/20 History Amlodipine Besylate 10 mg PO DAILY 09/20/18 11/17/20 History Acetaminophen/Diphenhydramine 1 each PO HS 10/25/18 11/17/20 History [Tylenol Pm Ex-Strength Caplet] Furosemide [Lasix 40mg tablet] 40 mg PO BID 10/25/18 11/17/20 History Albuterol Sulfate [Proair 2 puffs IH QIDP PRN 04/25/19 11/17/20 History Respiclick] diclofenac sodium 1 % topical gel 4 g TOPICAL QID PRN #30 g 05/30/19 11/17/20 Rx carvedilol 12.5 mg tablet 12.5 mg PO DAILY tab 08/20/19 11/17/20 History famotidine 20 mg tablet 20 mg PO BID tab 08/20/19 11/17/20 History fluoxetine 40 mg capsule 40 mg PO DAILY cap 08/20/19 11/17/20 History aspirin 81 mg tablet,delayed 81 mg PO DAILY 12/10/19 11/17/20 History release montelukast 10 mg tablet 10 mg PO DAILY 12/10/19 11/17/20 History Ipratropium/Albuterol Sulfate 3 ml IH TID 01/24/20 11/17/20 History [Duoneb 3mL neb] Linaclotide [Linzess] 72 mcg PO DAILY 11/17/20 11/17/20 History Allergies Allergy/AdvReac Type Severity Reaction Status Date / Time tolmetin [From TOLECTIN] Allergy Severe Anaphylaxis Verified 02/12/20 07:04 tetracycline [TETRACYCLINE] Allergy Intermediate Hives Verified 02/12/20 07:04
[2020-11-18 07:35] LABS: Bacteria,Urine Trace /lpf; RBC,Urine Occasional #/hpf (0-3)
--- NOTE | 2020-11-18 08:00 | CA_ITS ---
APPROVED REPORT EXAM: Comprehensive 2D, Doppler, and color-flow Echocardiogram Assurance Auditor: Tasha Gamino RT(R) Ht: 6 ft 1 in Wt: 250lbs BSA: 2.37 BP: 156/111 mmHg Indications: CAD, GERD, stents, COPD, CP, obesity, hyperlipidemia, HTN Echo Enhancing Agent Indication: Endocardial border delineation Agent(s) / Amount(s) Used: Definity 2 cc 2D Dimensions LVOT 1.94 cm (M/F) 1.5-2.5 LVEF (Weir's) 55.60 % M: 52 - 72 LV Volume 144.70 mL M: 62 - 150 LV Volume Index 61.31 mL/m2 M: 34 - 74 M-Mode Dimensions RVDd 1.87 cm (0.9-2.6) LA Diam 3.54 cm (1.9-4.0) LVDd 6.12 cm (3.5-5.7) Ao Diam 2.98 cm (2.0-3.7) LVDs 4.97 cm (3.5-5.7) IVSd 0.85 cm (0.6-1.1) PWd 0.93 cm (0.6-1.1) EF (Teich) 38.10% FS 18.80% EDV (Teich) 188.30 mL ESV (Teich) 116.60 mL LV Diastology E Decel Time 190.00 (160-240 msec) E/A Ratio 1.6 MED E' 9.30 (< 7 cm/sec) E'/MED E' Ratio 16.45 (>14) LAT E' 11.30 (<10 cm/sec) E/LAT E' Ratio 13.54 (>14) Aortic Valve LVOT Max 132.00 (70-110 cm/s) LVOT VTI 31.04 cm AoV Peak Jovanni. 266.00 (50-130 cm/s) AO Peak GR. 28.40 mmHg AO Mean GR. 16.90 (<5 mmHg) AO VTI 62.21 (18-25 cm) ROHINI (VTI) 1.47 (2.5-4.5 cm2) Mitral Valve MV E Max Jovanni. 153.00 (40-130 cm/s) MV A Velocity 98.00 (40-130 cm/s) E/A Ratio 1.57 MV Decel. Time 190.00 (160-240 ms) MV PHT 56.00 ms Left Ventricle Technically difficult study because of the patient factors and poor acoustic windows. Left atrium is mildly enlarged, left ventricle is normal size, mild concentric left ventricular hypertrophy, visually estimated ejection fraction 55% with no regional wall motion abnormality, diastolic parameters are inconclusive. Right Ventricle Right atrium and right ventricle are grossly normal in size and contractility. Aortic Valve Aortic valve is thickened and calcified, mean gradient across aortic valve is 18 mmHg valve area is 1.3 cm, represents moderate aortic stenosis, there is no significant aortic insufficiency. Mitral Valve Mitral valve leaflets are minimally thickened, there is mild mitral regurgitation. Tricuspid Valve Tricuspid valve grossly normal, there is trace tricuspid regurgitation. Pulmonic Valve Pulmonic valve is poorly visualized. Great Vessels Aortic root is normal size. Pericardium No significant pericardial effusion noted. Conclusion 1. Mildly enlarged left atrium, normal left ventricular size, mild concentric left ventricular hypertrophy, visually estimated ejection fraction 55% with no regional wall motion abnormality, diastolic parameters are inconclusive. 2. Thickened and calcified aortic valve with mean gradient across valve of 18 mmHg, valve area is 1.3 cm, represents moderate aortic stenosis. There is no significant aortic insufficiency. 3. Mild mitral and trace tricuspid regurgitation. 4. No significant pericardial effusion noted. Electronically signed by : Rob Ramos, 11/18/2020 22:12:48
--- NOTE | 2020-11-18 08:12 | HMH.PHAVTE ---
[facility] Pharmacy VTE Monitoring - Patient Demographics Admission date: 11/18/20 Report Date: 11/18/20 Time: 08:12 Allergies/Adverse Reactions: Patient Allergies tolmetin [From TOLECTIN] Allergy (Severe, Verified 02/12/20 07:04) Anaphylaxis tetracycline [TETRACYCLINE] Allergy (Intermediate, Verified 02/12/20 07:04) Hives menthol [From BenGay] Allergy (Mild, Verified 02/12/20 07:04) Rash methyl salicylate [From BenGay] Allergy (Mild, Verified 02/12/20 07:04) Rash ramipril [From ALTACE] Allergy (Mild, Verified 02/12/20 07:04) Cough tramadol [From ULTRAM] Allergy (Mild, Verified 02/12/20 07:04) Nausea Height: 1.85 m Weight: 131.684 kg Patient Problems: Current Active Problems Hypothyroidism (acquired) (Chronic) Unstable angina pectoris (Acute) Obesity (BMI 30-39.9) (Chronic) - VTE Risk Labs: VTE Related Lab Results Hgb 10.8 g/dL (14.1-18.0) L 11/17/20 20:30 Hct 34.1 % (42.0-52.0) L 11/17/20 20:30 Plt Count 250 K/mm3 (142-424) 11/17/20 20:30 BUN 19 mg/dl (9-20) 11/17/20 20:30 Creatinine 1.10 mg/dl (0.66-1.25) 11/17/20 20:30 Estimated Creat Clear 92 mL/min (50-200) 11/17/20 20:30 Was VTE Risk Assessment Performed: Yes VTE Score: 2 VTE Risk Level: Very Low Risk Clinical Trial Participant: No - Prophylaxis VTE Prophylaxis Ordered?: Yes Types of VTE Prophylaxis: TEDS Knee High
[2020-11-18 08:18] LABS: Basophils # 0.1 K/mm3 (0-0.2); Basophils % 0.7 % (0.1-2.0); Eosinophils # 0.5 K/mm3 (0.0-0.4); Eosinophils % 3.8 % (0.1-12.0); Hematocrit 31.6 % (42.0-52.0); Hemoglobin 10.1 g/dL (14.1-18.0); Lymphocytes # 2.2 K/mm3 (0.7-4.5); Lymphocytes % 18.6 % (10-50); Mean Corpuscular Hemoglobin 26.6 pg (27.0-31.2); Mean Corpuscular Volume 83.3 fl (80-94); Mean Platelet Volume 9.2 fl (7.4-10.4); Monocytes # 1.1 K/mm3 (0.1-1.0); Monocytes % 8.9 % (1.7-9.3); Neutrophils # 8.2 K/mm3 (1.8-7.8); Neutrophils % 68.1 % (37.0-80.0); Platelet Count 204 K/mm3 (142-424); Red Blood Count 3.79 M/mm3 (4.60-6.20); Red Cell Distribution Width 14.6 % (11.5-17.5)
[2020-11-18 08:19] LABS: Blood Urea Nitrogen 16 mg/dl (9-20); Calcium 9.4 mg/dl (8.4-10.2); Carbon Dioxide 24 mmol/L (22.0-30.0); Chloride 105 mmol/L (98-107); Creatinine Clearance Estimated 117 mL/min (50-200); Estimated Glomerular Filt Rate 73 ml/min (>60); GFR (African American) 88 ML/MIN (>60); Glucose 100 mg/dl (74-100); Magnesium 2.2 mg/dl (1.6-2.3); Sodium 139 mmol/L (136-145)
--- NOTE | 2020-11-18 09:01 | HMH.CNCARD ---
<Charlene Escoto - Last Filed: 11/18/20 09:01> History of Present Illness Consult date: 11/18/20 Requesting physician: John Marin Consult reason: chest pain Chief complaint: chest pain History of present illness: This is a 75-year-old white gentleman who presented to the emergency department with complaints of chest pain. The patient states that he was eating supper and had sudden onset of chest pain. He describes this as a substernal pressure sensation that did not radiate. He states that he had a coughing fit and he started vomiting and then the chest pain started. He states his gave him nitroglycerin and it slightly helped at first but then the chest pain recurred and even worse with more vomiting and then he also had palpitations. States his gave him another nitroglycerin which did not help at all. He rated the pain a 10 out of 10 in intensity. It was associated with shortness of breath, vomiting and diaphoresis. Nothing was worsening the pain or improving the pain. He states after about an hour or 2 his brought him into the emergency department because his symptoms were not resolving. The patient does have an elevated troponin consistent with a non-ST elevation myocardial infarction. Of note, the patient does see a engineer systems, Dr. Reilly, in [facility]. He states that he thinks he wants to switch his cardiology care here to [facility] since he no longer lives in [place]. The patient has a history of coronary artery disease with 2 stents placed in the past. He also has hypertension, hyperlipidemia, is a former smoker, and has a family history of ischemic heart disease. [facility] History I have reviewed the patient's past medical history: Yes Medical History: Reports:: BPH, Cancer, Chronic Obstructive Pulmonary Disease (COPD), Coronary Artery Disease, Gastroesophageal Reflux Disease(GERD), Hyperlipidemia, Hypertension Denies:: Diabetes Mellitus Type 1, Diabetes Mellitus Type 2, Internal Pacemaker, MRSA, Seizures *Have you ever received a pneumonia vaccine?: Yes *Have you received a flu vaccine this season?: Yes Other Medical History: Reports: Anemia, Arthritis, Cataracts, Hypothyroidism, Thyroid Disease Laterality Cases: Bilateral: Arthroscopy Hip, Arthroscopy Shoulder, Total Hip Replacement Other Surgeries: Yes: Cardiac Catheterization, Colonoscopy, Coronary Stent, Hernia Repair, Other. No: Pacemaker Amputation: No Fractures: No - *Social History Last grade of school completed: High school graduate Smoking Status: Never smoker # Packs/Day (cigarettes): 1 Alcohol Intake: never Substance Use Type: denies use *Occupational Status:: retired Housing: house Household Members: spouse *Travel in the last 8 weeks: None Family Hx:: Unable to obtain Meds Home Medications Medication Instructions Recorded Confirmed Type Gabapentin [Gabapentin 300mg Cap] 300 - 600 mg PO HS 09/26/17 11/18/20 History Montelukast Sodium [Singulair 10mg 10 mg PO HS 09/26/17 11/17/20 History tablet] Pantoprazole Sodium [Protonix 40mg 40 mg PO DAILY 09/26/17 11/17/20 History tablet] Levothyroxine Sodium 50 mcg PO DAILY 05/12/18 11/17/20 History [Levothyroxine 50mcg (0.05mg) Tab] Oxycodone HCl/Acetaminophen 1 each PO BIDP PRN 08/08/18 11/17/20 History [Percocet 7.5-325 mg Tablet] Potassium Chloride 20 meq PO DAILY 08/08/18 11/17/20 History Amlodipine Besylate 10 mg PO DAILY 09/20/18 11/17/20 History Acetaminophen/Diphenhydramine 1 each PO HS 10/25/18 11/17/20 History [Tylenol Pm Ex-Strength Caplet] Furosemide [Lasix 40mg tablet] 40 mg PO BID 10/25/18 11/17/20 History Albuterol Sulfate [Proair 2 puffs IH QIDP PRN 04/25/19 11/17/20 History Respiclick] diclofenac sodium 1 % topical gel 4 g TOPICAL QID PRN #30 g 05/30/19 11/17/20 Rx carvedilol 12.5 mg tablet 12.5 mg PO BID tab 08/20/19 11/18/20 History famotidine 20 mg tablet 20 mg PO BID tab 08/20/19 11/17/20 History fluoxetine 40 mg capsule 40 m
--- NOTE | 2020-11-18 09:54 | CA_ITS ---
APPROVED REPORT Bilateral Lower Extremity Venous Study for Wheat Farmer: MILES Indications Lower Extremity Edema: Left Left leg edema Risk Factors Cardiac Disease Obesity Findings Color flow duplex demonstrates no evidence of DVT of the following bilateral lower extremity Veins:Common Femoral Vein, Femoral Vein, Popliteal Vein, Posterior Tibial Veins, Peroneal Veins. Negative for DVT. Conclusion Color flow duplex demonstrates no evidence of DVT of the following bilateral lower extremity Veins:Common Femoral Vein, Femoral Vein, Popliteal Vein, Posterior Tibial Veins, Peroneal Veins. Negative for DVT. Electronically signed by : Rodrigo Henson MD 11/18/2020 16:37:01
--- NOTE | 2020-11-18 10:12 | PC.NURSE ---
Pt off floor for heart cath
[2020-11-18 12:13] LABS: CATHL Arterial O2 SAT 45.6 % (90-100); CATHL Venous O2 SAT 47.4 % (75-80)
--- NOTE | 2020-11-18 16:31 | PC.NURSE ---
Pt arrived back from laboratory animal caretaker at 1230 via stretcher accompanied by Willem Bennett RN. Bedside report received at that time. Pt was noted to be drowsy and mildly confused. Speech was garbled and difficult to understand. At the time of this note pt has been more alert and speech is back to baseline. NSR/Sinus julio c on telemetry. +2 edema to beto ankles. He has ambulated to/from the bathroom with assist x1. Right IJ site is clean, dry and intact. Telfa and tegaderm placed to right radial site. No drainage or hematoma noted. He has been up to the chair several times for approx 1-2 hrs at a time. UOP is uncertain. He has been noncompliant with the urinal on occassion. He has denied chest pain. Appetite is good. No complaints verbalized. Will continue to monitor.
--- NOTE | 2020-11-18 23:38 | PC.NURSE ---
He is A&Ox4. He has reported pain in his left foot. Received PRN pain medication. He has requested his home medication and MD partition assembly machine operator paged and awaiting response. He ambulated around unit with stand by assist. He had to take several breaks in the hallway. His heart rate has fluctuated between 40 and 130. He continues on RA.
[2020-11-19] VITALS (12 sets, daily range): BP systolic 121–141; BP diastolic 59–74; PULSE 46–130; RESP 18; TEMP 36.4–36.5; O2SAT 65–98; BMI 38.4
--- NOTE | 2020-11-19 08:05 | HMH.DCSUM ---
General - General Admission date:: 11/18/20 Discharge date: 11/19/20 HPI HPI: Mr. Gamino is a 75-year-old gentleman who presented to the ER with approximately an hour of chest pain. Received nitro from his but had no resolution of his chest pain. Reports this pain actually worsened and he had onset of vomiting. On arrival to the ER he complained of palpitations, EKG reviewed with ST depressions. Patient was started on nitro drip and admitted to medicine for further management. Cardiology consult placed, plan for heart cath in the morning. On assessment today, patient's chest pain is improved. Continued nitro drip overnight. Denies any shortness of breath. States he is hungry and wanted to know when he is going to the Allergy Physician. Otherwise hemodynamically stable, afebrile. Hospital Course Hospital Course: Patient was admitted, subjected to left heart cath, results below: IMPRESSION Chronically occluded right coronary artery which fills via left to right collaterals Severe pulmonary hypertension all secondary to left-sided congestive heart failure Severe biventricular congestive heart failure most likely all secondary to left ventricular diastolic dysfunction PLAN 1. Medical management for coronary disease 2. Patient requires significant diuresis. Recommend giving IV Lasix until patient shows signs and symptoms of being intravascularly deplete such as an increase in creatinine. 3. Recommend sleep study 4. LDL less than 55 Patient did well with procedure, overnight was diuresed with aggressive Lasix dosing, did well, breathing much better through the night, did require oxygen for some nocturnal oxygen dips, but felt much better and had no chest pain or dyspnea this morning with his activities of bathroom visits and walking around the room. Patient will be discharged home with higher dose Lasix, higher dose spironolactone, close follow-up in 48 hours to assess fluid status and labs in the office. Objective Vital signs: Temp Pulse Resp BP Pulse Ox 97.7 F 102 H 17 126/73 95 11/19/20 04:00 11/19/20 06:00 11/18/20 20:00 11/19/20 06:00 11/19/20 06:00 no acute distress - *Routine HEENT Exam Head: Present: normocephalic Eye: Present: EOMI, PERRL ENT: Present: mucous membranes moist - *Routine Neck Exam Present: supple - *Routine Respiratory Exam Present: CTA bilaterally - *Routine Cardiovascular Exam Present: RRR - *Routine Abdominal Exam Present: soft, normoactive bowel sounds. Absent: tenderness - *Routine Extremities Exam Absent: cyanosis, clubbing, edema - *Routine Skin Exam Present: warm. Absent: rash - Detailed Eye Exam Eyelids: Bilateral normal inspection Results Labs on day of discharge: Labs from last 24 hours 11/18/20 11/18/20 11/18/20 10:55 08:05 08:05 WBC 12.0 H RBC 3.79 L Hgb 10.1 L Hct 31.6 L MCV 83.3 MCH 26.6 L MCHC 32.0 RDW 14.6 Plt Count 204 MPV 9.2 Neut % (Auto) 68.1 Lymph % (Auto) 18.6 [place] % (Auto) 8.9 Eos % (Auto) 3.8 Baso % (Auto) 0.7 Neut # (Auto) 8.2 H Lymph # (Auto) 2.2 [place] # (Auto) 1.1 H Eos # (Auto) 0.5 H Baso # (Auto) 0.1 ABG O2 Sat (Measured) 45.6 L POC VBG O2 Sat (Parish) 47.4 L Sodium 139 Potassium 4.0 Chloride 105 Carbon Dioxide 24 Anion Gap 14.0 BUN 16 Creatinine 1.00 Estimated Creat Clear 117 Estimated GFR 73 Est GFR ( Amer) 88 Glucose 100 D Calcium 9.4 Magnesium 2.2 Preliminary micro results at discharge 11/18/20 04:00 Urine Culture - Preliminary Urine,Clean Catch DS: Diagnosis - Discharge Diagnosis (1) Non-STEMI (non-ST elevated myocardial infarction) Status: Ruled-out (2) Unstable angina pectoris Status: Resolved (3) Hypothyroidism (acquired) Status: Chronic (4) Obesity (BMI 30-39.9) Status: Chronic (5) Chronic systolic CHF (congestive hear
[2020-11-19 08:46] LABS: Hematocrit 32.8 % (42.0-52.0); Hemoglobin 10.5 g/dL (14.1-18.0); Lymphocytes % 19.5 % (10-50); Mean Corpuscular HGB Conc 32.1 g/dL (31.8-35.4); Mean Corpuscular Hemoglobin 26.2 pg (27.0-31.2); Mean Corpuscular Volume 81.7 fl (80-94); Mean Platelet Volume 8.7 fl (7.4-10.4); Monocytes % 8.6 % (1.7-9.3); Platelet Count 205 K/mm3 (142-424); Red Blood Count 4.01 M/mm3 (4.60-6.20); Red Cell Distribution Width 14.4 % (11.5-17.5); White Blood Count 10.2 K/mm3 (4.8-10.8)
[2020-11-19 08:47] LABS: Basophils # 0.1 K/mm3 (0-0.2); Basophils % 0.8 % (0.1-2.0); Eosinophils # 0.6 K/mm3 (0.0-0.4); Eosinophils % 6.2 % (0.1-12.0); Monocytes # 0.9 K/mm3 (0.1-1.0); Neutrophils # 6.6 K/mm3 (1.8-7.8)
[2020-11-19 08:56] LABS: Chloride 105 mmol/L (98-107)
[2020-11-19 08:57] LABS: Potassium 4.2 mmoL/L (3.5-5.1); Sodium 139 mmol/L (136-145)
[2020-11-19 08:59] LABS: Alanine Aminotransferase 20 U/L (12-78); Anion Gap 15.2 mEq/L (5-15); Aspartate Amino Transferase 41 U/L (17-59); Bilirubin,Unconjugated 0.7 mg/dL (0.0-1.1); Blood Urea Nitrogen 20 mg/dl (9-20); Carbon Dioxide 23 mmol/L (22.0-30.0); Creatinine Clearance Estimated 117 mL/min (50-200); Estimated Glomerular Filt Rate 73 ml/min (>60); GFR (African American) 88 ML/MIN (>60)
[2020-11-19 09:00] LABS: Albumin Level 4.6 g/dl (3.5-5.0); Alkaline Phosphatase 90 U/L (38-126); Bilirubin,Direct 0.1 mg/dl (0.0-0.4); Bilirubin,Indirect 0.7 mg/dL (0.0-0.9); Bilirubin,Total 0.8 mg/dl (0.2-1.3); Calcium 9.1 mg/dl (8.4-10.2); Chol/HDL Ratio 3.8 (1-3.5); Cholesterol 169 mg/dl (140-200); Glucose 123 mg/dl (74-100); HDL Cholesterol 45 mg/dl (40-60); Total Protein,Serum 7.5 g/dl (6.3-8.2); Triglycerides 115 mg/dl (30-150); VLDL Cholesterol 23 mg/dL (0-40)
[2020-11-19 09:11] LABS: Direct LDL Cholesterol 88.81 mg/dL (100-129)
--- NOTE | 2020-11-19 11:17 | HMH.PNCARD ---
Subjective Date: 11/19/20 Time: 11:00 Principal diagnosis: biventricular chf Interval history: This is a 75-year-old white gentleman who presented to the hospital with complaints of chest pain. He was found to have a non-ST elevation myocardial infarction and underwent left cardiac catheterization yesterday. The patient had a chronically occluded right coronary artery which filled via left to right collaterals. No intervention was required. The patient also underwent right cardiac catheterization and was found to have a pulmonary wedge pressure of 50 mmHg. The patient has severe pulmonary hypertension all secondary to left-sided congestive heart failure as well as severe biventricular congestive heart failure which is most likely secondary to left ventricular diastolic function. The patient needs aggressive diuresis. He was started on IV Lasix yesterday and Dr. Wilson wanted the patient diuresed with IV Lasix until he had a bump in his creatinine. His creatinine remained the same this morning and Dr. Wilson recommended to continue IV Lasix at this time. However the patient has been discharged by his primary care provider. This is reasonable as long as the patient is aggressively diuresed on an outpatient basis with close follow-up. This morning the patient denies any chest pain or pressure. He states that he is still short of breath. He states he has been short of breath for the last several months. He states that this is maybe a little bit improved today. The patient was profoundly orthopneic and short of breath in the Information Resource Consultant yesterday. He still has lower extremity edema as well, the left is worse than the right. He denies any fever, chills, nausea, vomiting, diarrhea. Exam Vital signs and Labs for Last 24 Hours: Temp Pulse Resp BP Pulse Ox 97.6 F 102 H 17 126/73 82 L 11/19/20 08:00 11/19/20 06:00 11/18/20 20:00 11/19/20 06:00 11/19/20 08:15 Laboratory Results - last 24 hr 11/18/20 10:55: ABG O2 Sat (Measured) 45.6 L, POC VBG O2 Sat (Parish) 47.4 L 11/19/20 08:30: WBC 10.2, RBC 4.01 L, Hgb 10.5 L, Hct 32.8 L, MCV 81.7, MCH 26.2 L, MCHC 32.1, RDW 14.4, Plt Count 205, MPV 8.7, Neut % (Auto) 65.0, Lymph % (Auto) 19.5, Becker % (Auto) 8.6, Eos % (Auto) 6.2, Baso % (Auto) 0.8, Neut # (Auto) 6.6, Lymph # (Auto) 2.0, Becker # (Auto) 0.9, Eos # (Auto) 0.6 H, Baso # (Auto) 0.1 11/19/20 08:30: Sodium 139, Potassium 4.2, Chloride 105, Carbon Dioxide 23, Anion Gap 15.2 H, BUN 20, Creatinine 1.00, Estimated Creat Clear 117, Estimated GFR 73, Est GFR ( Amer) 88, Glucose 123 H, Calcium 9.1, Total Bilirubin 0.8, Direct Bilirubin 0.1, Conjugated Bilirubin 0.0, Indirect Bilirubin 0.7, Unconjugated Bilirubin 0.7, AST 41, ALT 20, Alkaline Phosphatase 90, Total Protein 7.5, Albumin 4.6, Triglycerides 115, Cholesterol 169, LDL Cholesterol Direct 88.81 L, VLDL Cholesterol 23, HDL Cholesterol 45, Cholesterol/HDL Ratio 3.8 H I & O for Last 24 hours: Intake & Output 11/16/20 11/17/20 11/18/20 11/19/20 23:59 23:59 23:59 23:59 Intake Total 749 / 749 370 / 370 Output Total 2550 / 2550 575 / 575 Balance -1801 / -1801 -205 / -205 Weight 250 lb 290 lb 5 oz 290 lb Microbiology Reports for the Last 24 Hours: Microbiology 11/18/20 04:00 Urine,Clean Catch Urine Culture - Preliminary Narrative: venous duplex shows: Color flow duplex demonstrates no evidence of DVT of the following bilateral lower extremity Veins:Common Femoral Vein, Femoral Vein, Popliteal Vein, Posterior Tibial Veins, Peroneal Veins. Negative for DVT. echo shows: 1. Mildly enlarged left atrium, normal left ventricular size, mild concentric left ventricular hypertrophy, visually estimated ejection fraction 55% with no regional wall motion abnormality, diastolic parameters are inconclusive. 2. Thickened and calcified aortic valve with mean gradient across valve of 18 mmHg, valve area is 1.3 cm, represents moderate aortic stenosis. There is n
--- NOTE | 2020-11-20 06:44 | SW/DCPLANNER ---
SET UP[ HOME 02 FOR THIS PATIENT THAT DISCHARGED TO HOME... PATIENT WAS RESISTANT TO WEAR IT BUT I FELT IT WAS BEST FOR HIM TO HAVE IT IN CASE HE GOT HOME AND WAS IN A CRISIS... PATIENT SATS WERE GOOD WHEN HE WAS UP AND AWAKE BUT DROPPED WHEN HE WAS ASLEEP... HE HAS A CPAP BUT STATED HE CAN'T STAND TO WEAR IT BECAUSE THE MASKS WORRIES HIM... D/C HOME AND TO BE DELIVERED.
== END 2020-11-19 13:00 | disposition home or self-care (01) | DRG 280 ==
LOC: ER 21:13 → 2ND 22:48
PROVIDERS: Internal Medicine; Nurse Practitioner Family; Admitting Provider Internal Medicine Adolescent Medicine; Emergency Provider Emergency Medicine; PCP Internal Medicine Adolescent Medicine; Visit Provider Internal Medicine Adolescent Medicine
PROC: 4A023N8 Measurement of Cardiac Sampling and Pressure, Bilateral, Percutaneous Approach (ICD-10-PCS; principal; 2020-11-18 12:30)
DX: I21.4 Non-ST elevation (NSTEMI) myocardial infarction (principal); I50.33 Acute on chronic diastolic (congestive) heart failure; I27.20 Pulmonary hypertension, unspecified; I25.110 Atherosclerotic heart disease of native coronary artery with unstable angina pectoris; J44.9 Chronic obstructive pulmonary disease, unspecified; Z95.5 Presence of coronary angioplasty implant and graft; Z79.899 Other long term (current) drug therapy; Z88.8 Allergy status to other drugs, medicaments and biological substances; Z88.1 Allergy status to other antibiotic agents; I11.0 Hypertensive heart disease with heart failure; Z82.49 Family history of ischemic heart disease and other diseases of the circulatory system; I50.82 Biventricular heart failure; I35.0 Nonrheumatic aortic (valve) stenosis
CPT/HCPCS: 36415; 71045; 80048; 80061; 80076; 81001; 82810; 83735; 83880; 84436; 84443; 84484; 85007; 85025; 87086; 93005; 93306; 93460; 93970; 96366; 96375; 99152; 99153; 99284; C1725; C1760; C1769; C1894; J1644; J2405; Q9957; Q9967; U0003

== ENCOUNTER → 2020-11-21 12:26 | Outpatient (CLI) | payer MEDICARE, OTHER, SELFPAY ==
[2020-11-21 13:30] LABS: Chloride 103 mmol/L (98-107); Potassium 5.1 mmoL/L (3.5-5.1); Sodium 139 mmol/L (136-145)
[2020-11-21 13:33] LABS: Anion Gap 13.1 mEq/L (5-15); Blood Urea Nitrogen 26 mg/dl (9-20); Calcium 9.3 mg/dl (8.4-10.2); Carbon Dioxide 28 mmol/L (22.0-30.0); Estimated Glomerular Filt Rate 49 ml/min (>60); GFR (African American) 60 ML/MIN (>60); Glucose 118 mg/dl (74-100)
== END ==
PROVIDERS: Visit Provider Internal Medicine Adolescent Medicine
DX: I10 Essential (primary) hypertension (principal); E78.5 Hyperlipidemia, unspecified
CPT/HCPCS: 36415; 80048

== ENCOUNTER → 2020-12-01 11:31 | Outpatient (CLI) | payer MEDICARE, OTHER, SELFPAY ==
[2020-12-01 12:08] LABS: Chloride 98 mmol/L (98-107); Potassium 4.8 mmoL/L (3.5-5.1); Sodium 136 mmol/L (136-145)
[2020-12-01 12:11] LABS: Anion Gap 17.8 mEq/L (5-15); Blood Urea Nitrogen 40 mg/dl (9-20); Calcium 9.3 mg/dl (8.4-10.2); Carbon Dioxide 25 mmol/L (22.0-30.0); Estimated Glomerular Filt Rate 39 ml/min (>60); GFR (African American) 48 ML/MIN (>60); Glucose 136 mg/dl (74-100)
== END ==
PROVIDERS: Urology; Visit Provider Internal Medicine
DX: I27.20 Pulmonary hypertension, unspecified (principal); I50.82 Biventricular heart failure; R60.0 Localized edema
CPT/HCPCS: 36415; 80048

== ENCOUNTER → 2020-12-08 10:29 | Outpatient (CLI) | payer MEDICARE, OTHER, SELFPAY ==
--- NOTE | 2020-12-08 10:31 | CA_ITS ---
APPROVED REPORT Class A Truck Driver: CHET Laterality: Bilateral Indications: WILLOW Surgery/Intervention Endarterectomy: right Doppler Spectral Velocity Analysis ECA (R) 204.70/12.50 cm/s ECA (L) 158.30/11.80 cm/s dICA (R) 80.20/9.60 cm/s dICA (L) 159.90/28.20 cm/s Berkley (R) 96.40/15.30 cm/s Berkley (L) 163.40/28.20 cm/s pICA (R) 118.80/17.60 cm/s pICA (L) 103.70/15.00 cm/s dCCA (R) 88.80/12.80 cm/s dCCA (L) 90.90/11.80 cm/s pCCA (R) 105.90/9.60 cm/s pCCA (L) 88.80/7.50 cm/s Vert (R) 78.10/0.00 cm/s Vert (L) 63.50/12.90 cm/s ICA/CCA 1.30 ICA/CCA 1.80 Findings Duplex evaluation demonstrates stenosis of the right proximal internal carotid artery <20% with PSV <140 cm/sec, EDV <100 cm/sec, and IC/CC Ratio <4.0. Duplex evaluation demonstrates stenosis of the left proximal internal carotid artery in the range of 50-69% with PSV =140 cm/sec, EDV <100 cm/sec, and IC/CC Ratio <4.0. Duplex evaluation demonstrates antegrade flow of the bilateral Vertebral Arteries. Conclusion Duplex evaluation demonstrates stenosis of the right proximal internal carotid artery <20% with PSV <140 cm/sec, EDV <100 cm/sec, and IC/CC Ratio <4.0. Duplex evaluation demonstrates stenosis of the left proximal internal carotid artery in the range of 50-69% with PSV =140 cm/sec, EDV <100 cm/sec, and IC/CC Ratio <4.0. Duplex evaluation demonstrates antegrade flow of the bilateral Vertebral Arteries. Electronically signed by : Rodrigo Henson MD 12/08/2020 15:55:32
[2020-12-08 12:51] LABS: Chloride 98 mmol/L (98-107); Potassium 5.7 mmoL/L (3.5-5.1); Sodium 132 mmol/L (136-145)
[2020-12-08 12:54] LABS: Anion Gap 13.7 mEq/L (5-15); Blood Urea Nitrogen 46 mg/dl (9-20); Carbon Dioxide 26 mmol/L (22.0-30.0); Estimated Glomerular Filt Rate 39 ml/min (>60); GFR (African American) 48 ML/MIN (>60)
[2020-12-08 12:55] LABS: Calcium 9.5 mg/dl (8.4-10.2); Glucose 126 mg/dl (74-100)
== END ==
PROVIDERS: Internal Medicine; PCP Internal Medicine Adolescent Medicine; Visit Provider Urology
DX: I65.23 Occlusion and stenosis of bilateral carotid arteries (principal); Z98.890 Other specified postprocedural states; E66.9 Obesity, unspecified; E78.5 Hyperlipidemia, unspecified; I10 Essential (primary) hypertension; I25.110 Atherosclerotic heart disease of native coronary artery with unstable angina pectoris; I27.20 Pulmonary hypertension, unspecified; I35.0 Nonrheumatic aortic (valve) stenosis; Z68.35 Body mass index [BMI] 35.0-35.9, adult
CPT/HCPCS: 36415; 80048; 93880

== ENCOUNTER → 2020-12-16 10:35 | Outpatient (CLI) | payer MEDICARE, OTHER, SELFPAY ==
[2020-12-16 11:24] LABS: Chloride 97 mmol/L (98-107); Potassium 4.6 mmoL/L (3.5-5.1); Sodium 134 mmol/L (136-145)
[2020-12-16 11:27] LABS: Anion Gap 14.6 mEq/L (5-15); Blood Urea Nitrogen 37 mg/dl (9-20); Calcium 9.6 mg/dl (8.4-10.2); Carbon Dioxide 27 mmol/L (22.0-30.0); Estimated Glomerular Filt Rate 49 ml/min (>60); GFR (African American) 60 ML/MIN (>60); Glucose 110 mg/dl (74-100)
== END ==
PROVIDERS: Visit Provider Urology
DX: E66.9 Obesity, unspecified (principal); E78.5 Hyperlipidemia, unspecified; I10 Essential (primary) hypertension; I25.10 Atherosclerotic heart disease of native coronary artery without angina pectoris; I27.20 Pulmonary hypertension, unspecified; I35.0 Nonrheumatic aortic (valve) stenosis; I65.23 Occlusion and stenosis of bilateral carotid arteries; Z98.890 Other specified postprocedural states
CPT/HCPCS: 36415; 80048

== ENCOUNTER → 2020-12-23 14:05 | Outpatient (CLI) | payer MEDICARE, OTHER, SELFPAY ==
[2020-12-23 15:47] LABS: Anion Gap 11.3 mEq/L (5-15); Blood Urea Nitrogen 27 mg/dl (9-20); Calcium 9.1 mg/dl (8.4-10.2); Carbon Dioxide 29 mmol/L (22.0-30.0); Chloride 99 mmol/L (98-107); Estimated Glomerular Filt Rate 46 ml/min (>60); GFR (African American) 55 ML/MIN (>60); Glucose 85 mg/dl (74-100); Potassium 4.3 mmoL/L (3.5-5.1); Sodium 135 mmol/L (136-145)
== END ==
PROVIDERS: Urology; Visit Provider Internal Medicine
DX: I10 Essential (primary) hypertension (principal)
CPT/HCPCS: 36415; 80048

== ENCOUNTER → 2021-04-28 11:24 | Outpatient (CLI) | payer MEDICARE, OTHER, SELFPAY ==
[2021-04-28 11:44] LABS: Basophils # 0.1 K/mm3 (0-0.2); Eosinophils # 0.6 K/mm3 (0.0-0.4); Eosinophils % 5.3 % (0.1-12.0); Hematocrit 38.2 % (42.0-52.0); Hemoglobin 12.1 g/dL (14.1-18.0); Lymphocytes # 2.3 K/mm3 (0.7-4.5); Lymphocytes % 20.8 % (10-50); Mean Corpuscular HGB Conc 31.6 g/dL (31.8-35.4); Mean Corpuscular Hemoglobin 25.5 pg (27.0-31.2); Mean Corpuscular Volume 80.6 fl (80-94); Mean Platelet Volume 8.8 fl (7.4-10.4); Monocytes # 0.8 K/mm3 (0.1-1.0); Monocytes % 7.1 % (1.7-9.3); Neutrophils # 7.1 K/mm3 (1.8-7.8); Neutrophils % 65.8 % (37.0-80.0); Platelet Count 248 K/mm3 (142-424); Red Blood Count 4.74 M/mm3 (4.60-6.20); Red Cell Distribution Width 14.5 % (11.5-17.5); White Blood Count 10.8 K/mm3 (4.8-10.8)
[2021-04-28 13:50] LABS: Alanine Aminotransferase 20 U/L (12-78); Albumin Level 4.4 g/dl (3.5-5.0); Albumin/Globulin Ratio 1.6 (1.1-1.8); Alkaline Phosphatase 89 U/L (38-126); Anion Gap 13.3 mEq/L (5-15); Aspartate Amino Transferase 25 U/L (17-59); Bilirubin,Total 0.5 mg/dl (0.2-1.3); Blood Urea Nitrogen 23 mg/dl (9-20); Calcium 8.8 mg/dl (8.4-10.2); Carbon Dioxide 28 mmol/L (22.0-30.0); Chloride 99 mmol/L (98-107); Estimated Glomerular Filt Rate 65 ml/min (>60); GFR (African American) 79 ML/MIN (>60); Globulin 2.8 g/dL (1.3-3.2); Glucose 95 mg/dl (74-100); Potassium 4.3 mmoL/L (3.5-5.1); Sodium 136 mmol/L (136-145); Total Protein,Serum 7.2 g/dl (6.3-8.2)
[2021-04-28 14:09] LABS: Free Thyroxine Index 3.3 ug/dL (5.93-13.13); T4 (Thyroxine) 9.9 ug/dl (5.53-11.0); Triiodothryronine (T3) Uptake 33 % (23.5-40.5)
[2021-04-28 14:22] LABS: Thyroid Stimulating Hormone 2.87 uIU/mL (0.465-4.68)
== END ==
PROVIDERS: Visit Provider Internal Medicine Adolescent Medicine
DX: I10 Essential (primary) hypertension (principal); E03.9 Hypothyroidism, unspecified
CPT/HCPCS: 36415; 80053; 84436; 84443; 84479; 85025

== ENCOUNTER → 2021-05-25 08:00 | Outpatient (CLI) | payer MEDICARE, OTHER, SELFPAY ==
--- NOTE | 2021-05-25 08:07 | XR_ITS ---
PROCEDURE: XR FOOT WT BEARING LT 3V CLINICAL INDICATION: pain COMPARISON: CR XR FOOT WT BEARING LT 3V from 05/28/2019 FINDINGS: No fracture or dislocation. No lytic or blastic change. There is normal mineralization. The joint spaces are well-preserved. No significant degenerative/arthritic changes. No erosive changes evident. Other findings:None. IMPRESSION: Negative left foot. No significant change Dictated by: Rodrigo Henson MD 05/25/2021 11:42 Rodrigo Henson MD in [place] 05/25/2021 11:42
--- NOTE | 2021-05-25 08:07 | XR_ITS ---
PROCEDURE: XR FOOT WT BEARING RT 3V CLINICAL INDICATION: pain COMPARISON: CR XR FOOT WT BEARING LT 3V from 05/28/2019 FINDINGS: No fracture or dislocation. No lytic or blastic change. There is normal mineralization. The joint spaces are well-preserved. No significant degenerative/arthritic changes. No erosive changes evident. Other findings:Long the medial and proximal aspect of the 1st proximal phalanx there is a 2 mm linear opacity consistent with a small foreign body within the soft tissues. No bony involvement. IMPRESSION: Small foreign body along the proximal and medial aspect of the proximal 1st phalanx otherwise negative Dictated by: Rodrigo Henson MD 05/25/2021 11:45 Rodrigo Henson MD in [facility] 05/25/2021 11:45
== END ==
PROVIDERS: PCP Internal Medicine Adolescent Medicine; Visit Provider Podiatrist
DX: M79.672 Pain in left foot (principal); M79.671 Pain in right foot
CPT/HCPCS: 73630

== ENCOUNTER → 2021-06-29 13:25 | Outpatient (CLI) | payer MEDICARE, OTHER, SELFPAY | PROVIDERS: Visit Provider Ophthalmology | DX: Z01.812 Encounter for preprocedural laboratory examination (principal); Z11.52 Encounter for screening for COVID-19; U07.1 COVID-19 | CPT/HCPCS: C9803; U0003; U0005 ==

== ENCOUNTER → 2021-06-30 09:57 | Outpatient (CLI) | payer MEDICARE, OTHER, SELFPAY | PROVIDERS: PCP Internal Medicine Adolescent Medicine; Visit Provider Nurse Practitioner | DX: Z20.822 Contact with and (suspected) exposure to COVID-19 (principal) | CPT/HCPCS: C9803; U0003; U0005 ==

== ENCOUNTER → 2021-07-13 08:14 | Outpatient (CLI) | payer MEDICARE, OTHER, SELFPAY | PROVIDERS: PCP Internal Medicine Adolescent Medicine; Visit Provider Nurse Practitioner | DX: Z20.822 Contact with and (suspected) exposure to COVID-19 (principal) | CPT/HCPCS: C9803; U0003; U0005 ==

== ENCOUNTER 2021-07-14 07:42 | Day surgery (SDC) | payer MEDICARE, OTHER, SELFPAY ==
[2021-07-10 11:30] VITALS: BMI 36.9
[2021-07-14 08:15] VITALS: BP 161/74; PULSE 61; RESP 18; TEMP 36.2; O2SAT 98
[2021-07-14 09:22] VITALS: BP 166/77; PULSE 54; RESP 20; TEMP 36.6; O2SAT 99
== END 2021-07-14 09:30 | disposition home or self-care (01) ==
LOC: OUTP 07:44
PROVIDERS: PCP Internal Medicine Adolescent Medicine; Visit Provider Ophthalmology
PROC: (CPT 66821; principal; 2021-07-14 09:00)
DX: H26.493 Other secondary cataract, bilateral (principal); Z96.1 Presence of intraocular lens; J44.9 Chronic obstructive pulmonary disease, unspecified; I10 Essential (primary) hypertension; Z86.59 Personal history of other mental and behavioral disorders; I25.10 Atherosclerotic heart disease of native coronary artery without angina pectoris; E78.5 Hyperlipidemia, unspecified; Z88.8 Allergy status to other drugs, medicaments and biological substances; Z88.6 Allergy status to analgesic agent; Z79.899 Other long term (current) drug therapy; Z79.82 Long term (current) use of aspirin
CPT/HCPCS: 66821

== ENCOUNTER 2021-08-25 11:56 | Outpatient (RCR) | payer MEDICARE, OTHER, SELFPAY ==
--- NOTE | 2021-08-25 12:13 | XR_ITS ---
PROCEDURE: XR CALCANEUS RT MIN 2V CLINICAL INDICATION: Heel pain, stress fx COMPARISON: No exams were available for comparison FINDINGS: No fracture or dislocation. No lytic or blastic change. There is normal mineralization. The joint spaces are well-preserved. No significant degenerative/arthritic changes. No erosive changes evident. Other findings:None. IMPRESSION: No acute findings. Dictated by: Rodrigo Henson MD 08/25/2021 17:09 Rodrigo Henson MD in [facility] 08/25/2021 17:09
== END 2021-08-25 12:27 | disposition home or self-care (01) ==
LOC: PT 11:56
PROVIDERS: Visit Provider Podiatrist
DX: S90.31XA Contusion of right foot, initial encounter (principal); S92.044A Nondisplaced other fracture of tuberosity of right calcaneus, initial encounter for closed fracture; T14.8XXA Other injury of unspecified body region, initial encounter; R60.0 Localized edema
CPT/HCPCS: 73650

== ENCOUNTER → 2021-09-01 12:05 | Outpatient (CLI) | payer MEDICARE, OTHER, SELFPAY ==
[2021-09-01 13:21] LABS: Basophils # 0.1 K/mm3 (0-0.2); Basophils % 0.9 % (0.1-2.0); Eosinophils # 0.3 K/mm3 (0.0-0.4); Eosinophils % 2.8 % (0.1-12.0); Hematocrit 43.5 % (42.0-52.0); Hemoglobin 13.9 g/dL (14.1-18.0); Lymphocytes # 2.2 K/mm3 (0.7-4.5); Lymphocytes % 18.5 % (10-50); Mean Corpuscular Hemoglobin 26.1 pg (27.0-31.2); Mean Corpuscular Volume 81.7 fl (80-94); Mean Platelet Volume 8.8 fl (7.4-10.4); Monocytes # 0.7 K/mm3 (0.1-1.0); Monocytes % 5.7 % (1.7-9.3); Neutrophils # 8.7 K/mm3 (1.8-7.8); Platelet Count 263 K/mm3 (142-424); Red Blood Count 5.32 M/mm3 (4.60-6.20); Red Cell Distribution Width 15.1 % (11.5-17.5)
[2021-09-01 13:41] LABS: Chloride 101 mmol/L (98-107); Sodium 138 mmol/L (136-145)
[2021-09-01 13:44] LABS: Blood Urea Nitrogen 19 mg/dl (9-20); Carbon Dioxide 25 mmol/L (22.0-30.0); Estimated Glomerular Filt Rate 59 ml/min (>60); GFR (African American) 71 ML/MIN (>60)
[2021-09-01 13:45] LABS: Calcium 9.3 mg/dl (8.4-10.2); Glucose 103 mg/dl (74-100)
== END ==
PROVIDERS: Visit Provider Urology
DX: E66.01 Morbid (severe) obesity due to excess calories (principal); E78.5 Hyperlipidemia, unspecified; I20.9 Angina pectoris, unspecified; I27.20 Pulmonary hypertension, unspecified; I35.0 Nonrheumatic aortic (valve) stenosis; I50.22 Chronic systolic (congestive) heart failure; I50.82 Biventricular heart failure; I65.23 Occlusion and stenosis of bilateral carotid arteries; Z98.890 Other specified postprocedural states; I11.0 Hypertensive heart disease with heart failure; Z68.37 Body mass index [BMI] 37.0-37.9, adult; Z20.822 Contact with and (suspected) exposure to COVID-19
CPT/HCPCS: 36415; 80048; 85025; C9803; U0003; U0005

== ENCOUNTER → 2021-11-10 13:41 | Outpatient (CLI) | payer MEDICARE, OTHER, SELFPAY ==
[2021-11-10 15:15] LABS: Prostate Specific Ag Screen 0.6 ng/ml (0.0-4.0)
== END ==
PROVIDERS: Visit Provider Urology
DX: Z12.5 Encounter for screening for malignant neoplasm of prostate (principal)
CPT/HCPCS: 36415; G0103

== ENCOUNTER → 2021-11-13 10:10 | Outpatient (CLI) | payer MEDICARE, OTHER, SELFPAY | PROVIDERS: Visit Provider Urology | DX: N40.1 Benign prostatic hyperplasia with lower urinary tract symptoms (principal); Z01.812 Encounter for preprocedural laboratory examination; Z11.52 Encounter for screening for COVID-19 | CPT/HCPCS: C9803; U0003; U0005 ==

== ENCOUNTER 2021-11-16 07:48 | Day surgery (SDC) | payer MEDICARE, OTHER, SELFPAY ==
[2021-11-16 08:23] VITALS: BP 158/79; PULSE 72; RESP 20; TEMP 36.3; O2SAT 96; BMI 37.4
[2021-11-16 09:35] VITALS: BP 139/73; PULSE 61; RESP 18; TEMP 36.5; O2SAT 97
--- NOTE | 2021-11-16 10:01 | P.OP_ITS ---
Date of procedure: 11/16/21 Pre-op Diagnosis:: Urinary hesitancy, straining, slow stream and urgency Post-op Diagnosis:: Same Procedure performed:: Cystoscopy with urethral dilation of the pendulous urethral stricture Surgeon:: Rajesh Crowder MD Anesthesia: local Estimated blood loss (mL): 0 Clinical Note:: Patient is a 76-year-old white male with urinary hesitancy, straining to void and urinary urgency. Recent office visit revealed a bladder scan of over 400 cc. Patient does have history of BPH status post a TURP in 2019. He presents for urologic evaluation. Operative findings:: No evidence of bladder neck contracture or regrowth of prostatic adenoma. The bladder shows mild trabeculation but no cellules or diverticula formation. Small amount of sediment was noted in the bladder base. There was some urethral stenosis at the distal penile urethra. Operative note:: Patient taken to the cystoscopy suite after informed consent was obtained. On the stretcher he was prepped and draped in the standard surgical fashion and 2% lidocaine placed into the urethra. Urethral clamp was placed for 5 minutes. After 5 minutes the flexible cystoscope introduced into the urethral meatus and there was some resistance at the distal penile urethra that we were able to manipulate the 16 Setswana scope by. Scope passed to the prostatic urethra which showed a nice TUR defect and no evidence of bladder neck contracture or regrowth of adenoma. The bladder was entered and examined in a systematic fashion. There was some mild trabeculation present but no cellules or diverticula. A small amount of sediment was noted in the bladder base. The ureteral orifices were in their normal anatomic position and well away from the bladder neck. There was clear efflux of urine noted from each. The scope was retroflexed showing no evidence of a median lobe. The scope then removed and the distal urethra dilated with a 22 and 24 Setswana [place] sounds. Patient tolerated the procedure well there are no complications. Condition: stable Disposition: same day Specimens:: None Complications:: None
== END 2021-11-16 09:36 | disposition home or self-care (01) ==
LOC: OUTP 07:50
PROVIDERS: PCP Internal Medicine Adolescent Medicine; Visit Provider Urology
DX: N35.919 Unspecified urethral stricture, male, unspecified site (principal); Z85.46 Personal history of malignant neoplasm of prostate; Z79.82 Long term (current) use of aspirin; Z79.899 Other long term (current) drug therapy; J44.9 Chronic obstructive pulmonary disease, unspecified; I25.10 Atherosclerotic heart disease of native coronary artery without angina pectoris; K21.9 Gastro-esophageal reflux disease without esophagitis; E78.5 Hyperlipidemia, unspecified; I10 Essential (primary) hypertension; M19.90 Unspecified osteoarthritis, unspecified site; E03.9 Hypothyroidism, unspecified
CPT/HCPCS: 52281

== ENCOUNTER → 2021-12-15 10:34 | Outpatient (CLI) | payer MEDICARE, OTHER, SELFPAY ==
[2021-12-15 11:27] LABS: Basophils # 0.1 K/mm3 (0-0.2); Basophils % 1.1 % (0.1-2.0); Eosinophils # 0.2 K/mm3 (0.0-0.4); Eosinophils % 2.7 % (0.1-12.0); Hematocrit 36.4 % (42.0-52.0); Lymphocytes # 1.7 K/mm3 (0.7-4.5); Lymphocytes % 20.5 % (10-50); Mean Corpuscular Volume 81.7 fl (80-94); Mean Platelet Volume 8.6 fl (7.4-10.4); Monocytes # 0.6 K/mm3 (0.1-1.0); Monocytes % 7.1 % (1.7-9.3); Neutrophils # 5.7 K/mm3 (1.8-7.8); Neutrophils % 68.6 % (37.0-80.0); Platelet Count 208 K/mm3 (142-424); Red Blood Count 4.45 M/mm3 (4.60-6.20); Red Cell Distribution Width 15.6 % (11.5-17.5); White Blood Count 8.3 K/mm3 (4.8-10.8)
[2021-12-15 11:38] LABS: Chloride 103 mmol/L (98-107); Potassium 3.6 mmoL/L (3.5-5.1); Sodium 136 mmol/L (136-145)
[2021-12-15 11:40] LABS: Alanine Aminotransferase 27 U/L (12-78); Aspartate Amino Transferase 29 U/L (17-59); Blood Urea Nitrogen 18 mg/dl (9-20); Estimated Glomerular Filt Rate 59 ml/min (>60); GFR (African American) 71 ML/MIN (>60)
[2021-12-15 11:41] LABS: Albumin Level 3.9 g/dl (3.5-5.0); Albumin/Globulin Ratio 1.3 (1.1-1.8); Alkaline Phosphatase 85 U/L (38-126); Anion Gap 10.6 mEq/L (5-15); Bilirubin,Total 0.7 mg/dl (0.2-1.3); Calcium 8.2 mg/dl (8.4-10.2); Carbon Dioxide 26 mmol/L (22.0-30.0); Globulin 2.9 g/dL (1.3-3.2); Glucose 112 mg/dl (74-100); Total Protein,Serum 6.8 g/dl (6.3-8.2)
[2021-12-15 11:46] LABS: C-Reactive Protein 12.1 mg/L (0-4)
[2021-12-15 12:02] LABS: Erythrocyte Sedimentation Rate 26 mm/hr (0-20)
== END ==
PROVIDERS: PCP Internal Medicine Adolescent Medicine; Visit Provider Podiatrist
DX: B35.1 Tinea unguium (principal); M79.672 Pain in left foot; M79.605 Pain in left leg
CPT/HCPCS: 36415; 80053; 85025; 85651; 86140

== ENCOUNTER → 2021-12-16 10:30 | Outpatient (CLI) | payer MEDICARE, OTHER, SELFPAY ==
--- NOTE | 2021-12-16 10:30 | MR_ITS ---
FINAL REPORT CLINICAL HISTORY: LEFT LATERAL FOOT PAIN, BUNION, FALL 4 MONTHS AGO BRUISING ON [id number] PROHANCE INJECTED FINDINGS: Multiplanar MR imaging of the left foot was obtained with and without contrast. Images are degraded by patient motion. The Achilles tendon is intact. The plantar fascia is unremarkable. The mortise is intact. The flexor and extensor tendons appear intact. There is a small degenerative cyst in the medial distal 1st metatarsal. There is no abnormal contrast enhancement. IMPRESSION: Degenerative cyst in the distal 1st metatarsal. Reviewed, Interpreted and Dictated by Cheo Mirza MD Transcribed by Teresa Land Authenticated by Cheo Mirza MD on 12/16/2021 02:46:40 PM [facility]
== END ==
PROVIDERS: PCP Internal Medicine Adolescent Medicine; Visit Provider Podiatrist
DX: L03.116 Cellulitis of left lower limb (principal); M77.52 Other enthesopathy of left foot and ankle; M79.672 Pain in left foot
CPT/HCPCS: 73720; A9576

== ENCOUNTER → 2021-12-17 10:37 | Outpatient (POV) | payer MEDICARE, OTHER, SELFPAY ==
[2021-12-17 10:55] VITALS: BP 143/68; PULSE 67; RESP 18; TEMP 36.6; O2SAT 92; BMI 38.5
--- NOTE | 2021-12-17 12:10 | HMH.PMCON ---
Assessment and Plan (1) Degenerative joint disease (DJD) of lumbar spine Status: Acute Category: Medical Code(s): M47.816 - Spondylosis without myelopathy or radiculopathy, lumbar region (2) Lumbar radiculopathy Status: Acute Category: Medical Code(s): M54.16 - Radiculopathy, lumbar region - Assessment and plan all Dx Assessment and Plan for all problems:: Patient has an extensive surgical history including discectomy and lumbar fusion of L5-S1, bilateral hip replacement, bilateral rotator cuff repair. Patient is complaining of low back pain today that is better with lumbar flexion and worse with extension. MRI of the thoracic and lumbar spine shows mild degenerative disc changes with no central canal stenosis and no bilateral neural foraminal stenosis. Per exam, patient is tender to palpation around the lumbar paraspinous specifically around the L1 level. We will schedule the patient for a trigger point injection of the lumbar paraspinous. Risks and benefits of the procedure have been explained to the patient. Patient would like to proceed with the procedure. If the patient gets minimal relief from this injection, we will consider doing a lumbar epidural steroid injection. Patient has been instructed to contact the clinic with any concerns before the next appointment. Dr. Jorgensen has reviewed this note and agrees with this plan of care. This note was dictated using voice recognition software and make contain errors or omissions. HPI - Data of Consult Patient: new to practice Consult date: 12/17/21 Requesting Physician: RENE Ayala - Consult Narrative Reason for consult: Low back pain History of present illness: Mr. Gamino is a 76 year old male who presents today as a new patient. Patient is referred by Venu Esquivel PA-C. Thank you for the referral. Patient presents today with a chronic low back pain. He has a surgical history of discectom and Lumbar Fusion by Dr. Machuca, bilateral shoulder rotator cuff repair, bilateral hip replacements. Patient is referred to us because he is a nonsurgical candidate per neurosurgery. He has been having his low back pain for several months now. This is better with lumbar flexion and worse with extension. He states that sometimes the pain radiates to bilateral lower extremities. MRI of the thoracic and lumbar spine shows mild degenerative disc changes with no central canal stenosis and no neural foraminal narrowing. Rates his pain today 03/14. Jesus #[id number] with an active morphine equivalent of 23. Patient is taking Percocet 7.5 mg twice a day and gabapentin 300 mg 3 times a day that are prescribed by Dr. Rodriguez. CC: RENE Ayala [facility] History Medical History: Reports:: BPH, Cancer, Chronic Obstructive Pulmonary Disease (COPD), Coronary Artery Disease, Gastroesophageal Reflux Disease(GERD), Hyperlipidemia, Hypertension Denies:: Diabetes Mellitus Type 1, Diabetes Mellitus Type 2, Internal Pacemaker, MRSA, Seizures *Have you ever received a pneumonia vaccine?: Yes *Have you received a flu vaccine this season?: Yes Other Medical History: Reports: Anemia, Arthritis, Cataracts, Hypothyroidism, Thyroid Disease Laterality Cases: Right: Arthroscopy Shoulder, Bilateral: Arthroscopy Hip, Total Hip Replacement Other Surgeries: Yes: No Previous Surgery, Cardiac Catheterization, Colonoscopy, Coronary Stent, Hernia Repair, Other. No: Pacemaker Amputation: No Fractures: Yes (LOWER BACK VERTEBRA) - *Social History Smoking Status: Former smoker # Packs/Day (cigarettes): 1 #Yrs smoked (if former smoker): 40 Alcohol Intake: never Substance Use Type: denies use *Occupational Status:: retired Housing: house Household Members: spouse *Travel in the last 8 weeks: None Family Hx:: Asthma, Cancer, Heart Attack, Hyperlipidemia, Hypertension, Stroke Review of Systems - Review of Systems Review of Systems: General: No recent weight changes, no fever, no sleep disturbances Respi
== END ==
PROVIDERS: Visit Provider Student in an Organized Health Care Education/Training Program
DX: M47.896 Other spondylosis, lumbar region (principal); M54.16 Radiculopathy, lumbar region
CPT/HCPCS: 99202; G0463

== ENCOUNTER → 2021-12-22 12:19 | Outpatient (CLI) | payer MEDICARE, OTHER, SELFPAY ==
--- NOTE | 2021-12-22 12:39 | CA_ITS ---
APPROVED REPORT EXAM: Comprehensive 2D, Doppler, and color-flow Echocardiogram Tool Grinder: Alejandra Garrett RVT Ht: 6 ft 1 in Wt: 289lbs BSA: 2.52 BP: 139/49 mmHg Indications: ,PHTN,CAD,HTN,FATIGUE,EDEMA,HLD 2D Dimensions LVOT 2.00 cm (M/F) 1.5-2.5 LA Volume 60.90 mL LA Volume Index 24.26 mL/m2 (M/F) 16-34 M-Mode Dimensions RVDd 3.26 cm (0.9-2.6) LA Diam 4.09 cm (1.9-4.0) LVDd 5.50 cm (3.5-5.7) Ao Diam 3.43 cm (2.0-3.7) LVDs 3.71 cm (3.5-5.7) IVSd 0.77 cm (0.6-1.1) PWd 1.34 cm (0.6-1.1) EF (Teich) 60.30% FS 32.50% EDV (Teich) 147.40 mL TAPSE 2.17 (<1.7) ESV (Teich) 58.50 mL LV Diastology E Decel Time 220.00 (160-240 msec) E/A Ratio 0.8 MED E' 3.90 (< 7 cm/sec) E'/MED E' Ratio 21.03 (>14) LAT E' 10.00 (<10 cm/sec) E/LAT E' Ratio 8.20 (>14) Aortic Valve LVOT Max 126.00 (70-110 cm/s) LVOT VTI 30.34 cm AoV Peak Jovanni. 263.00 (50-130 cm/s) AI PHT 1073.00 ms AO Peak GR. 27.60 mmHg AO Mean GR. 16.10 (<5 mmHg) AO VTI 63.73 (18-25 cm) ROHINI (VTI) 1.50 (2.5-4.5 cm2) Mitral Valve MV E Max Jovanni. 82.00 (40-130 cm/s) MV A Velocity 103.00 (40-130 cm/s) E/A Ratio 0.80 MV Decel. Time 220.00 (160-240 ms) MV PHT 64.00 ms Pulmonary Valve PV Peak Velocity 112.00 (50-150 cm/s) Tricuspid Valve TR P. Velocity 239.00 cm/s RAP Estimate 10.00 mmHg RVSP 32.80 mmHg Left Ventricle Left atrium is mildly enlarged, left ventricle is normal size, mild concentric left ventricular hypertrophy, estimated ejection fraction 55% with no regional wall motion abnormality, Doppler evidence of impaired LV relaxation seen, tissue Doppler is inadequate for assessment of left atrial pressure. Right Ventricle Right atrium and right ventricle are normal size and contractility. Aortic Valve Aortic valve is thickened and calcified, mean gradient across aortic valve is 17 mmHg, valve area is 1.4 cm represents mild aortic stenosis, there is mild aortic insufficiency. Mitral Valve Mitral valve leaflets are minimally thickened, there is no mitral stenosis, there is mild mitral regurgitation. Tricuspid Valve Tricuspid valve grossly normal, there is mild tricuspid regurgitation, tricuspid regurgitation jet velocity is inadequate for calculation of the right ventricular systolic pressure. Pulmonic Valve Pulmonic valve is poorly visualized. Great Vessels Aortic root is normal size. Inferior vena cava is poorly visualized. Pericardium No significant pericardial effusion noted. Conclusion 1. Mildly enlarged left atrium, normal left ventricular size, mild concentric left ventricular hypertrophy, estimated ejection fraction 55% with no regional wall motion abnormality, Doppler evidence of impaired LV relaxation seen. 2. Thickened and calcified aortic valve with mean gradient across aortic valve of 17 mmHg, valve area is 1.4 cm represents mild aortic stenosis, there is mild aortic insufficiency. 3. Mild mitral and tricuspid regurgitation. 4. No significant pericardial effusion. 5. Inferior vena cava is poorly visualized. Electronically signed by : Rob Ramos MD 12/23/2021 05:57:21
--- NOTE | 2021-12-22 12:39 | CA_ITS ---
FINAL REPORT TECHNIQUE: Color Doppler, duplex Doppler and wilson scale sonography of the bilateral neck arterial vasculature was performed. Velocities were measured in the carotid arteries. Stenosis evaluation based on the validated velocity criteria. CLINICAL HISTORY: WILLOW,HX RT ENDADECTOMY, DIZZINESS,HTN,HLD FINDINGS: The peak systolic velocity of the right common carotid artery is 67 cm/s. The peak systolic velocity of the right internal carotid artery is 60 cm/s and end diastolic velocity 14 cm/s. The ICA/CCA ratio is 0.89. A mild amount of plaque is present. The right external carotid artery is patent. The right vertebral artery is patent with antegrade flow. The peak systolic velocity of the left common carotid artery is 97 cm/s. The peak systolic velocity of the left internal carotid artery is 182 cm/s and end diastolic velocity 30 cm/s. The ICA/CCA ratio is 1.87. A mild amount of plaque is present. The left external carotid artery is patent.The left vertebral artery is patent with antegrade flow. IMPRESSION: Less than 50% right carotid stenosis. 50-69% left carotid stenosis. Bilateral patent vertebral arteries with antegrade flow. If indicated, CTA or MRA could further evaluate. Reviewed, Interpreted and Dictated by Shaquille Xiao III, MD Transcribed by Zoila Howell Authenticated by Shaquille Xiao III, MD on 12/22/2021 03:16:51 PM [facility]
== END ==
PROVIDERS: PCP Internal Medicine Adolescent Medicine; Visit Provider Internal Medicine
DX: I65.23 Occlusion and stenosis of bilateral carotid arteries (principal); I25.10 Atherosclerotic heart disease of native coronary artery without angina pectoris
CPT/HCPCS: 93306; 93880

== ENCOUNTER 2021-12-25 09:04 | Day surgery (SDC) | payer MEDICARE, OTHER, SELFPAY ==
[2021-12-25 09:19] VITALS: BP 162/69; BP 178/59; PULSE 68; PULSE 78; RESP 18; RESP 20; TEMP 36.5; O2SAT 96; O2SAT 98; BMI 37.7
[2021-12-25 09:27] VITALS: BP 192/107; PULSE 68; RESP 18; O2SAT 98
[2021-12-25 09:32] VITALS: BP 192/107; PULSE 73; RESP 18; O2SAT 99
--- NOTE | 2021-12-25 09:37 | HMH.PMPROC ---
- Procedure Date: 12/25/21 Time: 09:37 Anesthesiologist:: Francisco Shah CRNA Complications:: None Pre-procedure Diagnosis:: Myofascial lumbar paraspinous muscle spasm. Post-procedure Diagnosis:: Same Indications for Procedure:: This patient is a pleasant 76-year-old white male that we have been treating for quite some time for low back issues. He has had 3 lumbar surgeries in the past. He has had several injections of different types in the lumbar spine. Today presents for paraspinous muscle bilateral trigger point injections. Procedure Details:: Details of the procedure were explained to the patient. The patient was taken the procedure room placed in the sitting position. The area of the lumbar spine was cleaned using chlorhexidine as a cleansing solution. In 3 different injection sites bilaterally 2 to 3 cc of a solution containing 0.25% Marcaine 1% lidocaine and 40 mg of Depo-Medrol was injected. Injected in a fanning fashion using a 1-1/2 inch 25-gauge needle. Patient tolerated the procedure without difficulty. There are no complications. Plan and Disposition:: Patient was discharged home without difficulty. He will return to see us as needed.
== END 2021-12-25 09:42 | disposition home or self-care (01) ==
LOC: SC.PAINP 09:05
PROVIDERS: PCP Internal Medicine Adolescent Medicine; Visit Provider Nurse Anesthetist, Certified Registered
DX: M62.830 Muscle spasm of back (principal); D64.9 Anemia, unspecified; N40.0 Benign prostatic hyperplasia without lower urinary tract symptoms; J44.9 Chronic obstructive pulmonary disease, unspecified; I25.10 Atherosclerotic heart disease of native coronary artery without angina pectoris; K21.9 Gastro-esophageal reflux disease without esophagitis; E78.5 Hyperlipidemia, unspecified; I10 Essential (primary) hypertension; M19.90 Unspecified osteoarthritis, unspecified site; E03.9 Hypothyroidism, unspecified; Z85.9 Personal history of malignant neoplasm, unspecified; Z87.891 Personal history of nicotine dependence
CPT/HCPCS: 20552; J1040

== ENCOUNTER → 2022-01-28 13:22 | Outpatient (POV) | payer MEDICARE, OTHER, SELFPAY ==
[2022-01-28 14:12] VITALS: BP 134/68; PULSE 58; RESP 18; TEMP 36.9; O2SAT 95; BMI 37.2
--- NOTE | 2022-01-28 15:11 | HMH.PAINSOAP ---
[facility] Pain Management SOAP Note Subjective:: Patient is a pleasant 76-year-old male who presents today for follow-up after trigger point injections of bilateral lumbar paraspinous at the L1 level. Patient is currently being treated for degenerative disc disease of lumbar spine, lumbar radiculopathy, myofascial pain. After the procedure, patient had 80 to 90% relief of symptoms and continues to have relief from this today. He rates his pain as 2 out of 10. Denies any issues after procedure. Additionally, patient recently established with us. Patient has an extensive surgical history including a discectomy and lumbar fusion of L5-S1, bilateral hip replacement, bilateral rotator cuff repair. He saw Dr. Machuca [facility] before he established with us. Dr. Machuca says that there is nothing to do at the moment. Patient is a nonsurgical candidate. Today, patient is complaining of still some nagging pain close to the trigger point injection sites. He says that this is more lateral from the injection site. For pain, he takes gabapentin 300 mg 3 times a day that is prescribed by Dr. Rodriguez. [facility] [phone] with an active morphine equivalent of 0. Review of Systems: General: No recent weight changes, no fever, no sleep disturbances Respiratory: No cough, no shortness of air, no recurring pulmonary infections Cardiovascular/peripheral vascular: No chest pain, no palpitations, no edema, no shortness of breath Gastrointestinal: No new onset incontinence, normal bowel movements reported Genitourinary: No new onset incontinence Musculoskeletal: Low back pain Psychiatric: [Normal mood/affect] Neurological: [Denies weakness in extremities], [denies balance issues] Objective:: What ever the flavor is physical Exam: General: Alert and oriented x3, no acute distress, pleasant and cooperative Lungs: Respirations even and unlabored, symmetrical chest expansion Eyes: PERRL Musculoskeletal: Flexion and extension of lumbar [spine] somewhat guarded secondary to pain, [antalgic gait noted]; patient still has a tender spot around the more lateral side of the lumbar paraspinous muscle at the L1 level. Neurological: Speech clear, no gross sensory deficit Assessment:: Myofascial pain Degenerative disc disease of lumbar spine with lumbar radiculopathy symptoms Plan:: Patient had significant relief after the trigger point injections around the lumbar paraspinous at the L1 vertebral level. Today, patient still has some tender spots around a more lateral area from the previous trigger point injection sites especially on the left side of his back. We will schedule the patient for a repeat trigger point injection at the lumbar paraspinous muscles. Risks and benefits of the procedure have been explained to the patient. Patient would like to proceed with the procedure. Patient has been instructed to contact the clinic with any concerns before the next appointment. Dr. Jorgensen has reviewed this note and agrees with this plan of care. This note was dictated using voice recognition software and make contain errors or omissions. [facility] History Medical History: Reports:: BPH, Cancer, Congestive Heart Failure, Chronic Obstructive Pulmonary Disease (COPD), Coronary Artery Disease, Gastroesophageal Reflux Disease(GERD), Hyperlipidemia, Hypertension, Urinary Tract Infection Denies:: Diabetes Mellitus Type 1, Diabetes Mellitus Type 2, Internal Pacemaker, MRSA, Seizures *Have you ever received a pneumonia vaccine?: Yes *Have you received a flu vaccine this season?: Yes Other Medical History: Reports: Anemia, Arthritis, Cataracts, Hypothyroidism, Thyroid Disease Laterality Cases: Right: Arthroscopy Shoulder, Bilateral: Arthroscopy Hip, Total Hip Replacement Other Surgeries: Yes: No Previous Surgery, Cancer Surgery, Cardiac Catheterization, Colonoscopy, Coronary Stent, Hernia Repair, Other. No: Pacemaker Amputation: No Fractures: Yes (LOWER BACK VERTEBRA) - *Social History Smoking S
== END ==
PROVIDERS: Visit Provider Student in an Organized Health Care Education/Training Program
DX: M79.18 Myalgia, other site (principal); M51.16 Intervertebral disc disorders with radiculopathy, lumbar region
CPT/HCPCS: 99212; G0463

== ENCOUNTER 2022-02-12 08:24 | Day surgery (SDC) | payer MEDICARE, OTHER, SELFPAY ==
[2022-02-12 08:26] VITALS: BP 175/63; PULSE 68; RESP 18; TEMP 36.4; O2SAT 98; BMI 37.5
[2022-02-12 08:41] VITALS: BP 128/95; PULSE 69; RESP 18; O2SAT 98
[2022-02-12 08:43] VITALS: BP 128/95; PULSE 67; RESP 18; O2SAT 98
--- NOTE | 2022-02-12 08:46 | P.PCN_ITS ---
- Procedure Date: 02/12/22 Time: 08:46 Anesthesiologist:: Francisco Shah CRNA Complications:: None Pre-procedure Diagnosis:: Myofascial pain left lumbar paraspinous muscle Post-procedure Diagnosis:: Same Indications for Procedure:: Very pleasant 76-year-old male who is received lumbar bilateral paraspinous trigger point injections in the past with significant improvement. These inject ions were giving the [id number] area. However still having some pain on the left side. We will repeat the left trigger point injection lumbar paraspinous muscle ranging from L1-L5. Procedure Details:: Details of the procedure were explained to the patient. The patient was taken the procedure room placed in the sitting position. The area over the lumbar spine was cleansed using chlorhexidine as a cleansing solution. Using a 25- gauge inch and a half needle 3 cc of a solution containing 40 mg of Depo-Medrol and 6 cc of 1% lidocaine +6 cc of 0.25% Marcaine was injected in a fanning fashion at 3 sites. Patient tolerated procedure without difficulty. There were no complications. Plan and Disposition:: Patient was discharged without incident.
[2022-02-12 09:00] VITALS: BP 139/73; PULSE 68; RESP 20; O2SAT 97
== END 2022-02-12 09:00 | disposition home or self-care (01) ==
PROVIDERS: PCP Internal Medicine Adolescent Medicine; Visit Provider Nurse Anesthetist, Certified Registered
DX: M79.18 Myalgia, other site (principal); M54.50 Low back pain, unspecified
CPT/HCPCS: 20552; J1040

== ENCOUNTER → 2022-02-17 11:28 | Outpatient (CLI) | payer MEDICARE, OTHER, SELFPAY | PROVIDERS: PCP Internal Medicine Adolescent Medicine; Visit Provider Urology | DX: N31.9 Neuromuscular dysfunction of bladder, unspecified (principal); Z01.812 Encounter for preprocedural laboratory examination; Z20.822 Contact with and (suspected) exposure to COVID-19 | CPT/HCPCS: C9803; U0003; U0005 ==

== ENCOUNTER 2022-02-19 07:26 | Day surgery (SDC) | payer MEDICARE, OTHER, SELFPAY ==
[2022-02-19 07:54] VITALS: BP 158/59; PULSE 58; RESP 18; TEMP 36.8; O2SAT 97; BMI 36.9
--- NOTE | 2022-02-19 13:22 | P.PN_ITS ---
[facility] Anesthesia Checklist - Structural Data Admitted From: Home Planned Operative Procedure/s: bladder stim Consent for Planned Operative Procedure(s) Verified: Yes - Additional verifications Anesthesia Reactions: No Hx Blood Transfusions: No Blood Transfusion Reaction: No - Airway Assessment C-Spine Mobility Assessed: Yes TMJ Mobility Assessed: Yes Dentition: Good Dentition - Neurological Assessment Level of Consciousness: Awake, Alert, Appropriate - Anesthesia Plan Anesthesia Risk discussed: Yes Anesthesia Plan: Verified ASA Class: III Anesthesia Type: MAC [facility] History I have reviewed the patient's past medical history: Yes Medical History: Reports:: BPH, Congestive Heart Failure, Chronic Obstructive Pulmonary Disease (COPD), Coronary Artery Disease, Gastroesophageal Reflux Disease(GERD), Hyperlipidemia, Hypertension, Urinary Tract Infection Denies:: Cancer, Diabetes Mellitus Type 1, Diabetes Mellitus Type 2, Internal Pacemaker, MRSA, Seizures *Have you ever received a pneumonia vaccine?: Yes *Have you received a flu vaccine this season?: Yes Other Medical History: Reports: Anemia, Arthritis, Cataracts, Hypothyroidism, Thyroid Disease. Denies: Blood Transfusion Reaction Anesthesia experience/problems:: none Laterality Cases: Right: Arthroscopy Shoulder, Bilateral: Arthroscopy Hip, Total Hip Replacement Other Surgeries: Yes: No Previous Surgery, Cancer Surgery, Cardiac Catheterization, Colonoscopy, Coronary Stent, Hernia Repair, Other. No: Pacemaker Amputation: No Fractures: Yes (LOWER BACK VERTEBRA) - *Social History Last grade of school completed: High school graduate Smoking Status: Never smoker # Packs/Day (cigarettes): 1 #Yrs smoked (if former smoker): 40 Alcohol Intake: never Substance Use Type: denies use *Occupational Status:: retired Housing: house Household Members: spouse *Travel in the last 8 weeks: None Family Hx:: Cancer, Coronary Artery Disease, Stroke
--- NOTE | 2022-02-19 14:05 | XR_ITS ---
FINAL REPORT CLINICAL HISTORY: OR IMAGES, INTERSTIM, bladder stimulator. fluoro time: .39 FINDINGS: Fluoroscopic guidance was provided for the operating services. Two spot films were provided. 39 seconds of fluoroscopy time was utilized. A bladder stimulator is present. IMPRESSION: 39 seconds of fluoroscopy time. Reviewed, Interpreted and Dictated by Shaquille Xiao III, MD Transcribed by Pohng Khoury Authenticated and [facility]
[2022-02-19 14:30] VITALS: BP 148/78; PULSE 81; RESP 18; TEMP 36.2; O2SAT 94
[2022-02-19 14:40] VITALS: BP 143/77; PULSE 78; RESP 18; TEMP 36.2; O2SAT 94
[2022-02-19 14:55] VITALS: BP 119/69; PULSE 77; RESP 18; TEMP 36.2; O2SAT 95
[2022-02-19 15:10] VITALS: BP 138/78; PULSE 69; RESP 18; TEMP 36.2; O2SAT 94
[2022-02-19 15:45] VITALS: BP 131/66; PULSE 64; RESP 18; TEMP 36.2; O2SAT 97
== END 2022-02-19 15:45 | disposition home or self-care (01) ==
LOC: OR 07:27
PROVIDERS: PCP Internal Medicine Adolescent Medicine; Visit Provider Urology
DX: N31.2 Flaccid neuropathic bladder, not elsewhere classified (principal); N40.1 Benign prostatic hyperplasia with lower urinary tract symptoms; R33.8 Other retention of urine; I11.0 Hypertensive heart disease with heart failure; I50.22 Chronic systolic (congestive) heart failure; K21.9 Gastro-esophageal reflux disease without esophagitis; J44.9 Chronic obstructive pulmonary disease, unspecified; I25.10 Atherosclerotic heart disease of native coronary artery without angina pectoris; E78.5 Hyperlipidemia, unspecified; D64.9 Anemia, unspecified; Z79.899 Other long term (current) drug therapy
CPT/HCPCS: 64561; 72220; 76000; 96374; C1778; C1883

== ENCOUNTER → 2022-02-22 09:13 | Outpatient (POV) | payer MEDICARE, OTHER, SELFPAY ==
[2022-02-22 09:35] VITALS: BP 153/76; PULSE 75; RESP 20; TEMP 36.4; O2SAT 99; BMI 37.5
--- NOTE | 2022-02-22 10:49 | HMH.PAINSOAP ---
[facility] Pain Management SOAP Note Subjective:: Patient is a pleasant 76-year-old male who presents today for follow-up after trigger point injections around the lumbar paraspinous muscles. Patient is currently being treated for myofascial pain, chronic low back pain, degenerative disc disease of the lumbar spine, lumbar radiculopathy symptoms. Patient has an extensive surgical history including a discectomy and lumbar fusion of L5-S1, bilateral hip replacement, bilateral rotator cuff repair. After the procedure, patient had significant relief of 90 to 100%. This is the patient's second trigger point injections that provided significant relief. He rates his pain today as 2 out of 10. For pain he takes gabapentin 300 mg 3 times a day and Percocet as needed that are both prescribed by Dr. Rodriguez. [facility] [phone] with a morphine equivalent of 23. Review of Systems: General: No recent weight changes, no fever, no sleep disturbances Respiratory: No cough, no shortness of air, no recurring pulmonary infections Cardiovascular/peripheral vascular: No chest pain, no palpitations, no edema, no shortness of breath Gastrointestinal: No new onset incontinence, normal bowel movements reported Genitourinary: No new onset incontinence Musculoskeletal: Improving low back pain Psychiatric: [Normal mood/affect] Neurological: [Denies weakness in extremities], [denies balance issues] Objective:: Physical Exam: General: Alert and oriented x3, no acute distress, pleasant and cooperative Lungs: Respirations even and unlabored, symmetrical chest expansion Eyes: PERRL Musculoskeletal: Flexion and extension of lumbar [spine] somewhat guarded secondary to pain, [antalgic gait noted] Neurological: Speech clear, no gross sensory deficit Assessment:: Degenerative disc disease of lumbar spine with lumbar radiculopathy symptoms, postlaminectomy syndrome, myofascial pain, history of lumbar fusion and discectomy Plan:: Patient continues to have significant relief after the trigger point injections around the lumbar paraspinous muscles. We will follow-up with this patient in 3 months to reevaluate chronic pain syndrome and to see if he needs repeat injection. Patient has been instructed to contact the clinic with any concerns before the next appointment. Dr. Jorgensen has reviewed this note and agrees with this plan of care. This note was dictated using voice recognition software and make contain errors or omissions. [facility] History Medical History: Reports:: BPH, Congestive Heart Failure, Chronic Obstructive Pulmonary Disease (COPD), Coronary Artery Disease, Gastroesophageal Reflux Disease(GERD), Hyperlipidemia, Hypertension, Urinary Tract Infection Denies:: Cancer, Diabetes Mellitus Type 1, Diabetes Mellitus Type 2, Internal Pacemaker, MRSA, Seizures *Have you ever received a pneumonia vaccine?: Yes *Have you received a flu vaccine this season?: Yes Other Medical History: Reports: Anemia, Arthritis, Cataracts, Hypothyroidism, Thyroid Disease. Denies: Blood Transfusion Reaction Laterality Cases: Right: Arthroscopy Shoulder, Bilateral: Arthroscopy Hip, Total Hip Replacement Other Surgeries: Yes: No Previous Surgery, Cancer Surgery, Cardiac Catheterization, Colonoscopy, Coronary Stent, Hernia Repair, Other. No: Pacemaker Amputation: No Fractures: Yes (LOWER BACK VERTEBRA) - *Social History Smoking Status: Never smoker # Packs/Day (cigarettes): 1 #Yrs smoked (if former smoker): 40 Alcohol Intake: never Substance Use Type: denies use *Occupational Status:: retired Housing: house Household Members: spouse *Travel in the last 8 weeks: None Family Hx:: Cancer, Coronary Artery Disease, Stroke
== END ==
PROVIDERS: Visit Provider Student in an Organized Health Care Education/Training Program
DX: M51.16 Intervertebral disc disorders with radiculopathy, lumbar region (principal); M96.1 Postlaminectomy syndrome, not elsewhere classified; M79.10 Myalgia, unspecified site
CPT/HCPCS: 99212; G0463

== ENCOUNTER → 2022-02-24 10:52 | Outpatient (CLI) | payer MEDICARE, OTHER, SELFPAY | PROVIDERS: PCP Internal Medicine Adolescent Medicine; Visit Provider Urology | DX: Z01.812 Encounter for preprocedural laboratory examination (principal); Z20.822 Contact with and (suspected) exposure to COVID-19 | CPT/HCPCS: C9803; U0003; U0005 ==

== ENCOUNTER → 2022-03-10 14:10 | Outpatient (CLI) | payer MEDICARE, OTHER, SELFPAY | PROVIDERS: PCP Internal Medicine Adolescent Medicine; Visit Provider Urology | DX: N31.9 Neuromuscular dysfunction of bladder, unspecified (principal); Z01.812 Encounter for preprocedural laboratory examination; Z20.822 Contact with and (suspected) exposure to COVID-19 | CPT/HCPCS: C9803; U0003; U0005 ==

== ENCOUNTER 2022-03-12 06:03 | Day surgery (SDC) | payer MEDICARE, OTHER, SELFPAY ==
--- NOTE | 2022-02-19 14:39 | HMH.OPNOTE ---
Date of procedure: 02/19/22 Pre-op Diagnosis:: Atonic bladder Post-op Diagnosis:: Atonic bladder Procedure performed:: Stage I InterStim placement Surgeon:: Rajesh Crowder MD RETAIL MANAGER IN TRAINING:: Mika Burdick Anesthesia: MAC Estimated blood loss (mL): 0 Clinical Note:: Patient is a 76-year-old white male with incomplete bladder emptying. Cystoscopy revealed no evidence of prostatic obstruction. Patient has been in and out catheterize with residuals greater than 350 cc. He presents for InterStim stage I. Operative findings:: InterStim stage I performed without difficulty. Operative note:: Patient taken to the operating room after informed consent was obtained. Patient was placed in the prone position and monitored anesthesia care administered. Pillows were placed under the lower abdomen to flatten the sacrum and under his shins to allow the toes to dangle freely. Ground pad was placed on the bottom of the patient's foot and the proximal ends of the test stimulation cable were connected to the ground pad and that EN S. Patient was prepped and draped in the standard surgical fashion. The C arm was moved into the AP position to provide fluoroscopic guidance of the sacrum. The medial edges of the foramina were identified and marked. C-arm was then moved into the lateral position to identify the S3 foramen. Once the needle entry point was determined local injection of 1% lidocaine was administered. A 3.5 inch foramen needle was placed in the superior, medial aspect of the S3 foramen and appropriate needle depth was visualized utilizing fluoroscopy in the lateral view. Proper S3 needle location was also confirmed by direct observation of the lifting of the perineal and plantar flexion of the great toe utilizing a test stimulation cable, the EMS and program The foramen needle stylette was removed and a directional guidewire was placed through the needle using markers on the guide to assure appropriate depth. The foramen needle was removed by sliding over the directional guide. A small incision was made peripherally to the directional guide through the skin. The lead introducer with dilator was placed over the directional guide and utilizing fluoroscopic guidance the lead introducer was advanced until the radiopaque marker was confirmed penitentiary through the foramen. The dilator was removed along with the directional guide. Using fluoroscopy the tined lead with bent stylette was placed through the introducer until electrodes 2 and 3 straddled the anterior surface of the sacrum. All 4 electrodes were tested observing aminta and plantar flexion of the great toe utilizing these test stimulation cable, the E and S and enhanced verify cad cam programmer. After satisfactory lead positioning was confirmed the introducer was retracted over the lead under continuous fluoroscopy deploying the tines into presacral tissue. Retesting of all 4 electrodes confirming appropriate responses was completed. The future internal neurostimulator pocket site was identified below the iliac crest and lateral to the sacrum. Local was administered and an incision was made into the subcutaneous tissue creating a connection pocket site. Blunt dissection was used to create a small pocket with hemostasis achieved. Tunneling tool with sheath and dilator tip was placed from the lead insertion site subcutaneously to the small incised connection pocket site. The tunneling tool was removed and the lead was fed through the sheath exiting at the connection pocket site. The sheath was removed. Percutaneous exit site was identified and numbed using 1% lidocaine at a selected site superior to our midline insertion site. An incision was made at the contralateral percutaneous extension side. The tunneling tool was reassembled with the dilator tip excluding the tunneling tube. The tunneling tool was inserted at the pocket connection site and tunneled to the percutaneous extension exit site. The dilator tip wa
[2022-03-12 06:24] VITALS: BP 138/63; PULSE 69; RESP 20; TEMP 36.1; O2SAT 97; BMI 37.5
--- NOTE | 2022-03-12 07:15 | HMH.ANESCL ---
[facility] Anesthesia Checklist - Patient Identification Patient Identification: Arm Band - Structural Data Admitted From: Home Planned Operative Procedure/s: Interstim removal Consent for Planned Operative Procedure(s) Verified: Yes - NPO Status Verified Time NPO: 00:00 - Additional verifications Anesthesia Reactions: No Hx Blood Transfusions: No Blood Transfusion Reaction: No - Airway Assessment C-Spine Mobility Assessed: Yes TMJ Mobility Assessed: Yes Dentition: Good Dentition - Neurological Assessment Level of Consciousness: Awake Hx Seizures: No Numbness or tingling in extremities: No - Anesthesia Plan Anesthesia Risk discussed: Yes Anesthesia Plan: Verified ASA Class: III Anesthesia Type: MAC [facility] History I have reviewed the patient's past medical history: Yes Medical History: Reports:: BPH, Congestive Heart Failure, Chronic Obstructive Pulmonary Disease (COPD), Coronary Artery Disease, Gastroesophageal Reflux Disease(GERD), Hyperlipidemia, Hypertension, Urinary Tract Infection Denies:: Cancer, Diabetes Mellitus Type 1, Diabetes Mellitus Type 2, Internal Pacemaker, MRSA, Seizures *Have you ever received a pneumonia vaccine?: Yes *Have you received a flu vaccine this season?: Yes Other Medical History: Reports: Anemia, Arthritis, Cataracts, Hypothyroidism, Thyroid Disease. Denies: Blood Transfusion Reaction Anesthesia experience/problems:: None Laterality Cases: Right: Arthroscopy Shoulder, Bilateral: Arthroscopy Hip, Total Hip Replacement Other Surgeries: Yes: No Previous Surgery, Cancer Surgery, Cardiac Catheterization, Colonoscopy, Coronary Stent, Hernia Repair, Other. No: Pacemaker Amputation: No Fractures: Yes (LOWER BACK VERTEBRA) - *Social History Last grade of school completed: High school graduate Smoking Status: Never smoker # Packs/Day (cigarettes): 1 #Yrs smoked (if former smoker): 40 Alcohol Intake: never Substance Use Type: denies use *Occupational Status:: retired Housing: house Household Members: spouse *Travel in the last 8 weeks: None Family Hx:: Cancer, Coronary Artery Disease, Stroke
[2022-03-12 08:58] VITALS: BP 114/63; PULSE 62; RESP 18; TEMP 36.1; O2SAT 97
[2022-03-12 09:08] VITALS: BP 129/72; PULSE 58; RESP 18; O2SAT 97
[2022-03-12 09:18] VITALS: BP 134/73; PULSE 60; RESP 18; O2SAT 97
[2022-03-12 09:28] VITALS: BP 204/90; PULSE 62; RESP 18; O2SAT 98
[2022-03-12 09:40] VITALS: BP 176/87; PULSE 59; RESP 18; O2SAT 99
--- NOTE | 2022-03-12 13:19 | P.OP_ITS ---
Date of procedure: 03/12/22 Pre-op Diagnosis:: Atonic bladder Post-op Diagnosis:: Atonic bladder Procedure performed:: Removal of stage I InterStim electrodes and connector Surgeon:: Rajesh Crowder MD HEALTH INFORMATION ADMINISTRATOR:: Logan Jefferson Anesthesia: MAC Estimated blood loss (mL): 5 Clinical Note:: 76-year-old white male with incomplete bladder emptying has undergone a stage I InterStim trial. He has not fared as well as we hoped and he still has large residuals on in and out catheterization. He presents for InterStim stage I removal. Operative findings:: Leads and connector removed without difficulty. Operative note:: Patient taken to the operating room after informed consent was obtained. He was placed in the prone position on the operating table and monitored anesthesia care administered. Preoperative antibiotics and sequential compression devices placed. He was padded appropriately. He was prepped and draped in the standard surgical fashion and the previously made buttock incision had healed well. Local anesthetic was placed in the line of the buttock incision and the incision then opened. The lead and connector were found easily and the lead going to the external device was cut at the connector and pulled out from the skin site. The lead site was anesthetized with local anesthetic and a small incision was made over the previously made insertion site. A right angle was used to locate the wire and it was found easily. The wire was cut at the connector site and the lead was pulled through to the lead insertion site. We had dissected around the wire deeper and then with gentle steady traction pulled up on the lead and the electrodes were removed intact. The incisions were then irrigated with antibiotic solution and hemostasis achieved. Buttock incision was closed with a running 3-0 chromic in the Bobo fascia layer and the skin closed with a running 4-0 Vicryl in a subcuticular fashion. A 4-0 Vicryl was placed in the skin at the small insertion site and Steri-Strips placed over the wounds. Sterile dressing and Tegaderm applied. Patient tolerated procedure well no complications. Condition: stable Disposition: same day Specimens:: Lead and connector Complications:: None
== END 2022-03-12 09:45 | disposition home or self-care (01) ==
LOC: OR 06:05
PROVIDERS: PCP Internal Medicine Adolescent Medicine; Visit Provider Urology
DX: N31.2 Flaccid neuropathic bladder, not elsewhere classified (principal); I11.0 Hypertensive heart disease with heart failure; I50.9 Heart failure, unspecified; N40.0 Benign prostatic hyperplasia without lower urinary tract symptoms; J44.9 Chronic obstructive pulmonary disease, unspecified; I25.10 Atherosclerotic heart disease of native coronary artery without angina pectoris; K21.9 Gastro-esophageal reflux disease without esophagitis; E78.5 Hyperlipidemia, unspecified; Z87.440 Personal history of urinary (tract) infections; Z79.82 Long term (current) use of aspirin; Z79.899 Other long term (current) drug therapy
CPT/HCPCS: 64585; 96372; 96374

== ENCOUNTER 2022-03-22 13:31 | Emergency (ER) | payer MEDICARE, OTHER, SELFPAY ==
[2022-03-22 13:31] VITALS: BP 146/58; PULSE 68; RESP 18; TEMP 37.1; O2SAT 96; BMI 37.5
--- NOTE | 2022-03-22 13:44 | XR_ITS ---
FINAL REPORT CLINICAL HISTORY: pain, right hip total hip replacement with revision and has pain last few days FINDINGS: RIGHT HIP Two views of the right hip including an AP pelvis were obtained. There are postoperative changes in the lower lumbar spine and bilateral hip arthroplasty. There are soft tissue calcifications at both hips, left greater than right. There are vascular calcifications. IMPRESSION: Postoperative change with no acute process. Reviewed, Interpreted and Dictated by Shaquille Xiao III, MD Transcribed by Zoila Howell Authenticated and [facility]
[2022-03-22 14:01] VITALS: BP 134/46; PULSE 58; RESP 18; O2SAT 97
--- NOTE | 2022-03-22 14:18 | HMH.EDGENADL ---
ED Disposition Clinical Impression: Sprain of right hip Qualifiers: Encounter type: initial encounter Qualified Code(s): S73.101A - Unspecified sprain of right hip, initial encounter Disposition: Home, Self-Care Condition on Discharge: Good Instructions: DI for Acute Pain -- Adult Referrals: Sterling Rodriguez MD [Primary Care Provider] - - Critical Care Critical Care Time: No Attestation: On 03/22/22, the high probability of a clinically significant, sudden or life threatening deterioration of the following system(s) required my full and direct attention, intervention and personal management. The time I documented below is in addition to time spent performing reported procedures but includes the following listed in this critical care notation. Medical Decision Making - Jesus Inquiry Pt receiving controlled substance: No Vital Signs: 03/22/22 13:31 03/22/22 14:01 03/22/22 15:00 Temperature 98.7 F Temperature Source Oral Pulse Rate 58 L 60 Pulse Rate [Left Radial] 68 Respiratory Rate 18 18 Blood Pressure 134/46 L 127/70 Blood Pressure [Right Arm] 146/58 H Blood Pressure Mean 75 89 Blood Pressure Mean [Right Arm] 87 Blood Pressure Source [Right Arm] Automatic Cuff Blood Pressure Position [Right Arm] Sitting 02 Sat by Pulse Oximetry 96 97 93 L Oxygen Delivery Method Room Air Room Air 03/22/22 15:31 Temperature Temperature Source Pulse Rate 66 Pulse Rate [Left Radial] Respiratory Rate Blood Pressure 148/67 H Blood Pressure [Right Arm] Blood Pressure Mean 80 Blood Pressure Mean [Right Arm] Blood Pressure Source [Right Arm] Blood Pressure Position [Right Arm] 02 Sat by Pulse Oximetry 97 Oxygen Delivery Method Room Air Orders (Tests/Meds): ED MEDICATIONS Discontinued Medications Generic Name Dose Route Start Last Admin Trade Name Freq PRN Reason Stop Dose Admin Hydromorphone HCl 1 mg 03/22/22 14:15 03/22/22 14:20 Hydromorphone 2mg/Ml Syringe IV 03/22/22 14:16 1 mg ONCE ONE Administration General Adult HPI - General Chief complaint: PAIN Stated complaint: FALL Time Seen by Provider: 03/22/22 14:18 Mode of Arrival: EMS Limitations: No Limitations Description of Symptoms (Recalled from ER Triage Doc. by RN): c/o right hip pain after falling out of the recliner prior to arrival. Denies any other injuries - History of Present Illness HPI narrative: Presents with sudden onset of severe right hip pain after having fallen while getting out of his recliner. He denies additional injuries. Does have a history of bilateral hip prostheses. Patient states the pain is worse with attempts at movement of the hip. Prior history of hip dislocation. - Related Data Home Medications Medication Instructions Recorded Confirmed Gabapentin [Gabapentin 300mg Cap] 300 - 600 mg PO BID 09/26/17 03/12/22 Montelukast Sodium [Singulair 10mg 10 mg PO HS 09/26/17 03/12/22 tablet] Pantoprazole Sodium [Protonix 40mg 40 mg PO DAILY 09/26/17 03/12/22 tablet] Oxycodone HCl/Acetaminophen 1 each PO BIDP PRN 08/08/18 03/12/22 [Percocet 7.5-325 mg Tablet] Albuterol Sulfate [Proair 2 puffs IH QIDP PRN 04/25/19 03/12/22 Respiclick] carvedilol 12.5 mg tablet 12.5 mg PO BID tab 08/20/19 03/12/22 aspirin 81 mg tablet,delayed 81 mg PO DAILY 12/10/19 03/12/22 release Ipratropium/Albuterol Sulfate 3 ml IH TID 01/24/20 03/12/22 [Duoneb 3mL neb] Linaclotide [Linzess] 72 mcg PO DAILY 11/17/20 03/12/22 Budesonide/Formoterol Fumarate 2 puffs IH BID 11/18/20 03/12/22 [Symbicort 160-4.5 Mcg Inhaler] Simvastatin [Zocor 20mg] 20 mg PO HS 11/18/20 03/12/22 furosemide 40 mg tablet 40 mg PO DIRECTED tab 11/24/20 03/12/22 levothyroxine 75 mcg tablet 75 mcg PO DAILY tab 05/25/21 03/12/22 cyanocobalamin (vitamin B-12) 2,500 mcg PO DAILY 08/25/21 03/12/22 2,500 mcg tablet fluoxetine 20 mg capsule 60 mg PO DAILY cap 11/03/21 03/12/22 amlodipine
--- NOTE | 2022-03-22 14:38 | PC.NURSE ---
Teresa Montoya made rounds assisted with simple task
[2022-03-22 15:00] VITALS: BP 127/70; PULSE 60; O2SAT 93
[2022-03-22 15:31] VITALS: BP 148/67; PULSE 66; O2SAT 97
[2022-03-22 16:30] VITALS: BP 146/67; PULSE 69; O2SAT 95
[2022-03-22 17:15] VITALS: BP 146/67; PULSE 67; RESP 18; TEMP 37.1; O2SAT 95
--- NOTE | 2022-03-22 17:16 | PC.NURSE ---
assisted pt outside in wheelchair and into vehicle. at side
== END 2022-03-22 17:16 | disposition home or self-care (01) ==
PROVIDERS: Emergency Provider Emergency Medicine; PCP Internal Medicine Adolescent Medicine
DX: S73.101A Unspecified sprain of right hip, initial encounter (principal); W07.XXXA Fall from chair, initial encounter; Z87.39 Personal history of other diseases of the musculoskeletal system and connective tissue; Z96.643 Presence of artificial hip joint, bilateral; Z79.82 Long term (current) use of aspirin; Z79.899 Other long term (current) drug therapy; Z88.1 Allergy status to other antibiotic agents; Z88.6 Allergy status to analgesic agent; Z88.8 Allergy status to other drugs, medicaments and biological substances; J44.9 Chronic obstructive pulmonary disease, unspecified; I25.10 Atherosclerotic heart disease of native coronary artery without angina pectoris; I10 Essential (primary) hypertension; E78.5 Hyperlipidemia, unspecified
CPT/HCPCS: 73502; 96374; 99284

== ENCOUNTER → 2022-05-25 08:17 | Outpatient (POV) | payer MEDICARE, OTHER, SELFPAY ==
[2022-05-25 09:00] VITALS: BP 151/70; PULSE 80; RESP 20; TEMP 36.8; O2SAT 96; BMI 37.2
--- NOTE | 2022-05-25 12:37 | EXP.PAIN.SOA ---
[facility] Pain Management SOAP Note Subjective:: This patient is a pleasant 76-year-old male that comes our clinic today for a follow-up visit regarding 3 recent falls he has had in the last 3 months. March 22 he fell. April 22 he fell out of the shower. May 17 he fell getting out of his truck. Patient's main complaint is right lateral hip pain and right posterior hip pain. The last 2 falls he fell onto his right side. He has bruising in the lumbar spine area. After the March 22 fall he had an emergency room visit with x-rays that were negative. However, after his last 2 falls he has not had any x-rays. I think it would be prudent to get a right pelvis x-ray including the right hip joint. Assuming these are negative I would recommend right SI joint injection along with right trochanteric bursa injection. Upon examination he has extreme point tenderness over the right SI joint. Also the right trochanteric bursa. Patient is ambulatory. Uses a cane for stability. I will order his x-ray today. Patient describes his pain as constant, dull, aching. He rates the pain 8/10. Patient has positive Surya's test on the right. Positive right SI compression test. Patient has been taking anti-inflammatories with no relief. Patient is taking gabapentin 300 mg 1 p.o. 3 times daily. Also, Percocet 7.5 mg as needed. Both are prescribed by Dr. Vallejo. Objective:: Patient is awake alert [place] x3. In no acute distress. Flexion-extension lumbar spine somewhat guarded secondary to pain. Deep tendon reflexes upper and lower extremities normal. Motor strength upper and lower extremities normal. There is no gross sensory deficit. Gait is antalgic requiring a cane for stability. Assessment:: Degenerative disc disease lumbar spine multilevels. Lumbar radiculopathy symptoms. Right sacroiliitis. Right trochanteric bursitis Plan:: Patient will go for right pelvis x-ray including the right hip. If x-rays are negative. We will schedule the patient for right SI joint injection along with right trochanteric bursa injection. [facility] Medical History Bilateral carotid artery stenosis Surgical History History of right-sided carotid endarterectomy Social History (Updated 05/25/22 @ 09:39 by Keke Arenas RN) Smoking Status: Never smoker second hand exposure: No alcohol intake: never substance use type: denies use current occupational status: retired Travel in the last 8 weeks: Inside the [place] household members: spouse housing: house current occupational exposures/hazards: No caffeine: No
== END ==
PROVIDERS: PCP Internal Medicine Adolescent Medicine; Visit Provider Nurse Anesthetist, Certified Registered
DX: M51.16 Intervertebral disc disorders with radiculopathy, lumbar region (principal); M46.1 Sacroiliitis, not elsewhere classified; M70.61 Trochanteric bursitis, right hip
CPT/HCPCS: 99212; G0463

== ENCOUNTER → 2022-05-25 09:28 | Outpatient (CLI) | payer MEDICARE, OTHER, SELFPAY ==
--- NOTE | 2022-05-25 09:32 | XR_ITS ---
FINAL REPORT CLINICAL HISTORY: RT HIP PAIN, BACK PAIN COMPARISON: 03/22/2022 FINDINGS: Right hip/pelvis Five views were obtained. There is no acute fracture or dislocation. There are bilateral joint prostheses. There is posterior fusion at L5-S1. No soft tissue abnormality is identified. IMPRESSION: No acute process. Reviewed, Interpreted and Dictated by Cheo Mirza MD Transcribed by Teresa Land Authenticated and [facility]
== END ==
PROVIDERS: PCP Internal Medicine Adolescent Medicine; Visit Provider Nurse Anesthetist, Certified Registered
DX: M25.551 Pain in right hip (principal); R10.2 Pelvic and perineal pain
CPT/HCPCS: 73502; 99212; G0463

== ENCOUNTER 2022-06-01 13:00 | Outpatient (RCR) | payer MEDICARE, OTHER, SELFPAY | END 2022-06-01 13:05 | disposition home or self-care (01) | LOC: PT 13:00 | PROVIDERS: PCP Internal Medicine Adolescent Medicine; Visit Provider Physician Assistant | DX: M25.551 Pain in right hip (principal); Z96.641 Presence of right artificial hip joint | CPT/HCPCS: 97110; 97163; 97535 ==

== ENCOUNTER 2022-06-08 09:38 | Day surgery (SDC) | payer MEDICARE, OTHER, SELFPAY ==
[2022-06-08 09:52] VITALS: BP 158/71; PULSE 67; RESP 20; O2SAT 97; BMI 37.2
[2022-06-08 10:07] VITALS: O2SAT 7
[2022-06-08 10:09] VITALS: RESP 18; O2SAT 97
--- NOTE | 2022-06-08 10:12 | P.PCN_ITS ---
Procedure Date: 06/08/22 Time: 10:13 Anesthesiologist:: Francisco Shah CRNA Complications:: None Pre-procedure Diagnosis:: Right sacroiliitis. Right greater trochanteric bursitis Post-procedure Diagnosis:: Same Indications for Procedure:: Patient is a pleasant 76-year-old male that comes our clinic today for right sacroiliac joint injection and right trochanteric bursa injection. Patient complains of pain with ambulation. Pain lying on the right side. Patient has difficulty transitioning from sitting to standing. He rates his pain 7/10. Procedure Details:: Procedure: Right sacroliliac joint injection under fluoroscopy Informed consent was obtained and the risk and benefits of the procedure were explained to the patient.~ The patient was taken to the procedure room and noninvasive monitors were placed including noninvasive blood pressure cuff and pulse oximeter.~ The patient was placed prone on the procedure table.~ The~ right hip was cleansed using Betadine as a cleansing solution.~ C-arm fluorosocpy was used to view the right SI joint.~ The skin and subcutaneous tissues were anesthetized using Lidocaine 1.5% and a 25-gauge needle.~ After this, a 22-gauge spinal needle was inserted under fluoroscopic guidance into the inferior aspect of the right SI joint.~ Omnipaque dye was injected and a good spread was seen throughout the joint.~ After this, approximately 5 mL of bupivacaine 0.25% and Depo-Medrol 40 mg was incrementally injected into the sacroiliac joint.~ The patient tolerated the procedure well with no complications.~ The patient was observed in the Pain Clinic, then discharged home neurologically intact.~ Procedure: Right trochanteric bursa injection under fluoroscopy We then moved to the right trochanteric bursa.~ C-arm fluoroscopy was used to view the left greater trochanter.~ The skin and subcutaneous tissues overlying the right greater trochanter were anesthetized using lidocaine, 1.5% and a 25- gauge needle.~ After this, a 22-gauge spinal needle was inserted and advanced until it contacted the right greater trochanter.~ Dye was injected and good spread was seen throughout the right trochanteric bursa. After this, approximately 5 mL of bupivacaine, 0.25% and Depo-Medrol, 40 mg was incre mentally injected into the right right trochanteric bursa.~ The patient tolerated the procedure well with no complications. Plan and Disposition:: Patient was discharged essentially without pain. Sitting and standing, walking, flexion and extension.
[2022-06-08 10:18] VITALS: BP 128/59; PULSE 63; RESP 20; O2SAT 98
== END 2022-06-08 10:19 | disposition home or self-care (01) ==
PROVIDERS: PCP Internal Medicine Adolescent Medicine; Visit Provider Nurse Anesthetist, Certified Registered
DX: M46.1 Sacroiliitis, not elsewhere classified (principal); M70.61 Trochanteric bursitis, right hip
CPT/HCPCS: 20610; 27096; 77002; G0260; J1040

== ENCOUNTER → 2022-06-23 07:26 | Day surgery (SDC) | payer MEDICARE, OTHER, SELFPAY ==
--- NOTE | 2022-06-23 07:30 | MR_ITS ---
FINAL REPORT CLINICAL HISTORY: Vertigo, DIZZINESS, FREQUENT FALLS COMPARISON: 03/12/2020 FINDINGS: Multiplanar MR imaging of the brain was performed without contrast. There is mild age-appropriate atrophy. There are scattered foci of increased T2 signal in the cerebral white matter that have a nonspecific appearance but likely represent severe chronic ischemic/gliotic changes. There is a chronic left periventricular lacunar infarct. There is no evidence of intracranial hemorrhage or mass. No abnormal ventricular dilatation is identified. No abnormal extra-axial fluid collection is seen. No abnormality is seen on the diffusion weighted images. The posterior fossa and brainstem are unremarkable. Normal major vessel vascular flow voids are seen. There are retention cysts or polyps in the maxillary sinuses. IMPRESSION: Age-appropriate atrophy and severe chronic ischemic/gliotic changes. No acute intracranial abnormality. Reviewed, Interpreted and Dictated by Shaquille Xiao III, MD Transcribed by Teresa Land Authenticated and [facility]
[2022-06-23 08:49] VITALS: BMI 37.2
--- NOTE | 2022-06-23 11:05 | HMH.PROCNOTE ---
[facility] Procedure Note Date: 06/23/22 Time: 11:00 Procedure Note:: PROCEDURE: Upright Tilt Table Test REQUESTING PHYSICIAN: Juana Stone MD INDICATION: Dizziness, blackouts, falls BETA BLOCKERS: None in the last 24 hours PRETEST VITAL SIGNS: BP 166/74, HR 75bpm and NSR, O2 sats 98% (room air) PROCEDURE SUMMARY: Procedure was explained to the patient and he was prepped per protocol; IV started, connected to heart, blood pressure and oxygen saturation monitors. Safety straps were applied. He was then tilted at 60 degrees upright for a total of 30 minutes. He denied having any symptoms other than leg fatigue while upright. He specifically denied any dizziness, lightheadedness, faint feeling or near syncope. His blood pressure increased to 176/85 upon initially being placed upright but then changed very little. The lowest SBP was 170 and the highest was 180. The lowest DBP was 76 and the highest was 91. His HR also changed very little with the lowest being 72bpm and the highest 83bpm. His rhythm was normal sinus throughout. His O2 saturation remained in the high 90% range throughout. CONCLUSION: Negative tilt table test. Hypertension noted and patient advised to resume his Carvedilol which was held for the procedure.
== END ==
PROVIDERS: PCP Internal Medicine Adolescent Medicine; Visit Provider Specialist
DX: Z86.73 Personal history of transient ischemic attack (TIA), and cerebral infarction without residual deficits (principal); R42 Dizziness and giddiness; R55 Syncope and collapse; R29.6 Repeated falls
CPT/HCPCS: 70551; 93270; 93660

== ENCOUNTER → 2022-06-28 10:13 | Outpatient (POV) | payer MEDICARE, OTHER, SELFPAY ==
[2022-06-28 10:57] VITALS: BP 114/49; PULSE 73; RESP 18; TEMP 36.9; O2SAT 98; BMI 29.8
--- NOTE | 2022-06-28 11:26 | EXP.PAIN.SOA ---
[facility] Pain Management SOAP Note Subjective:: Patient is a pleasant 76-year-old male who presents today for follow-up of right SI injection and right bursa injection on 06/08/2022. We are currently treating the patient for degenerative disc disease lumbar spine with lumbar radiculopathy symptoms, sacroiliitis, greater trochanteric bursitis. Today the patient states that he has had about 85% relief following this these injections and feels like they are still providing some improvement of his symptoms. Today the patient rates his pain a 2 out of 10. He states the pain is primarily in his low back. Patient denies any new trauma or injury. Patient denies any change to location or type of pain he experiences. Patient states he continues to have frequent falls and is being seen by Dr. Stone to find out the cause of his dizziness. He is scheduled to have an EEG tomorrow. Patient does use ambulatory devices such as a cane and rolling walker to provide better stabilization on his feet. Patient is currently managed with gabapentin [address] Vallejo's office as well as Percocet 7.5 mg twice a day as needed. Patient denies any side effects from these medications. He states these medications do adequately help manage his pain symptoms. Patient states he only takes the Percocet in times of of worsening/significant pain. His Jesus is [phone]. It is been reviewed and appropriate. Review of Systems: General: No recent weight changes, no fever, no sleep disturbances Respiratory: No cough, no shortness of air, no recurring pulmonary infections Cardiovascular/peripheral vascular: No chest pain, no palpitations, no edema, no shortness of breath Gastrointestinal: No new onset incontinence, normal bowel movements reported Genitourinary: No new onset incontinence Musculoskeletal: Low back pain Psychiatric: [Normal mood/affect] Neurological: [Denies weakness in extremities], [denies balance issues] Objective:: Physical Exam: General: Alert and oriented x3, no acute distress, pleasant and cooperative Lungs: Respirations even and unlabored, symmetrical chest expansion Eyes: PERRL Musculoskeletal: Flexion and extension of lumbar [spine] somewhat guarded secondary to pain, [antalgic gait noted] Neurological: Speech clear, no gross sensory deficit Assessment:: Degenerative disc disease lumbar spine multilevels with lumbar radiculopathy symptoms, sacroiliitis, greater trochanteric bursitis Plan:: Patient has had significant improvement of his pain symptoms following his last injections. At this time he does not need additional injections. We will follow-up with the patient in 1 month. Patient will return to clinic in 1 month for reevaluation of symptoms and follow-up. Patient has been instructed to contact the clinic with any concerns before the next appointment. Dr. Jorgensen has reviewed this note and agrees with this plan of care. This note was dictated using voice recognition software and make contain errors or omissions. [facility] Medical History Anxiety Bilateral carotid artery stenosis CHF (congestive heart failure) GERD (gastroesophageal reflux disease) Hypothyroid Skin cancer Thalamic hemorrhage with stroke Surgical History History of bilateral hip replacements History of right shoulder replacement History of right-sided carotid endarterectomy Family History Other Dementia Heart attack Hypertension Stroke Social History (Updated 06/23/22 @ 08:32 by Valerie Nolan RN) Smoking Status: Former smoker pack-years: 40 smoking status stop date: 1989 second hand exposure: No alcohol intake: never substance use type: denies use current occupational status: retired Travel in the last 8 weeks: None household members: spouse housing: house current occupational exposures/hazards: No caffe
== END ==
PROVIDERS: PCP Internal Medicine Adolescent Medicine; Visit Provider Nurse Practitioner Family
DX: M51.16 Intervertebral disc disorders with radiculopathy, lumbar region (principal); M46.1 Sacroiliitis, not elsewhere classified; M70.60 Trochanteric bursitis, unspecified hip
CPT/HCPCS: 99212; G0463